=== PATIENT | female | born 1950 | race Caucasian/White ===

== ENCOUNTER → 2019-01-20 09:58 | Outpatient (CLI) | payer OTHER, MEDICAID, SELFPAY ==
--- NOTE | 2019-01-20 | DI.RAD.S_ITS ---
This blank DEXA report has been sent in error by the PACS system. The correct and complete report will be forthcoming in 1-2 days. Thank you for your patience and understanding. Dictated by: Alex Mitchell M.D. on 01/20/2019 at 12:11 Approved by: Rikki Man M.D. on 03/17/2019 at 6:24
== END ==
PROVIDERS: PCP Family Medicine; Visit Provider Family Medicine
DX: Z78.0 Asymptomatic menopausal state (principal); Z90.722 Acquired absence of ovaries, bilateral
CPT/HCPCS: 77080

== ENCOUNTER → 2019-05-26 12:02 | Outpatient (CLI) | payer OTHER, MEDICAID, SELFPAY ==
--- NOTE | 2019-05-26 | DI.US.S_ITS ---
PROCEDURE: US THYROID INDICATIONS: thyroid nodule TECHNIQUE: Real-time scanning was performed of the thyroid gland, with image documentation. COMPARISON: [facility], CT, SOFT TISSUE NECK WITHOUT CONTR, 10/02/2017, 10:51. FINDINGS: Right: Thyroid lobe measures 5.1 x 2.1 x 1.7 cm, and is diffusely heterogeneous in echotexture. Multiple lymph nodes, largest measuring 1.2 cm in AP diameter. Left: Thyroid lobe measures 5.0 x 1.7 x 1.5 cm, and is diffusely heterogeneous in echotexture. Multiple neck lymph nodes, largest measuring 1.1 cm in maximal short axis. Isthmus: 6.0 mm thick. Nodule number: 1 Location: Right mid Size: Decreased at 0.7 x 0.4 x 0.8 cm. Composition: Predominantly solid Echogenicity: Hypoechoic Shape: wider than tall. Margins: Smooth Echogenic foci: None Total points: 4 ACR TI-RADS category: Moderately suspicious Nodule number: 2 Location: Right mid Size: Decreased at 0.4 x 0.3 x 0.3 cm. Composition: Predominantly solid Echogenicity: Hypoechoic Shape: wider than tall. Margins: Smooth Echogenic foci: Punctate internal echogenic foci Total points: 7 ACR TI-RADS category: Highly suspicious Nodule number: 3 Location: Left inferior Size: Slightly increased at 1.2 x 0.8 x 1.0 cm. Composition: Predominantly cystic Echogenicity: Hypoechoic Shape: wider than tall. Margins: Smooth Echogenic foci: None Total points: 2 ACR TI-RADS category: No suspicious Nodule number: 4 Location: Left mid Size: Unchanged 0.6 x 0.4 x 0.5 cm. Composition: Predominantly solid Echogenicity: Hypoechoic Shape: wider than tall. Margins: Smooth Echogenic foci: Internal punctate echogenic foci Total points: 7 ACR TI-RADS category: Highly suspicious IMPRESSION: Bilateral thyroid nodules as above. Recommend continued followup ultrasound as detailed below. Enlarged lymph nodes present. Recommend clinical correlation and management. ACR TI-RADS definitions and recommendations: TI-RADS 1 (benign): 0 points. FNA not needed. TI-RADS 2 (not suspicious): 2 points. FNA not needed. TI-RADS 3 (mildly suspicious): 3 points. * FNA if 2.5 cm or larger, follow up if 1.5 cm or larger (at 1, 3, and 5 years). TI-RADS 4 (moderately suspicious): 4-6 points. * FNA if 1.5 cm or larger, follow up if 1 cm or larger (at 1, 2, 3, and 5 years). TI-RADS 5 (highly suspicious): 7 points or more. * FNA if 1 cm or larger, follow up if 0.5 cm or larger (every year for 5 years). Dictated by: Jorge Luis De Leon [facility] Interpreted: Merlyn Carrington MD on 05/26/2019 at 15:48 Approved by: Merlyn Carrington MD, PhD on 05/27/2019 at 12:19
== END ==
PROVIDERS: PCP Family Medicine; Visit Provider Family Medicine
DX: E04.2 Nontoxic multinodular goiter (principal); R59.0 Localized enlarged lymph nodes
CPT/HCPCS: 76536

== ENCOUNTER 2019-07-18 11:45 | Outpatient (RCR) | payer OTHER, MEDICAID, SELFPAY ==
--- NOTE | 2019-04-30 16:32 | PT.OIE ---
Current Diagnoses Other cervical disc degeneration, unspecified cervical region (04/30/19) Cervicalgia (04/30/19) Abnormal posture (04/30/19) Weakness (04/30/19) Visit Care Team Role Provider Type Margaret Vuong DO Primary Care Provider Non-Staff Specialty: Family Practice Address: [address] [place] [address], [place], [address] Email: Amy Baca MD Attending Provider Non-Staff Specialty: Family Practice Address: [address] [place] [address], [place], [address] Email: Physical Therapy Initial Evaluation PT-OP-A Visit Information Start: 04/29/19 16:22 Freq: Status: Active Protocol: Document 04/30/19 10:15 SAK (Rec: 04/30/19 15:12 SAK [id number]) Out-Patient Physical Therapy Visit Information Visit Information Visit Type Initial Evaluation Visit Start Time 10:15 Visit Stop Time 11:12 Total Visit Minutes 57 Visit Number 1 Number of ORGAN TUNER Visits 0 PT-OP-B Current Condition Start: 04/29/19 16:22 Freq: Status: Active Protocol: Document 04/30/19 10:15 SAK (Rec: 04/30/19 15:12 SAK [id number]) Current Condition History of Current Condition Onset Date 11/13/18 Current Complaints disabling neck pain, occasional left hand numbness History of Current Condition Patient underwent cervical spine surgery including discectomy and fusion C6-C7 per patient; no surgical report available. Has had PT in inpatient rehab then home health, being discharged from home health PT 1 month ago. Was working primarily on gait, balance, did some UE ex. No treatment focused specifically on her neck. Patient reports she spends all day out of bed , doesn't have chair that has neck or head support, spends a lot of time on the computer. States she is unaware of her posture. Reports last x-ray showed bone growth and healing wasn't occuring around her fusion Future Testing and Treatments Planned Having x-ray tomorrow at Treatment Goals Patient/Caregiver Goals Decrease pain, improve activity tolerance. 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 Current Functional Impairments (Reported) Functional Limitations- ADL's painful Functional Limitations- Mobility/Gait walks with FWW Functional Limitations- Work/School painful Personal Factors Other Personal Factors That May Effect obesity Therapy/Recovery PT-OP-C Subjective Start: 04/29/19 16:22 Freq: Status: Active Protocol: Document 04/30/19 10:15 SAK (Rec: 04/30/19 15:12 SAK [id number]) Patient Questionnaires Neck Disability Index NDI Score 52% OP-PT Pain Assessment Location cervical spine, upper to mid thoracic spine Intensity 7 Description Aching,Burning,Pressure, Radiating,Tender,Tightness, Throbbing,Tingling Pain Behaviors Pain Behaviors Facial Grimacing,Guarding, Wincing PT-OP-F Manual Assessment Start: 04/29/19 16:22 Freq: Status: Active Protocol: Document 04/30/19 10:15 SAK (Rec: 04/30/19 15:12 SAK [id number]) Manual Assessments Joint Mobility Assessment Joint Mobility Assessment not assessed due to surgical procedure, plan for repeat x- ray tomorrow PT-OP-G Mobility & Gait Start: 04/29/19 16:22 Freq: Status: Active Protocol: Document 04/30/19 10:15 SAK (Rec: 04/30/19 15:12 SAK [id number]) OP Gait Assessment Gait Gait Assistance Required: Standby Assistance Assistive Devices Assistive Device Front Wheeled Walker Gait Deviations General Gait Pattern Decreased Stride Length, Decreased Feet Clearance, Flexed Trunk Factors Limiting Gait Function Factors Limiting Gait Function Decreased Activity Tolerance, Pain Comments Gait Comments forward head, rounded shoulders PT-OP-H Neuro Start: 04/29/19 16:22 Freq: Status: Active Protocol: Document 04/30/19 10:15 SAK (Rec: 04/30/19 15:12 SAK [id number]) Sensation Evaluation Gross Sensation Sensation Description Paresthesia Dermatome Impairments C5,C6,C7 PT-OP-J Posture/Palpation/Skin Start: 04/29/19 16:22 Freq: Status: Active Protocol: Document 04/30/19 10:15 SAK (Rec: 04/30/19 15:12 SAK [id number]) Posture Evaluation Position Sitting Head/C-Spine Posture Forward Head T-Spine Posture Increased Kyphosis Shoulder Posture (L) Rounded,(R) Rounded Scapula Posture (L) Protracted,(R) Protracted Arm Posture (L) Internally Rotated,(R) Internally Rotated Palpation Assessment Location cervical spine Palpation Findings Tenderness Palpation Details tenderness with minimal palpation. Increased soft tissue tightness cervical spine bilaterally with poor tolerance for palpation, difficult to palpate bony prominences. PT-OP-K Range of Motion Start: 04/29/19 16:22 Freq: Status: Active Protocol: Document 04/30/19 10:15 SAK (Rec: 04/30/19 15:12 [facility] [id number]) Cervical Spine Range of Motion Cervical Spine Active Testing Position Sitting Flexion 60 Extension 10 Rotation Left 48 Rotation Right 57 Lateral Flexion Left 20 Lateral Flexion Right 28 ROM Limitations Pain Shoulder Goniometric Range of Motion Shoulder Active Shoulder ROM WFL Yes Testing Position Sitting Elbow/Forearm Range of Motion Elbow/Forearm elif Elbow/Forearm ROM WFL Yes PT-OP-L Special Tests Start: 04/29/19 16:22 Freq: Status: Active Protocol: Document 04/30/19 10:15 SAK (Rec: 04/30/19 15:12 [facility] [id number]) Special Tests Neural Special Tests- Upper Body Upper Limb Tension Test Test Results positive left PT-OP-M Strength Start: 04/29/19 16:22 Freq: Status: Active Protocol: Document 04/30/19 10:15 SAK (Rec: 04/30/19 15:12 [facility] [id number]) Cervical Spine Strength Cervical Spine Manual Muscle Testing Reason Not Measured Orthopedic Precautions,Pain Shoulder Strength Shoulder Manual Muscle Testing elif Comments demonstrates anti-gravity strength, no MMT due to neck pain and orthopedic precautions Hand Button Machine Operator/Pinch Strength Hand Dominance Hand Dominance Right PT-OP-Q Treatments Start: 04/29/19 16:22 Freq: Status: Active Protocol: Document 04/30/19 10:15 SAK (Rec: 04/30/19 15:12 [facility] [id number]) Self-Care/Home Management Treatment Education Patient Education Home Exercise Program,Pain Management,Posture Other Education issued written HEP sleep support; issued handout Activities Self-Care/Home Management Activities resting supine with ice 1-2x/ day , not waiting until end of day when in pain. Try to obtain chair with headrest for periodic support PT-OP-R Modalities Start: 04/29/19 16:22 Freq: Status: Active Protocol: Document 04/30/19 10:15 [facility] (Rec: 04/30/19 15:12 [facility] [id number]) Hot Pack/Cold Pack Treatment Cold Pack Location cervical spine Patient Position Hooklying Treatment Duration (minutes) 10 Patient Tolerance Good PT-OP-T Assessment and Plan Start: 04/29/19 16:22 Freq: Status: Active Protocol: Document 04/30/19 10:15 [facility] (Rec: 04/30/19 15:12 [facility] [id number]) Physical Therapy Assessment Rehab Potential Rehabilitation Potential Good Evaluation Complexity Number of Personal Factors/Comorbidities 3 or More Number of Body Systems Impaired 3 Clinical Presentation at Evaluation Evolving Impairments Impairments Activity Tolerance,Pain, Posture Goals pain Impairment pain Short Term Goal (STG) Decrease pain to no greater than 5/10 STG Duration 04/30/19 Professor Of Journalism Goal (LTG) Decrease pain to no greater than 3/10 with all usual activities. LTG Duration 07/29/19 posture Impairment posture Short Term Goal (STG) Instruct in neutral postural alignment and HEP for postural correction and spinal stabilization STG Duration 04/30/19 Assisted Goal (LTG) Patient to be independent with HEP and demonstrate improved postural awareness and alignment at rest and with functional activities LTG Duration 07/29/19 One Impairment activity tolerance Short Term Goal (STG) Improve neck disability index score no greater than 40% STG Duration 04/30/19 Assisted Goal (LTG) Improve neck disability index score to no greater than 25% to allow her to tolerate her usual activities LTG Duration 07/29/19 Assessment Summary Assessment Patient presents with function -limiting pain cervical spine with radicular symptoms and nerve tension signs s/p cervical spine surgery. She has postural dysfunction, limited ROM, general weakness. Has repeat x-ray tomorrow to determine extent of bone grafting around fusion. Would benefit from PT to decrease pain, improve postural alignment and stabilization and general strength to allow her to improve her activity tolerance. Physical Therapy Plan Frequency and Duration Frequency of Treatment 2x/Week Duration of Treatment 12 wks Plan of Care Start Date 04/30/19 Plan of Care End Date 07/29/19 Therapeutic Interventions Therapeutic Interventions Aquatic Therapy,Home Exercise Program,Neuromuscular Re- education,Patient/Caregiver Education,Self-Care/Home Management,Soft Tissue Mobilization,Taping, Therapeutic Activities, Therapeutic Exercises Modalities Cold Pack/Ice Massage,Electric Stimulation,Hot Packs Next Visit Focus/Plan Next Note Type Treatment Note Next Visit Plan Review HEP, gentle progression of ther ex for spinal stabilization, postural correction. Manual therapy and modalities as indicated.
--- NOTE | 2019-04-30 16:33 | PT.OPPOC ---
Current Diagnoses Other cervical disc degeneration, unspecified cervical region (04/30/19) Cervicalgia (04/30/19) Abnormal posture (04/30/19) Weakness (04/30/19) Visit Care Team Role Provider Type Margaret Vuong DO Primary Care Provider Non-Staff Specialty: [facility] Address: [address] [place] [address], [place], [address] Email: Amy Baca MD Attending Provider Non-Staff Specialty: [facility] Address: [address] [place] [address], [id number] Email: Plan Of Care PT-OP-T Assessment and Plan Start: 04/29/19 16:22 Freq: Status: Active Protocol: Document 04/30/19 10:15 SAK (Rec: 04/30/19 15:12 SAK [id number]) Physical Therapy Assessment Rehab Potential Rehabilitation Potential Good Evaluation Complexity Number of Personal Factors/Comorbidities 3 or More Number of Body Systems Impaired 3 Clinical Presentation at Evaluation Evolving Impairments Impairments Activity Tolerance,Pain, Posture Goals pain Impairment pain Short Term Goal (STG) Decrease pain to no greater than 5/10 STG Duration 04/30/19 Usp Goal (LTG) Decrease pain to no greater than 3/10 with all usual activities. LTG Duration 07/29/19 posture Impairment posture Short Term Goal (STG) Instruct in neutral postural alignment and HEP for postural correction and spinal stabilization STG Duration 04/30/19 Materials Research Engineer Goal (LTG) Patient to be independent with HEP and demonstrate improved postural awareness and alignment at rest and with functional activities LTG Duration 07/29/19 One Impairment activity tolerance Short Term Goal (STG) Improve neck disability index score no greater than 40% STG Duration 04/30/19 Usp Goal (LTG) Improve neck disability index score to no greater than 25% to allow her to tolerate her usual activities LTG Duration 07/29/19 Assessment Summary Assessment Patient presents with function -limiting pain cervical spine with radicular symptoms and nerve tension signs s/p cervical spine surgery. She has postural dysfunction, limited ROM, general weakness. Has repeat x-ray tomorrow to determine extent of bone grafting around fusion. Would benefit from PT to decrease pain, improve postural alignment and stabilization and general strength to allow her to improve her activity tolerance. Physical Therapy Plan Frequency and Duration Frequency of Treatment 2x/Week Duration of Treatment 12 wks Plan of Care Start Date 04/30/19 Plan of Care End Date 07/29/19 Therapeutic Interventions Therapeutic Interventions Aquatic Therapy,Home Exercise Program,Neuromuscular Re- education,Patient/Caregiver Education,Self-Care/Home Management,Soft Tissue Mobilization,Taping, Therapeutic Activities, Therapeutic Exercises Modalities Cold Pack/Ice Massage,Electric Stimulation,Hot Packs Next Visit Focus/Plan Next Note Type Treatment Note Next Visit Plan Review HEP, gentle progression of ther ex for spinal stabilization, postural correction. Manual therapy and modalities as indicated. Plan of Care Dates Plan of Care Start Date 04/30/19 Plan of Care End Date 07/29/19 Please Sign and Return: I have reviewed this Plan of Care and certify that the skilled therapy services above are required to meet the patient?s needs. Physician Signature Date Printed Name and Credentials Clinical Instructor Signature Printed Name and Credentials
--- NOTE | 2019-05-02 12:00 | PT.OTN ---
Current Diagnoses Other cervical disc degeneration, unspecified cervical region (05/02/19) Cervicalgia (05/02/19) Abnormal posture (05/02/19) Weakness (05/02/19) Physical Therapy Treatment Note PT-OP-A Visit Information Start: 04/29/19 16:22 Freq: Status: Active Protocol: Document 05/02/19 11:15 DCW (Rec: 05/02/19 12:00 DCW [id number]) Out-Patient Physical Therapy Visit Information Visit Information Visit Type Treatment Note Visit Start Time 11:15 Visit Stop Time 12:10 Total Visit Minutes 55 Visit Number 2 Number of HALF SECTION IRONER Visits 0 Evaluation Information Evaluation Date 04/30/19 PT-OP-B Current Condition Start: 04/29/19 16:22 Freq: Status: Active Protocol: Document 04/30/19 10:15 SAK (Rec: 04/30/19 15:12 SAK [id number]) Current Condition History of Current Condition Onset Date 11/13/18 Current Complaints disabling neck pain, occasional left hand numbness History of Current Condition Patient underwent cervical spine surgery including discectomy and fusion C6-C7 per patient; no surgical report available. Has had PT in inpatient rehab then home health, being discharged from home health PT 1 month ago. Was working primarily on gait, balance, did some UE ex. No treatment focused specifically on her neck. Patient reports she spends all day out of bed , doesn't have chair that has neck or head support, spends a lot of time on the computer. States she is unaware of her posture. Reports last x-ray showed bone growth and healing wasn't occuring around her fusion Future Testing and Treatments Planned Having x-ray tomorrow at Treatment Goals Patient/Caregiver Goals Decrease pain, improve activity tolerance. 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 PT-OP-F Manual Assessment Start: 04/29/19 16:22 Freq: Status: Active Protocol: Document 04/30/19 10:15 SAK (Rec: 04/30/19 15:12 SAK [id number]) Manual Assessments Joint Mobility Assessment Joint Mobility Assessment not assessed due to surgical procedure, plan for repeat x- ray tomorrow PT-OP-G Mobility & Gait Start: 04/29/19 16:22 Freq: Status: Active Protocol: Document 04/30/19 10:15 SAK (Rec: 04/30/19 15:12 SAK [id number]) OP Gait Assessment Gait Gait Assistance Required: Standby Assistance Assistive Devices Assistive Device Front Wheeled Walker Gait Deviations General Gait Pattern Decreased Stride Length, Decreased Feet Clearance, Flexed Trunk Factors Limiting Gait Function Factors Limiting Gait Function Decreased Activity Tolerance, Pain Comments Gait Comments forward head, rounded shoulders PT-OP-H Neuro Start: 04/29/19 16:22 Freq: Status: Active Protocol: Document 04/30/19 10:15 SAK (Rec: 04/30/19 15:12 SAK [id number]) Sensation Evaluation Gross Sensation Sensation Description Paresthesia Dermatome Impairments C5,C6,C7 PT-OP-J Posture/Palpation/Skin Start: 04/29/19 16:22 Freq: Status: Active Protocol: Document 04/30/19 10:15 SAK (Rec: 04/30/19 15:12 SAK [id number]) Posture Evaluation Position Sitting Head/C-Spine Posture Forward Head T-Spine Posture Increased Kyphosis Shoulder Posture (L) Rounded,(R) Rounded Scapula Posture (L) Protracted,(R) Protracted Arm Posture (L) Internally Rotated,(R) Internally Rotated Palpation Assessment Location cervical spine Palpation Findings Tenderness Palpation Details tenderness with minimal palpation. Increased soft tissue tightness cervical spine bilaterally with poor tolerance for palpation, difficult to palpate bony prominences. PT-OP-K Range of Motion Start: 04/29/19 16:22 Freq: Status: Active Protocol: Document 04/30/19 10:15 SAK (Rec: 04/30/19 15:12 SAK [id number]) Cervical Spine Range of Motion Cervical Spine Active Testing Position Sitting Flexion 60 Extension 10 Rotation Left 48 Rotation Right 57 Lateral Flexion Left 20 Lateral Flexion Right 28 ROM Limitations Pain Shoulder Goniometric Range of Motion Shoulder Active Shoulder ROM WFL Yes Testing Position Sitting Elbow/Forearm Range of Motion Elbow/Forearm elif Elbow/Forearm ROM WFL Yes PT-OP-L Special Tests Start: 04/29/19 16:22 Freq: Status: Active Protocol: Document 04/30/19 10:15 SAK (Rec: 04/30/19 15:12 SAK [id number]) Special Tests Neural Special Tests- Upper Body Upper Limb Tension Test Test Results positive left PT-OP-M Strength Start: 04/29/19 16:22 Freq: Status: Active Protocol: Document 04/30/19 10:15 SAK (Rec: 04/30/19 15:12 SAK [id number]) Cervical Spine Strength Cervical Spine Manual Muscle Testing Reason Not Measured Orthopedic Precautions,Pain Shoulder Strength Shoulder Manual Muscle Testing elif Comments demonstrates anti-gravity strength, no MMT due to neck pain and orthopedic precautions Hand Twist Tester/Pinch Strength Hand Dominance Hand Dominance Right PT-OP-Q Treatments Start: 04/29/19 16:22 Freq: Status: Active Protocol: Document 05/02/19 11:15 DCW (Rec: 05/02/19 12:00 DCW [id number]) Cardio Equipment Upper Body Ergometer (UBE) Duration (Minutes) 2 Other stopped d/t finger numbness Therapeutic Exercises Supine Exercises Horizontal Adduction Supine Exercise Name Horizontal Adduction Side bilateral Resistance 1# Serratus Punch Supine Exercise Name Serratus Punch Side bilateral Resistance 1# Sitting Exercises Flexion Sitting Exercise Name Flexion Side bilateral Resistance 1# Abduction Sitting Exercise Name Abduction Side bilateral Resistance 1# Shoulder Extension Sitting Exercise Name Extension Side bilateral Resistance Lv 1 L, Lv 2 R Equipment Used T-band Rows Sitting Exercise Name Rows Side bilateral Resistance Lv 1 Equipment Used T-band Manual Therapy Treatment Soft Tissue Mobilization Upper Trap Body Location B Upper Trap Mobilization Type Strumming,Sustained Pressure, Trigger Point Release Intensity/Depth Superficial Body Position Hooklying PT-OP-R Modalities Start: 04/29/19 16:22 Freq: Status: Active Protocol: Document 05/02/19 11:15 DCW (Rec: 05/02/19 12:00 DCW [id number]) Electric Stimulation Electric Stimulation Interferential Current (IFC) Body Location Upper Trap Duration (Minutes) 15 Patient Position Sitting Combined With Heat/Cold Cold Pack PT-OP-T Assessment and Plan Start: 04/29/19 16:22 Freq: Status: Active Protocol: Document 05/02/19 11:15 DCW (Rec: 05/02/19 12:00 DCW [id number]) Physical Therapy Assessment Impairments Impairments Activity Tolerance,Pain, Posture Goals pain Impairment pain Short Term Goal (STG) Decrease pain to no greater than 5/10 STG Duration 04/30/19 Punchboard Filling Machine Operator Goal (LTG) Decrease pain to no greater than 3/10 with all usual activities. LTG Duration 07/29/19 posture Impairment posture Short Term Goal (STG) Instruct in neutral postural alignment and HEP for postural correction and spinal stabilization STG Duration 04/30/19 Detention Goal (LTG) Patient to be independent with HEP and demonstrate improved postural awareness and alignment at rest and with functional activities LTG Duration 07/29/19 One Impairment activity tolerance Short Term Goal (STG) Improve neck disability index score no greater than 40% STG Duration 04/30/19 Punchboard Filling Machine Operator Goal (LTG) Improve neck disability index score to no greater than 25% to allow her to tolerate her usual activities LTG Duration 07/29/19 Assessment Summary Assessment Pt tolerated treatment well, had minimal soreness in her arm or shoulder with exercise. Pt's upper trap tone minimal today. Trial of e-stim for pain control. Physical Therapy Plan Frequency and Duration Frequency of Treatment 2x/Week Duration of Treatment 12 wks Plan of Care Start Date 04/30/19 Plan of Care End Date 07/29/19 Therapeutic Interventions Therapeutic Interventions Aquatic Therapy,Home Exercise Program,Neuromuscular Re- education,Patient/Caregiver Education,Self-Care/Home Management,Soft Tissue Mobilization,Taping, Therapeutic Activities, Therapeutic Exercises Modalities Cold Pack/Ice Massage,Electric Stimulation,Hot Packs Next Visit Focus/Plan Next Note Type Treatment Note Next Visit Plan Review HEP, gentle progression of ther ex for spinal stabilization, postural correction. Manual therapy and modalities as indicated.
--- NOTE | 2019-05-07 15:16 | PT.OTN ---
Current Diagnoses Other cervical disc degeneration, unspecified cervical region (05/07/19) Abnormal posture (05/07/19) Weakness (05/07/19) Physical Therapy Treatment Note PT-OP-A Visit Information Start: 04/29/19 16:22 Freq: Status: Active Protocol: Document 05/07/19 14:29 SAK (Rec: 05/07/19 15:15 SAK [id number]) Out-Patient Physical Therapy Visit Information Visit Information Visit Type Treatment Note Visit Start Time 14:30 Visit Stop Time 15:25 Total Visit Minutes 55 Visit Number 3 Number of PASTRY CHEF Visits 0 Evaluation Information Evaluation Date 04/30/19 PT-OP-B Current Condition Start: 04/29/19 16:22 Freq: Status: Active Protocol: Document 04/30/19 10:15 SAK (Rec: 04/30/19 15:12 SAK [id number]) Current Condition History of Current Condition Onset Date 11/13/18 Current Complaints disabling neck pain, occasional left hand numbness History of Current Condition Patient underwent cervical spine surgery including discectomy and fusion C6-C7 per patient; no surgical report available. Has had PT in inpatient rehab then home health, being discharged from home health PT 1 month ago. Was working primarily on gait, balance, did some UE ex. No treatment focused specifically on her neck. Patient reports she spends all day out of bed , doesn't have chair that has neck or head support, spends a lot of time on the computer. States she is unaware of her posture. Reports last x-ray showed bone growth and healing wasn't occuring around her fusion Future Testing and Treatments Planned Having x-ray tomorrow at Treatment Goals Patient/Caregiver Goals Decrease pain, improve activity tolerance. 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 Swelling left fingers occus sometimes when laying down or when turning head to poing to pain. Using TENS unit. PT-OP-F Manual Assessment Start: 04/29/19 16:22 Freq: Status: Active Protocol: Document 04/30/19 10:15 SAK (Rec: 04/30/19 15:12 SAK [id number]) Manual Assessments Joint Mobility Assessment Joint Mobility Assessment not assessed due to surgical procedure, plan for repeat x- ray tomorrow PT-OP-G Mobility & Gait Start: 04/29/19 16:22 Freq: Status: Active Protocol: Document 04/30/19 10:15 SAK (Rec: 04/30/19 15:12 SAK [id number]) OP Gait Assessment Gait Gait Assistance Required: Standby Assistance Assistive Devices Assistive Device Front Wheeled Walker Gait Deviations General Gait Pattern Decreased Stride Length, Decreased Feet Clearance, Flexed Trunk Factors Limiting Gait Function Factors Limiting Gait Function Decreased Activity Tolerance, Pain Comments Gait Comments forward head, rounded shoulders PT-OP-H Neuro Start: 04/29/19 16:22 Freq: Status: Active Protocol: Document 04/30/19 10:15 SAK (Rec: 04/30/19 15:12 [facility] [id number]) Sensation Evaluation Gross Sensation Sensation Description Paresthesia Dermatome Impairments C5,C6,C7 PT-OP-J Posture/Palpation/Skin Start: 04/29/19 16:22 Freq: Status: Active Protocol: Document 04/30/19 10:15 SAK (Rec: 04/30/19 15:12 [facility] [id number]) Posture Evaluation Position Sitting Head/C-Spine Posture Forward Head T-Spine Posture Increased Kyphosis Shoulder Posture (L) Rounded,(R) Rounded Scapula Posture (L) Protracted,(R) Protracted Arm Posture (L) Internally Rotated,(R) Internally Rotated Palpation Assessment Location cervical spine Palpation Findings Tenderness Palpation Details tenderness with minimal palpation. Increased soft tissue tightness cervical spine bilaterally with poor tolerance for palpation, difficult to palpate bony prominences. PT-OP-K Range of Motion Start: 04/29/19 16:22 Freq: Status: Active Protocol: Document 04/30/19 10:15 SAK (Rec: 04/30/19 15:12 SAK [id number]) Cervical Spine Range of Motion Cervical Spine Active Testing Position Sitting Flexion 60 Extension 10 Rotation Left 48 Rotation Right 57 Lateral Flexion Left 20 Lateral Flexion Right 28 ROM Limitations Pain Shoulder Goniometric Range of Motion Shoulder Active Shoulder ROM WFL Yes Testing Position Sitting Elbow/Forearm Range of Motion Elbow/Forearm elif Elbow/Forearm ROM WFL Yes PT-OP-L Special Tests Start: 04/29/19 16:22 Freq: Status: Active Protocol: Document 04/30/19 10:15 SAK (Rec: 04/30/19 15:12 [facility] [id number]) Special Tests Neural Special Tests- Upper Body Upper Limb Tension Test Test Results positive left PT-OP-M Strength Start: 04/29/19 16:22 Freq: Status: Active Protocol: Document 04/30/19 10:15 SAK (Rec: 04/30/19 15:12 [facility] [id number]) Cervical Spine Strength Cervical Spine Manual Muscle Testing Reason Not Measured Orthopedic Precautions,Pain Shoulder Strength Shoulder Manual Muscle Testing elif Comments demonstrates anti-gravity strength, no MMT due to neck pain and orthopedic precautions Hand Hand Worker/Pinch Strength Hand Dominance Hand Dominance Right PT-OP-Q Treatments Start: 04/29/19 16:22 Freq: Status: Active Protocol: Document 05/07/19 14:29 SAK (Rec: 05/07/19 15:15 [facility] [id number]) Therapeutic Exercises Supine Exercises chest press Resistance 1# Reps/Minutes 10x Horizontal Adduction Supine Exercise Name Horizontal Adduction Side bilateral Resistance 1# Serratus Punch Supine Exercise Name Serratus Punch Side bilateral Resistance 1# Sitting Exercises Flexion Sitting Exercise Name Flexion Side bilateral Resistance 1# Reps/Minutes 10x Abduction Sitting Exercise Name Abduction Side bilateral Resistance 1# Reps/Minutes 4x Shoulder Extension Sitting Exercise Name Extension Side bilateral Resistance Lv 1 L, Lv 2 R Equipment Used T-band Reps/Minutes 10x Rows Sitting Exercise Name Rows Side bilateral Resistance Lv 1 Equipment Used T-band Reps/Minutes 10x Manual Therapy Treatment Soft Tissue Mobilization Upper Trap Body Location B Upper Trap, c/s Mobilization Type Strumming,Sustained Pressure, Trigger Point Release Intensity/Depth Moderate Body Position Hooklying PT-OP-R Modalities Start: 04/29/19 16:22 Freq: Status: Active Protocol: Document 05/07/19 14:29 SAK (Rec: 05/07/19 15:15 [facility] [id number]) Electric Stimulation Electric Stimulation Interferential Current (IFC) Body Location Upper Trap, c/s Duration (Minutes) 15 Patient Position Sitting Combined With Heat/Cold Cold Pack PT-OP-T Assessment and Plan Start: 04/29/19 16:22 Freq: Status: Active Protocol: Document 05/07/19 14:29 MARTHA (Rec: 05/07/19 15:15 [facility] [id number]) Physical Therapy Assessment Impairments Impairments Activity Tolerance,Pain, Posture Goals pain Impairment pain Short Term Goal (STG) Decrease pain to no greater than 5/10 STG Duration 04/30/19 Bath Steward/Stewardess Goal (LTG) Decrease pain to no greater than 3/10 with all usual activities. LTG Duration 07/29/19 posture Impairment posture Short Term Goal (STG) Instruct in neutral postural alignment and HEP for postural correction and spinal stabilization STG Duration 04/30/19 Bath Steward/Stewardess Goal (LTG) Patient to be independent with HEP and demonstrate improved postural awareness and alignment at rest and with functional activities LTG Duration 07/29/19 One Impairment activity tolerance Short Term Goal (STG) Improve neck disability index score no greater than 40% STG Duration 04/30/19 Fdc Goal (LTG) Improve neck disability index score to no greater than 25% to allow her to tolerate her usual activities LTG Duration 07/29/19 Assessment Summary Assessment Patient has mod muscle tightness right posterior cervical musculature. Difficulty with shoulder abduction left. Mild tingling 2 different times with ther ex. Physical Therapy Plan Frequency and Duration Frequency of Treatment 2x/Week Duration of Treatment 12 wks Plan of Care Start Date 04/30/19 Plan of Care End Date 07/29/19 Therapeutic Interventions Therapeutic Interventions Aquatic Therapy,Home Exercise Program,Neuromuscular Re- education,Patient/Caregiver Education,Self-Care/Home Management,Soft Tissue Mobilization,Taping, Therapeutic Activities, Therapeutic Exercises Modalities Cold Pack/Ice Massage,Electric Stimulation,Hot Packs Next Visit Focus/Plan Next Note Type Treatment Note Next Visit Plan Continue PT per POC to decrease pain, improve posture and activity tolerance.
--- NOTE | 2019-05-12 14:28 | PT.OTN ---
Current Diagnoses Other cervical disc degeneration, unspecified cervical region (05/12/19) Abnormal posture (05/12/19) Weakness (05/12/19) Physical Therapy Treatment Note PT-OP-A Visit Information Start: 04/29/19 16:22 Freq: Status: Active Protocol: Document 05/12/19 13:50 DCW (Rec: 05/12/19 14:27 DCW [id number]) Out-Patient Physical Therapy Visit Information Visit Information Visit Type Treatment Note Visit Start Time 13:50 Visit Stop Time 14:40 Total Visit Minutes 50 Visit Number 4 Number of MEDICAL GENETICIST Visits 0 Evaluation Information Evaluation Date 04/30/19 PT-OP-B Current Condition Start: 04/29/19 16:22 Freq: Status: Active Protocol: Document 04/30/19 10:15 SAK (Rec: 04/30/19 15:12 SAK [id number]) Current Condition History of Current Condition Onset Date 11/13/18 Current Complaints disabling neck pain, occasional left hand numbness History of Current Condition Patient underwent cervical spine surgery including discectomy and fusion C6-C7 per patient; no surgical report available. Has had PT in inpatient rehab then home health, being discharged from home health PT 1 month ago. Was working primarily on gait, balance, did some UE ex. No treatment focused specifically on her neck. Patient reports she spends all day out of bed , doesn't have chair that has neck or head support, spends a lot of time on the computer. States she is unaware of her posture. Reports last x-ray showed bone growth and healing wasn't occuring around her fusion Future Testing and Treatments Planned Having x-ray tomorrow at Treatment Goals Patient/Caregiver Goals Decrease pain, improve activity tolerance. 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 PT-OP-F Manual Assessment Start: 04/29/19 16:22 Freq: Status: Active Protocol: Document 04/30/19 10:15 SAK (Rec: 04/30/19 15:12 SAK [id number]) Manual Assessments Joint Mobility Assessment Joint Mobility Assessment not assessed due to surgical procedure, plan for repeat x- ray tomorrow PT-OP-G Mobility & Gait Start: 04/29/19 16:22 Freq: Status: Active Protocol: Document 04/30/19 10:15 SAK (Rec: 04/30/19 15:12 SAK [id number]) OP Gait Assessment Gait Gait Assistance Required: Standby Assistance Assistive Devices Assistive Device Front Wheeled Walker Gait Deviations General Gait Pattern Decreased Stride Length, Decreased Feet Clearance, Flexed Trunk Factors Limiting Gait Function Factors Limiting Gait Function Decreased Activity Tolerance, Pain Comments Gait Comments forward head, rounded shoulders PT-OP-H Neuro Start: 04/29/19 16:22 Freq: Status: Active Protocol: Document 04/30/19 10:15 SAK (Rec: 04/30/19 15:12 SAK [id number]) Sensation Evaluation Gross Sensation Sensation Description Paresthesia Dermatome Impairments C5,C6,C7 PT-OP-J Posture/Palpation/Skin Start: 04/29/19 16:22 Freq: Status: Active Protocol: Document 04/30/19 10:15 SAK (Rec: 04/30/19 15:12 SAK [id number]) Posture Evaluation Position Sitting Head/C-Spine Posture Forward Head T-Spine Posture Increased Kyphosis Shoulder Posture (L) Rounded,(R) Rounded Scapula Posture (L) Protracted,(R) Protracted Arm Posture (L) Internally Rotated,(R) Internally Rotated Palpation Assessment Location cervical spine Palpation Findings Tenderness Palpation Details tenderness with minimal palpation. Increased soft tissue tightness cervical spine bilaterally with poor tolerance for palpation, difficult to palpate bony prominences. PT-OP-K Range of Motion Start: 04/29/19 16:22 Freq: Status: Active Protocol: Document 04/30/19 10:15 SAK (Rec: 04/30/19 15:12 SAK [id number]) Cervical Spine Range of Motion Cervical Spine Active Testing Position Sitting Flexion 60 Extension 10 Rotation Left 48 Rotation Right 57 Lateral Flexion Left 20 Lateral Flexion Right 28 ROM Limitations Pain Shoulder Goniometric Range of Motion Shoulder Active Shoulder ROM WFL Yes Testing Position Sitting Elbow/Forearm Range of Motion Elbow/Forearm elif Elbow/Forearm ROM WFL Yes PT-OP-L Special Tests Start: 04/29/19 16:22 Freq: Status: Active Protocol: Document 04/30/19 10:15 SAK (Rec: 04/30/19 15:12 SAK [id number]) Special Tests Neural Special Tests- Upper Body Upper Limb Tension Test Test Results positive left PT-OP-M Strength Start: 04/29/19 16:22 Freq: Status: Active Protocol: Document 04/30/19 10:15 SAK (Rec: 04/30/19 15:12 SAK [id number]) Cervical Spine Strength Cervical Spine Manual Muscle Testing Reason Not Measured Orthopedic Precautions,Pain Shoulder Strength Shoulder Manual Muscle Testing elif Comments demonstrates anti-gravity strength, no MMT due to neck pain and orthopedic precautions Hand Learning And Development Administrator/Pinch Strength Hand Dominance Hand Dominance Right PT-OP-Q Treatments Start: 04/29/19 16:22 Freq: Status: Active Protocol: Document 05/12/19 13:50 DCW (Rec: 05/12/19 14:27 DCW [id number]) Therapeutic Exercises Supine Exercises Serratus Punch Supine Exercise Name Serratus Punch Side bilateral Resistance 1# Sitting Exercises Chest Press Sitting Exercise Name Chest Press Side bilateral Resistance 1# Flexion Sitting Exercise Name Flexion Side bilateral Resistance 2# Reps/Minutes 10x Abduction Sitting Exercise Name Abduction Side bilateral Resistance 2# Reps/Minutes x10 Shoulder Extension Sitting Exercise Name Extension Side bilateral Resistance Lv 1 L, Lv 2 R Equipment Used T-band Reps/Minutes 10x Rows Sitting Exercise Name Rows Side bilateral Resistance Lv 2 Equipment Used T-band Reps/Minutes x15 Manual Therapy Treatment Soft Tissue Mobilization Upper Trap Body Location B Upper Trap, c/s Mobilization Type Strumming,Sustained Pressure, Trigger Point Release Intensity/Depth Moderate Body Position Hooklying PT-OP-R Modalities Start: 04/29/19 16:22 Freq: Status: Active Protocol: Document 05/12/19 13:50 DCW (Rec: 05/12/19 14:27 DCW [id number]) Electric Stimulation Electric Stimulation Interferential Current (IFC) Body Location Upper Trap, c/s Duration (Minutes) 15 Patient Position Sitting Combined With Heat/Cold Cold Pack PT-OP-T Assessment and Plan Start: 04/29/19 16:22 Freq: Status: Active Protocol: Document 05/12/19 13:50 DCW (Rec: 05/12/19 14:27 DCW [id number]) Physical Therapy Assessment Impairments Impairments Activity Tolerance,Pain, Posture Goals pain Impairment pain Short Term Goal (STG) Decrease pain to no greater than 5/10 STG Duration 04/30/19 Correction Goal (LTG) Decrease pain to no greater than 3/10 with all usual activities. LTG Duration 07/29/19 posture Impairment posture Short Term Goal (STG) Instruct in neutral postural alignment and HEP for postural correction and spinal stabilization STG Duration 04/30/19 Slitter Scorer Cut Off Operator Goal (LTG) Patient to be independent with HEP and demonstrate improved postural awareness and alignment at rest and with functional activities LTG Duration 07/29/19 One Impairment activity tolerance Short Term Goal (STG) Improve neck disability index score no greater than 40% STG Duration 04/30/19 Correction Goal (LTG) Improve neck disability index score to no greater than 25% to allow her to tolerate her usual activities LTG Duration 07/29/19 Assessment Summary Assessment Pt continues to experience occasional tingling in her left hand with certain exercises or positioning. Physical Therapy Plan Frequency and Duration Frequency of Treatment 2x/Week Duration of Treatment 12 wks Plan of Care Start Date 04/30/19 Plan of Care End Date 07/29/19 Therapeutic Interventions Therapeutic Interventions Aquatic Therapy,Home Exercise Program,Neuromuscular Re- education,Patient/Caregiver Education,Self-Care/Home Management,Soft Tissue Mobilization,Taping, Therapeutic Activities, Therapeutic Exercises Modalities Cold Pack/Ice Massage,Electric Stimulation,Hot Packs Next Visit Focus/Plan Next Note Type Treatment Note Next Visit Plan Continue PT per POC to decrease pain, improve posture and activity tolerance.
--- NOTE | 2019-05-14 11:45 | PT.OTN ---
Current Diagnoses Other cervical disc degeneration, unspecified cervical region (05/14/19) Abnormal posture (05/14/19) Weakness (05/14/19) Physical Therapy Treatment Note PT-OP-A Visit Information Start: 04/29/19 16:22 Freq: Status: Active Protocol: Document 05/15/19 08:40 SAK (Rec: 05/15/19 08:51 SAK [id number]) Out-Patient Physical Therapy Visit Information Visit Information Visit Type Treatment Note Visit Start Time 11:45 Visit Stop Time 12:30 Total Visit Minutes 45 Visit Number 5 Number of FOXER Visits 0 Evaluation Information Evaluation Date 04/30/19 PT-OP-B Current Condition Start: 04/29/19 16:22 Freq: Status: Active Protocol: Document 04/30/19 10:15 SAK (Rec: 04/30/19 15:12 SAK [id number]) Current Condition History of Current Condition Onset Date 11/13/18 Current Complaints disabling neck pain, occasional left hand numbness History of Current Condition Patient underwent cervical spine surgery including discectomy and fusion C6-C7 per patient; no surgical report available. Has had PT in inpatient rehab then home health, being discharged from home health PT 1 month ago. Was working primarily on gait, balance, did some UE ex. No treatment focused specifically on her neck. Patient reports she spends all day out of bed , doesn't have chair that has neck or head support, spends a lot of time on the computer. States she is unaware of her posture. Reports last x-ray showed bone growth and healing wasn't occuring around her fusion Future Testing and Treatments Planned Having x-ray tomorrow at Treatment Goals Patient/Caregiver Goals Decrease pain, improve activity tolerance. 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 PT-OP-F Manual Assessment Start: 04/29/19 16:22 Freq: Status: Active Protocol: Document 04/30/19 10:15 SAK (Rec: 04/30/19 15:12 [facility] [id number]) Manual Assessments Joint Mobility Assessment Joint Mobility Assessment not assessed due to surgical procedure, plan for repeat x- ray tomorrow PT-OP-G Mobility & Gait Start: 04/29/19 16:22 Freq: Status: Active Protocol: Document 04/30/19 10:15 SAK (Rec: 04/30/19 15:12 [facility] [id number]) OP Gait Assessment Gait Gait Assistance Required: Standby Assistance Assistive Devices Assistive Device Front Wheeled Walker Gait Deviations General Gait Pattern Decreased Stride Length, Decreased Feet Clearance, Flexed Trunk Factors Limiting Gait Function Factors Limiting Gait Function Decreased Activity Tolerance, Pain Comments Gait Comments forward head, rounded shoulders PT-OP-H Neuro Start: 04/29/19 16:22 Freq: Status: Active Protocol: Document 04/30/19 10:15 SAK (Rec: 04/30/19 15:12 [facility] [id number]) Sensation Evaluation Gross Sensation Sensation Description Paresthesia Dermatome Impairments C5,C6,C7 PT-OP-J Posture/Palpation/Skin Start: 04/29/19 16:22 Freq: Status: Active Protocol: Document 04/30/19 10:15 SAK (Rec: 04/30/19 15:12 [facility] [id number]) Posture Evaluation Position Sitting Head/C-Spine Posture Forward Head T-Spine Posture Increased Kyphosis Shoulder Posture (L) Rounded,(R) Rounded Scapula Posture (L) Protracted,(R) Protracted Arm Posture (L) Internally Rotated,(R) Internally Rotated Palpation Assessment Location cervical spine Palpation Findings Tenderness Palpation Details tenderness with minimal palpation. Increased soft tissue tightness cervical spine bilaterally with poor tolerance for palpation, difficult to palpate bony prominences. PT-OP-K Range of Motion Start: 04/29/19 16:22 Freq: Status: Active Protocol: Document 04/30/19 10:15 SAK (Rec: 04/30/19 15:12 [facility] [id number]) Cervical Spine Range of Motion Cervical Spine Active Testing Position Sitting Flexion 60 Extension 10 Rotation Left 48 Rotation Right 57 Lateral Flexion Left 20 Lateral Flexion Right 28 ROM Limitations Pain Shoulder Goniometric Range of Motion Shoulder Active Shoulder ROM WFL Yes Testing Position Sitting Elbow/Forearm Range of Motion Elbow/Forearm elif Elbow/Forearm ROM WFL Yes PT-OP-L Special Tests Start: 04/29/19 16:22 Freq: Status: Active Protocol: Document 04/30/19 10:15 SAK (Rec: 04/30/19 15:12 SAK [id number]) Special Tests Neural Special Tests- Upper Body Upper Limb Tension Test Test Results positive left PT-OP-M Strength Start: 04/29/19 16:22 Freq: Status: Active Protocol: Document 04/30/19 10:15 SAK (Rec: 04/30/19 15:12 SAK [id number]) Cervical Spine Strength Cervical Spine Manual Muscle Testing Reason Not Measured Orthopedic Precautions,Pain Shoulder Strength Shoulder Manual Muscle Testing elif Comments demonstrates anti-gravity strength, no MMT due to neck pain and orthopedic precautions Hand Bowstring Maker/Pinch Strength Hand Dominance Hand Dominance Right PT-OP-Q Treatments Start: 04/29/19 16:22 Freq: Status: Active Protocol: Document 05/12/19 13:50 DCW (Rec: 05/12/19 14:27 DCW [id number]) Therapeutic Exercises Supine Exercises Serratus Punch Supine Exercise Name Serratus Punch Side bilateral Resistance 1# Sitting Exercises Chest Press Sitting Exercise Name Chest Press Side bilateral Resistance 1# Flexion Sitting Exercise Name Flexion Side bilateral Resistance 2# Reps/Minutes 10x Abduction Sitting Exercise Name Abduction Side bilateral Resistance 2# Reps/Minutes x10 Shoulder Extension Sitting Exercise Name Extension Side bilateral Resistance Lv 1 L, Lv 2 R Equipment Used T-band Reps/Minutes 10x Rows Sitting Exercise Name Rows Side bilateral Resistance Lv 2 Equipment Used T-band Reps/Minutes x15 Manual Therapy Treatment Soft Tissue Mobilization Upper Trap Body Location B Upper Trap, c/s Mobilization Type Strumming,Sustained Pressure, Trigger Point Release Intensity/Depth Moderate Body Position Hooklying PT-OP-R Modalities Start: 04/29/19 16:22 Freq: Status: Active Protocol: Document 05/12/19 13:50 DCW (Rec: 05/12/19 14:27 DCW [id number]) Electric Stimulation Electric Stimulation Interferential Current (IFC) Body Location Upper Trap, c/s Duration (Minutes) 15 Patient Position Sitting Combined With Heat/Cold Cold Pack PT-OP-S Aquatic Treatment Start: 04/29/19 16:22 Freq: Status: Active Protocol: Document 05/15/19 08:40 SAK (Rec: 05/15/19 08:51 SAK [id number]) Aquatics Treatment Pool Entry/Exit Pool Entry/Exit Method Lift Assistance Minimal Assistance Water Walking Forwards Water Level [place] Level of Assistance Verbal Cues Comments no flotation needed, patient at neck level in deep water squats Water Level Chest Level Level of Assistance Verbal Cues Comments at wall march with alternating UE's Water Level Chest Level Level of Assistance Verbal Cues sideways with shoulder ab/ad Water Level Chest Level Level of Assistance Verbal Cues backwards with reverse breastroke UE's Water Level Chest Level Level of Assistance Verbal Cues forward with breastroke UE' Water Level Chest Level Level of Assistance Verbal Cues Lower Extremity Exercises knee flex/ext Body Position Standing Water Level Chest Level Reps/Duration 10x hip flex/ext Body Position Standing Water Level Chest Level Comments back against wall (corner to allow UE support) hip ab/ad Body Position Standing Reps/Duration 10x Comments elif UE support Upper Extremity Exercises shoulder circles Body Position Standing Water Level Chest Level Reps/Duration 10x ea CW, CCW shoulder hor ab/ad Body Position Standing Water Level Chest Level Reps/Duration 15x Comments back against wall, reach toward wall (more difficult on left) Spinal Exercises postural isometric Body Position Standing Water Level Chest Level Reps/Duration 3x Comments against pool wall PT-OP-T Assessment and Plan Start: 04/29/19 16:22 Freq: Status: Active Protocol: Document 05/14/19 11:45 [facility] (Rec: 05/15/19 08:51 [facility] [id number]) Physical Therapy Assessment Impairments Impairments Activity Tolerance,Pain, Posture Goals pain Impairment pain Short Term Goal (STG) Decrease pain to no greater than 5/10 STG Duration 04/30/19 Penitentiary Goal (LTG) Decrease pain to no greater than 3/10 with all usual activities. LTG Duration 07/29/19 posture Impairment posture Short Term Goal (STG) Instruct in neutral postural alignment and HEP for postural correction and spinal stabilization STG Duration 04/30/19 Product Control And Logistics Analyst Goal (LTG) Patient to be independent with HEP and demonstrate improved postural awareness and alignment at rest and with functional activities LTG Duration 07/29/19 One Impairment activity tolerance Short Term Goal (STG) Improve neck disability index score no greater than 40% STG Duration 04/30/19 Penitentiary Goal (LTG) Improve neck disability index score to no greater than 25% to allow her to tolerate her usual activities LTG Duration 07/29/19 Assessment Summary Assessment Good tolerance for gentle aquatic exercises today without c/o UE tingling left hand. Feel aquatic PT will be highly beneficial for this patient. Physical Therapy Plan Frequency and Duration Frequency of Treatment 2x/Week Duration of Treatment 12 wks Plan of Care Start Date 04/30/19 Plan of Care End Date 07/29/19 Therapeutic Interventions Therapeutic Interventions Aquatic Therapy,Home Exercise Program,Neuromuscular Re- education,Patient/Caregiver Education,Self-Care/Home Management,Soft Tissue Mobilization,Taping, Therapeutic Activities, Therapeutic Exercises Modalities Cold Pack/Ice Massage,Electric Stimulation,Hot Packs Next Visit Focus/Plan Next Note Type Treatment Note Next Visit Plan Combination aquatic and land- based PT to continue to address patient goals.
--- NOTE | 2019-05-19 14:54 | PT.OTN ---
Current Diagnoses Other cervical disc degeneration, unspecified cervical region (05/19/19) Abnormal posture (05/19/19) Weakness (05/19/19) Physical Therapy Treatment Note PT-OP-A Visit Information Start: 04/29/19 16:22 Freq: Status: Active Protocol: Document 05/19/19 14:49 SAK (Rec: 05/19/19 14:54 SAK [id number]) Out-Patient Physical Therapy Visit Information Visit Information Visit Type Aquatic Treatment Note Visit Start Time 10:15 Visit Stop Time 11:00 Total Visit Minutes 45 Visit Number 6 Number of TRANSPORTATION ATTENDANT Visits 0 Evaluation Information Evaluation Date 04/30/19 PT-OP-B Current Condition Start: 04/29/19 16:22 Freq: Status: Active Protocol: Document 04/30/19 10:15 SAK (Rec: 04/30/19 15:12 SAK [id number]) Current Condition History of Current Condition Onset Date 11/13/18 Current Complaints disabling neck pain, occasional left hand numbness History of Current Condition Patient underwent cervical spine surgery including discectomy and fusion C6-C7 per patient; no surgical report available. Has had PT in inpatient rehab then home health, being discharged from home health PT 1 month ago. Was working primarily on gait, balance, did some UE ex. No treatment focused specifically on her neck. Patient reports she spends all day out of bed , doesn't have chair that has neck or head support, spends a lot of time on the computer. States she is unaware of her posture. Reports last x-ray showed bone growth and healing wasn't occuring around her fusion Future Testing and Treatments Planned Having x-ray tomorrow at Treatment Goals Patient/Caregiver Goals Decrease pain, improve activity tolerance. 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 PT-OP-F Manual Assessment Start: 04/29/19 16:22 Freq: Status: Active Protocol: Document 04/30/19 10:15 SAK (Rec: 04/30/19 15:12 [facility] [id number]) Manual Assessments Joint Mobility Assessment Joint Mobility Assessment not assessed due to surgical procedure, plan for repeat x- ray tomorrow PT-OP-G Mobility & Gait Start: 04/29/19 16:22 Freq: Status: Active Protocol: Document 04/30/19 10:15 SAK (Rec: 04/30/19 15:12 [facility] [id number]) OP Gait Assessment Gait Gait Assistance Required: Standby Assistance Assistive Devices Assistive Device Front Wheeled Walker Gait Deviations General Gait Pattern Decreased Stride Length, Decreased Feet Clearance, Flexed Trunk Factors Limiting Gait Function Factors Limiting Gait Function Decreased Activity Tolerance, Pain Comments Gait Comments forward head, rounded shoulders PT-OP-H Neuro Start: 04/29/19 16:22 Freq: Status: Active Protocol: Document 04/30/19 10:15 SAK (Rec: 04/30/19 15:12 [facility] [id number]) Sensation Evaluation Gross Sensation Sensation Description Paresthesia Dermatome Impairments C5,C6,C7 PT-OP-J Posture/Palpation/Skin Start: 04/29/19 16:22 Freq: Status: Active Protocol: Document 04/30/19 10:15 SAK (Rec: 04/30/19 15:12 [facility] [id number]) Posture Evaluation Position Sitting Head/C-Spine Posture Forward Head T-Spine Posture Increased Kyphosis Shoulder Posture (L) Rounded,(R) Rounded Scapula Posture (L) Protracted,(R) Protracted Arm Posture (L) Internally Rotated,(R) Internally Rotated Palpation Assessment Location cervical spine Palpation Findings Tenderness Palpation Details tenderness with minimal palpation. Increased soft tissue tightness cervical spine bilaterally with poor tolerance for palpation, difficult to palpate bony prominences. PT-OP-K Range of Motion Start: 04/29/19 16:22 Freq: Status: Active Protocol: Document 04/30/19 10:15 SAK (Rec: 04/30/19 15:12 [facility] [id number]) Cervical Spine Range of Motion Cervical Spine Active Testing Position Sitting Flexion 60 Extension 10 Rotation Left 48 Rotation Right 57 Lateral Flexion Left 20 Lateral Flexion Right 28 ROM Limitations Pain Shoulder Goniometric Range of Motion Shoulder Active Shoulder ROM WFL Yes Testing Position Sitting Elbow/Forearm Range of Motion Elbow/Forearm elif Elbow/Forearm ROM WFL Yes PT-OP-L Special Tests Start: 04/29/19 16:22 Freq: Status: Active Protocol: Document 04/30/19 10:15 SAK (Rec: 04/30/19 15:12 SAK [id number]) Special Tests Neural Special Tests- Upper Body Upper Limb Tension Test Test Results positive left PT-OP-M Strength Start: 04/29/19 16:22 Freq: Status: Active Protocol: Document 04/30/19 10:15 SAK (Rec: 04/30/19 15:12 SAK [id number]) Cervical Spine Strength Cervical Spine Manual Muscle Testing Reason Not Measured Orthopedic Precautions,Pain Shoulder Strength Shoulder Manual Muscle Testing elif Comments demonstrates anti-gravity strength, no MMT due to neck pain and orthopedic precautions Hand Dietary Internship/Pinch Strength Hand Dominance Hand Dominance Right PT-OP-Q Treatments Start: 04/29/19 16:22 Freq: Status: Active Protocol: Document 05/12/19 13:50 DCW (Rec: 05/12/19 14:27 DCW [id number]) Therapeutic Exercises Supine Exercises Serratus Punch Supine Exercise Name Serratus Punch Side bilateral Resistance 1# Sitting Exercises Chest Press Sitting Exercise Name Chest Press Side bilateral Resistance 1# Flexion Sitting Exercise Name Flexion Side bilateral Resistance 2# Reps/Minutes 10x Abduction Sitting Exercise Name Abduction Side bilateral Resistance 2# Reps/Minutes x10 Shoulder Extension Sitting Exercise Name Extension Side bilateral Resistance Lv 1 L, Lv 2 R Equipment Used T-band Reps/Minutes 10x Rows Sitting Exercise Name Rows Side bilateral Resistance Lv 2 Equipment Used T-band Reps/Minutes x15 Manual Therapy Treatment Soft Tissue Mobilization Upper Trap Body Location B Upper Trap, c/s Mobilization Type Strumming,Sustained Pressure, Trigger Point Release Intensity/Depth Moderate Body Position Hooklying PT-OP-R Modalities Start: 04/29/19 16:22 Freq: Status: Active Protocol: Document 05/12/19 13:50 DCW (Rec: 05/12/19 14:27 DCW [id number]) Electric Stimulation Electric Stimulation Interferential Current (IFC) Body Location Upper Trap, c/s Duration (Minutes) 15 Patient Position Sitting Combined With Heat/Cold Cold Pack PT-OP-S Aquatic Treatment Start: 04/29/19 16:22 Freq: Status: Active Protocol: Document 05/19/19 14:49 [facility] (Rec: 05/19/19 14:54 [facility] [id number]) Aquatics Treatment Pool Entry/Exit Pool Entry/Exit Method Lift Assistance Minimal Assistance Water Walking Forwards Water Level [place] Level of Assistance Verbal Cues Comments no flotation needed, patient at neck level in deep water squats Water Level Chest Level Level of Assistance Verbal Cues Comments at wall march with alternating UE's Water Level Chest Level Level of Assistance Verbal Cues sideways with shoulder ab/ad Water Level Chest Level Level of Assistance Verbal Cues backwards with reverse breastroke UE's Water Level Chest Level Level of Assistance Verbal Cues forward with breastroke UE' Water Level Chest Level Level of Assistance Verbal Cues Lower Extremity Exercises hip rotation Body Position Standing Reps/Duration 10x Comments unil UE support knee flex/ext Body Position Standing Water Level Chest Level Reps/Duration 10x hip flex/ext Body Position Standing Water Level Chest Level Comments back against wall (corner to allow UE support) hip ab/ad Body Position Standing Reps/Duration 10x Comments elif UE support Upper Extremity Exercises UE pull downs Body Position Standing Equipment small barbells Reps/Duration 10x shoulder rolls Reps/Duration 10x shoulder circles Body Position Standing Water Level Chest Level Reps/Duration 10x ea CW, CCW shoulder hor ab/ad Body Position Standing Water Level Chest Level Reps/Duration 15x Comments back against wall, reach toward wall (more difficult on left) PT-OP-T Assessment and Plan Start: 04/29/19 16:22 Freq: Status: Active Protocol: Document 05/19/19 14:49 [facility] (Rec: 05/19/19 14:54 [facility] [id number]) Physical Therapy Assessment Impairments Impairments Activity Tolerance,Pain, Posture Goals pain Impairment pain Short Term Goal (STG) Decrease pain to no greater than 5/10 STG Duration 04/30/19 Stenotype Machine Operator Goal (LTG) Decrease pain to no greater than 3/10 with all usual activities. LTG Duration 07/29/19 posture Impairment posture Short Term Goal (STG) Instruct in neutral postural alignment and HEP for postural correction and spinal stabilization STG Duration 04/30/19 Group Home Goal (LTG) Patient to be independent with HEP and demonstrate improved postural awareness and alignment at rest and with functional activities LTG Duration 07/29/19 One Impairment activity tolerance Short Term Goal (STG) Improve neck disability index score no greater than 40% STG Duration 04/30/19 Group Home Goal (LTG) Improve neck disability index score to no greater than 25% to allow her to tolerate her usual activities LTG Duration 07/29/19 Assessment Summary Assessment Patient demonstrated good tolerance for aquatic therapy, able to add UE pull downs. Mod cues for postural alignment and core stab. Physical Therapy Plan Frequency and Duration Frequency of Treatment 2x/Week Duration of Treatment 12 wks Plan of Care Start Date 04/30/19 Plan of Care End Date 07/29/19 Therapeutic Interventions Therapeutic Interventions Aquatic Therapy,Home Exercise Program,Neuromuscular Re- education,Patient/Caregiver Education,Self-Care/Home Management,Soft Tissue Mobilization,Taping, Therapeutic Activities, Therapeutic Exercises Modalities Cold Pack/Ice Massage,Electric Stimulation,Hot Packs Next Visit Focus/Plan Next Note Type Treatment Note Next Visit Plan Continue PT combination aquatic and land-based PT per POC.
--- NOTE | 2019-05-22 16:13 | PT.OTN ---
Current Diagnoses Other cervical disc degeneration, unspecified cervical region (05/22/19) Abnormal posture (05/22/19) Weakness (05/22/19) Physical Therapy Treatment Note PT-OP-A Visit Information Start: 04/29/19 16:22 Freq: Status: Active Protocol: Document 05/22/19 16:00 GGD (Rec: 05/22/19 16:03 GGD [id number]) Out-Patient Physical Therapy Visit Information Visit Information Visit Type Treatment Note Visit Start Time 14:30 Visit Stop Time 15:20 Total Visit Minutes 50 Visit Number 7 Number of DOUBLING MACHINE OPERATOR Visits 1 PT-OP-B Current Condition Start: 04/29/19 16:22 Freq: Status: Active Protocol: Document 04/30/19 10:15 SAK (Rec: 04/30/19 15:12 SAK [id number]) Current Condition History of Current Condition Onset Date 11/13/18 Current Complaints disabling neck pain, occasional left hand numbness History of Current Condition Patient underwent cervical spine surgery including discectomy and fusion C6-C7 per patient; no surgical report available. Has had PT in inpatient rehab then home health, being discharged from home health PT 1 month ago. Was working primarily on gait, balance, did some UE ex. No treatment focused specifically on her neck. Patient reports she spends all day out of bed , doesn't have chair that has neck or head support, spends a lot of time on the computer. States she is unaware of her posture. Reports last x-ray showed bone growth and healing wasn't occuring around her fusion Future Testing and Treatments Planned Having x-ray tomorrow at Treatment Goals Patient/Caregiver Goals Decrease pain, improve activity tolerance. 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 PT-OP-F Manual Assessment Start: 04/29/19 16:22 Freq: Status: Active Protocol: Document 04/30/19 10:15 SAK (Rec: 04/30/19 15:12 [facility] [id number]) Manual Assessments Joint Mobility Assessment Joint Mobility Assessment not assessed due to surgical procedure, plan for repeat x- ray tomorrow PT-OP-G Mobility & Gait Start: 04/29/19 16:22 Freq: Status: Active Protocol: Document 04/30/19 10:15 SAK (Rec: 04/30/19 15:12 [facility] [id number]) OP Gait Assessment Gait Gait Assistance Required: Standby Assistance Assistive Devices Assistive Device Front Wheeled Walker Gait Deviations General Gait Pattern Decreased Stride Length, Decreased Feet Clearance, Flexed Trunk Factors Limiting Gait Function Factors Limiting Gait Function Decreased Activity Tolerance, Pain Comments Gait Comments forward head, rounded shoulders PT-OP-H Neuro Start: 04/29/19 16:22 Freq: Status: Active Protocol: Document 04/30/19 10:15 SAK (Rec: 04/30/19 15:12 [facility] [id number]) Sensation Evaluation Gross Sensation Sensation Description Paresthesia Dermatome Impairments C5,C6,C7 PT-OP-J Posture/Palpation/Skin Start: 04/29/19 16:22 Freq: Status: Active Protocol: Document 04/30/19 10:15 SAK (Rec: 04/30/19 15:12 SAK [id number]) Posture Evaluation Position Sitting Head/C-Spine Posture Forward Head T-Spine Posture Increased Kyphosis Shoulder Posture (L) Rounded,(R) Rounded Scapula Posture (L) Protracted,(R) Protracted Arm Posture (L) Internally Rotated,(R) Internally Rotated Palpation Assessment Location cervical spine Palpation Findings Tenderness Palpation Details tenderness with minimal palpation. Increased soft tissue tightness cervical spine bilaterally with poor tolerance for palpation, difficult to palpate bony prominences. PT-OP-K Range of Motion Start: 04/29/19 16:22 Freq: Status: Active Protocol: Document 04/30/19 10:15 SAK (Rec: 04/30/19 15:12 [facility] [id number]) Cervical Spine Range of Motion Cervical Spine Active Testing Position Sitting Flexion 60 Extension 10 Rotation Left 48 Rotation Right 57 Lateral Flexion Left 20 Lateral Flexion Right 28 ROM Limitations Pain Shoulder Goniometric Range of Motion Shoulder Active Shoulder ROM WFL Yes Testing Position Sitting Elbow/Forearm Range of Motion Elbow/Forearm elif Elbow/Forearm ROM WFL Yes PT-OP-L Special Tests Start: 04/29/19 16:22 Freq: Status: Active Protocol: Document 04/30/19 10:15 SAK (Rec: 04/30/19 15:12 SAK [id number]) Special Tests Neural Special Tests- Upper Body Upper Limb Tension Test Test Results positive left PT-OP-M Strength Start: 04/29/19 16:22 Freq: Status: Active Protocol: Document 04/30/19 10:15 SAK (Rec: 04/30/19 15:12 SAK [id number]) Cervical Spine Strength Cervical Spine Manual Muscle Testing Reason Not Measured Orthopedic Precautions,Pain Shoulder Strength Shoulder Manual Muscle Testing elif Comments demonstrates anti-gravity strength, no MMT due to neck pain and orthopedic precautions Hand Med Care Manager/Pinch Strength Hand Dominance Hand Dominance Right PT-OP-Q Treatments Start: 04/29/19 16:22 Freq: Status: Active Protocol: Document 05/22/19 16:03 GGD (Rec: 05/22/19 16:13 GGD [id number]) Therapeutic Exercises Supine Exercises Serratus Punch Supine Exercise Name Serratus Punch Side bilateral Resistance 1# Sitting Exercises Chest Press Sitting Exercise Name Chest Press Side bilateral Resistance 1# Flexion Sitting Exercise Name Flexion Side bilateral Resistance 2# Reps/Minutes 10x Abduction Sitting Exercise Name Abduction Side bilateral Resistance 2# Reps/Minutes x10 Shoulder Extension Sitting Exercise Name Extension Side bilateral Resistance Lv 1 L, Lv 2 R Equipment Used T-band Reps/Minutes 10x Rows Sitting Exercise Name Rows Side bilateral Resistance Lv 2 Equipment Used T-band Reps/Minutes x15 Manual Therapy Treatment Soft Tissue Mobilization Upper Trap Body Location B Upper Trap, c/s Mobilization Type Strumming,Sustained Pressure, Trigger Point Release Intensity/Depth Moderate Body Position Hooklying PT-OP-R Modalities Start: 04/29/19 16:22 Freq: Status: Active Protocol: Document 05/12/19 13:50 DCW (Rec: 05/12/19 14:27 DC[facility] [id number]) Electric Stimulation Electric Stimulation Interferential Current (IFC) Body Location Upper Trap, c/s Duration (Minutes) 15 Patient Position Sitting Combined With Heat/Cold Cold Pack PT-OP-S Aquatic Treatment Start: 04/29/19 16:22 Freq: Status: Active Protocol: Document 05/19/19 14:49 SAK (Rec: 05/19/19 14:54 SAK [id number]) Aquatics Treatment Pool Entry/Exit Pool Entry/Exit Method Lift Assistance Minimal Assistance Water Walking Forwards Water Level [place] Level of Assistance Verbal Cues Comments no flotation needed, patient at neck level in deep water squats Water Level Chest Level Level of Assistance Verbal Cues Comments at wall march with alternating UE's Water Level Chest Level Level of Assistance Verbal Cues sideways with shoulder ab/ad Water Level Chest Level Level of Assistance Verbal Cues backwards with reverse breastroke UE's Water Level Chest Level Level of Assistance Verbal Cues forward with breastroke UE' Water Level Chest Level Level of Assistance Verbal Cues Lower Extremity Exercises hip rotation Body Position Standing Reps/Duration 10x Comments unil UE support knee flex/ext Body Position Standing Water Level Chest Level Reps/Duration 10x hip flex/ext Body Position Standing Water Level Chest Level Comments back against wall (corner to allow UE support) hip ab/ad Body Position Standing Reps/Duration 10x Comments elif UE support Upper Extremity Exercises UE pull downs Body Position Standing Equipment small barbells Reps/Duration 10x shoulder rolls Reps/Duration 10x shoulder circles Body Position Standing Water Level Chest Level Reps/Duration 10x ea CW, CCW shoulder hor ab/ad Body Position Standing Water Level Chest Level Reps/Duration 15x Comments back against wall, reach toward wall (more difficult on left) PT-OP-T Assessment and Plan Start: 04/29/19 16:22 Freq: Status: Active Protocol: Document 05/22/19 16:03 GGD (Rec: 05/22/19 16:13 GGD [email or web address]) Physical Therapy Assessment Goals pain Impairment pain Short Term Goal (STG) Decrease pain to no greater than 5/10 STG Duration 04/30/19 Penitentiary Goal (LTG) Decrease pain to no greater than 3/10 with all usual activities. LTG Duration 07/29/19 posture Impairment posture Short Term Goal (STG) Instruct in neutral postural alignment and HEP for postural correction and spinal stabilization STG Duration 04/30/19 Serology Technician Goal (LTG) Patient to be independent with HEP and demonstrate improved postural awareness and alignment at rest and with functional activities LTG Duration 07/29/19 One Impairment activity tolerance Short Term Goal (STG) Improve neck disability index score no greater than 40% STG Duration 04/30/19 Penitentiary Goal (LTG) Improve neck disability index score to no greater than 25% to allow her to tolerate her usual activities LTG Duration 07/29/19 Assessment Summary Assessment PT had decrease in pain with manual treatment. She had improve tolerance to strengthening exercise. She did need cues for posture. Physical Therapy Plan Frequency and Duration Frequency of Treatment 2x/Week Duration of Treatment 12 wks Plan of Care Start Date 04/30/19 Plan of Care End Date 07/29/19 Next Visit Focus/Plan Next Note Type Treatment Note Next Visit Plan Continue PT combination aquatic and land-based PT per POC.
--- NOTE | 2019-05-26 17:19 | PT-OP ANOTE ---
patient cancelled her PT visit
--- NOTE | 2019-05-29 16:56 | PT.OTN ---
Current Diagnoses Other cervical disc degeneration, unspecified cervical region (05/29/19) Abnormal posture (05/29/19) Weakness (05/29/19) Physical Therapy Treatment Note PT-OP-A Visit Information Start: 04/29/19 16:22 Freq: Status: Active Protocol: Document 05/29/19 15:15 SAK (Rec: 05/29/19 16:56 SAK [id number]) Out-Patient Physical Therapy Visit Information Visit Information Visit Type Treatment Note Visit Start Time 15:15 Visit Stop Time 16:05 Total Visit Minutes 50 Visit Number 8 Number of HEALTH CENTER ASSISTANT Visits 0 Evaluation Information Evaluation Date 04/30/19 PT-OP-B Current Condition Start: 04/29/19 16:22 Freq: Status: Active Protocol: Document 04/30/19 10:15 SAK (Rec: 04/30/19 15:12 SAK [id number]) Current Condition History of Current Condition Onset Date 11/13/18 Current Complaints disabling neck pain, occasional left hand numbness History of Current Condition Patient underwent cervical spine surgery including discectomy and fusion C6-C7 per patient; no surgical report available. Has had PT in inpatient rehab then home health, being discharged from home health PT 1 month ago. Was working primarily on gait, balance, did some UE ex. No treatment focused specifically on her neck. Patient reports she spends all day out of bed , doesn't have chair that has neck or head support, spends a lot of time on the computer. States she is unaware of her posture. Reports last x-ray showed bone growth and healing wasn't occuring around her fusion Future Testing and Treatments Planned Having x-ray tomorrow at Treatment Goals Patient/Caregiver Goals Decrease pain, improve activity tolerance. 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 States she is feeling less tingling into left UE. PT-OP-F Manual Assessment Start: 04/29/19 16:22 Freq: Status: Active Protocol: Document 04/30/19 10:15 SAK (Rec: 04/30/19 15:12 SAK [id number]) Manual Assessments Joint Mobility Assessment Joint Mobility Assessment not assessed due to surgical procedure, plan for repeat x- ray tomorrow PT-OP-G Mobility & Gait Start: 04/29/19 16:22 Freq: Status: Active Protocol: Document 04/30/19 10:15 SAK (Rec: 04/30/19 15:12 SAK [id number]) OP Gait Assessment Gait Gait Assistance Required: Standby Assistance Assistive Devices Assistive Device Front Wheeled Walker Gait Deviations General Gait Pattern Decreased Stride Length, Decreased Feet Clearance, Flexed Trunk Factors Limiting Gait Function Factors Limiting Gait Function Decreased Activity Tolerance, Pain Comments Gait Comments forward head, rounded shoulders PT-OP-H Neuro Start: 04/29/19 16:22 Freq: Status: Active Protocol: Document 04/30/19 10:15 SAK (Rec: 04/30/19 15:12 SAK [id number]) Sensation Evaluation Gross Sensation Sensation Description Paresthesia Dermatome Impairments C5,C6,C7 PT-OP-J Posture/Palpation/Skin Start: 04/29/19 16:22 Freq: Status: Active Protocol: Document 04/30/19 10:15 SAK (Rec: 04/30/19 15:12 [facility] [id number]) Posture Evaluation Position Sitting Head/C-Spine Posture Forward Head T-Spine Posture Increased Kyphosis Shoulder Posture (L) Rounded,(R) Rounded Scapula Posture (L) Protracted,(R) Protracted Arm Posture (L) Internally Rotated,(R) Internally Rotated Palpation Assessment Location cervical spine Palpation Findings Tenderness Palpation Details tenderness with minimal palpation. Increased soft tissue tightness cervical spine bilaterally with poor tolerance for palpation, difficult to palpate bony prominences. PT-OP-K Range of Motion Start: 04/29/19 16:22 Freq: Status: Active Protocol: Document 04/30/19 10:15 SAK (Rec: 04/30/19 15:12 SAK [id number]) Cervical Spine Range of Motion Cervical Spine Active Testing Position Sitting Flexion 60 Extension 10 Rotation Left 48 Rotation Right 57 Lateral Flexion Left 20 Lateral Flexion Right 28 ROM Limitations Pain Shoulder Goniometric Range of Motion Shoulder Active Shoulder ROM WFL Yes Testing Position Sitting Elbow/Forearm Range of Motion Elbow/Forearm elif Elbow/Forearm ROM WFL Yes PT-OP-L Special Tests Start: 04/29/19 16:22 Freq: Status: Active Protocol: Document 04/30/19 10:15 SAK (Rec: 04/30/19 15:12 [facility] [id number]) Special Tests Neural Special Tests- Upper Body Upper Limb Tension Test Test Results positive left PT-OP-M Strength Start: 04/29/19 16:22 Freq: Status: Active Protocol: Document 04/30/19 10:15 SAK (Rec: 04/30/19 15:12 SAK [id number]) Cervical Spine Strength Cervical Spine Manual Muscle Testing Reason Not Measured Orthopedic Precautions,Pain Shoulder Strength Shoulder Manual Muscle Testing elif Comments demonstrates anti-gravity strength, no MMT due to neck pain and orthopedic precautions Hand Assistant County Attorney/Pinch Strength Hand Dominance Hand Dominance Right PT-OP-Q Treatments Start: 04/29/19 16:22 Freq: Status: Active Protocol: Document 05/29/19 15:15 [facility] (Rec: 05/29/19 16:56 [facility] [id number]) Therapeutic Exercises Supine Exercises shoulder flex Resistance 1# Reps/Minutes 10x chest press Resistance 1# Reps/Minutes 10x Horizontal Adduction Supine Exercise Name Horizontal ab/add Side bilateral Resistance 1# Reps/Minutes 10x Serratus Punch Supine Exercise Name Serratus Punch Side bilateral Resistance 1# Sitting Exercises Chest Press Sitting Exercise Name Chest Press Side bilateral Resistance 1# Flexion Sitting Exercise Name Flexion Side bilateral Resistance 2# Reps/Minutes 10x Abduction Sitting Exercise Name Abduction Side bilateral Resistance 2# Reps/Minutes x10 Shoulder Extension Sitting Exercise Name Extension Side bilateral Resistance Lv 1 L, Lv 2 R Equipment Used T-band Reps/Minutes 10x Rows Sitting Exercise Name Rows Side bilateral Resistance Lv 2 Equipment Used T-band Reps/Minutes x15 Manual Therapy Treatment Soft Tissue Mobilization Upper Trap Body Location B Upper Trap, c/s Mobilization Type Strumming,Sustained Pressure, Trigger Point Release Intensity/Depth Moderate Body Position Hooklying PT-OP-R Modalities Start: 04/29/19 16:22 Freq: Status: Active Protocol: Document 05/29/19 15:15 SAK (Rec: 05/29/19 16:56 [facility] [id number]) Electric Stimulation Electric Stimulation Interferential Current (IFC) Body Location Upper Trap, c/s Duration (Minutes) 15 Patient Position Supine Combined With Heat/Cold Cold Pack PT-OP-S Aquatic Treatment Start: 04/29/19 16:22 Freq: Status: Active Protocol: Document 05/19/19 14:49 [facility] (Rec: 05/19/19 14:54 [facility] [id number]) Aquatics Treatment Pool Entry/Exit Pool Entry/Exit Method Lift Assistance Minimal Assistance Water Walking Forwards Water Level [place] Level of Assistance Verbal Cues Comments no flotation needed, patient at neck level in deep water squats Water Level Chest Level Level of Assistance Verbal Cues Comments at wall march with alternating UE's Water Level Chest Level Level of Assistance Verbal Cues sideways with shoulder ab/ad Water Level Chest Level Level of Assistance Verbal Cues backwards with reverse breastroke UE's Water Level Chest Level Level of Assistance Verbal Cues forward with breastroke UE' Water Level Chest Level Level of Assistance Verbal Cues Lower Extremity Exercises hip rotation Body Position Standing Reps/Duration 10x Comments unil UE support knee flex/ext Body Position Standing Water Level Chest Level Reps/Duration 10x hip flex/ext Body Position Standing Water Level Chest Level Comments back against wall (corner to allow UE support) hip ab/ad Body Position Standing Reps/Duration 10x Comments elif UE support Upper Extremity Exercises UE pull downs Body Position Standing Equipment small barbells Reps/Duration 10x shoulder rolls Reps/Duration 10x shoulder circles Body Position Standing Water Level Chest Level Reps/Duration 10x ea CW, CCW shoulder hor ab/ad Body Position Standing Water Level Chest Level Reps/Duration 15x Comments back against wall, reach toward wall (more difficult on left) PT-OP-T Assessment and Plan Start: 04/29/19 16:22 Freq: Status: Active Protocol: Document 05/29/19 15:15 [facility] (Rec: 05/29/19 16:56 [facility] [id number]) Physical Therapy Assessment Goals pain Impairment pain Short Term Goal (STG) Decrease pain to no greater than 5/10 STG Duration 04/30/19 Program Management Manager Goal (LTG) Decrease pain to no greater than 3/10 with all usual activities. LTG Duration 07/29/19 posture Impairment posture Short Term Goal (STG) Instruct in neutral postural alignment and HEP for postural correction and spinal stabilization STG Duration 04/30/19 Residential Goal (LTG) Patient to be independent with HEP and demonstrate improved postural awareness and alignment at rest and with functional activities LTG Duration 07/29/19 One Impairment activity tolerance Short Term Goal (STG) Improve neck disability index score no greater than 40% STG Duration 04/30/19 Residential Goal (LTG) Improve neck disability index score to no greater than 25% to allow her to tolerate her usual activities LTG Duration 07/29/19 Assessment Summary Assessment Decreasing numbness left hand, improving neck ROM and decreasing pain. Physical Therapy Plan Frequency and Duration Frequency of Treatment 2x/Week Duration of Treatment 12 wks Plan of Care Start Date 04/30/19 Plan of Care End Date 07/29/19 Next Visit Focus/Plan Next Note Type Treatment Note Next Visit Plan Continue PT combination aquatic and land-based PT per POC.
--- NOTE | 2019-06-02 14:35 | PT.OTN ---
Current Diagnoses Other cervical disc degeneration, unspecified cervical region (06/02/19) Abnormal posture (06/02/19) Weakness (06/02/19) Physical Therapy Treatment Note PT-OP-A Visit Information Start: 04/29/19 16:22 Freq: Status: Active Protocol: Document 06/02/19 14:20 LJ (Rec: 06/02/19 14:34 LJ [id number]) Out-Patient Physical Therapy Visit Information Visit Information Visit Type Aquatic Treatment Note Visit Start Time 10:15 Visit Stop Time 11:00 Total Visit Minutes 45 Visit Number 9 Number of ENTRY LEVEL ADMINISTRATIVE ASSISTANT Visits 1 PT-OP-B Current Condition Start: 04/29/19 16:22 Freq: Status: Active Protocol: Document 04/30/19 10:15 SAK (Rec: 04/30/19 15:12 SAK [id number]) Current Condition History of Current Condition Onset Date 11/13/18 Current Complaints disabling neck pain, occasional left hand numbness History of Current Condition Patient underwent cervical spine surgery including discectomy and fusion C6-C7 per patient; no surgical report available. Has had PT in inpatient rehab then home health, being discharged from home health PT 1 month ago. Was working primarily on gait, balance, did some UE ex. No treatment focused specifically on her neck. Patient reports she spends all day out of bed , doesn't have chair that has neck or head support, spends a lot of time on the computer. States she is unaware of her posture. Reports last x-ray showed bone growth and healing wasn't occuring around her fusion Future Testing and Treatments Planned Having x-ray tomorrow at Treatment Goals Patient/Caregiver Goals Decrease pain, improve activity tolerance. 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 PT-OP-F Manual Assessment Start: 04/29/19 16:22 Freq: Status: Active Protocol: Document 04/30/19 10:15 SAK (Rec: 04/30/19 15:12 [facility] [id number]) Manual Assessments Joint Mobility Assessment Joint Mobility Assessment not assessed due to surgical procedure, plan for repeat x- ray tomorrow PT-OP-G Mobility & Gait Start: 04/29/19 16:22 Freq: Status: Active Protocol: Document 04/30/19 10:15 SAK (Rec: 04/30/19 15:12 [facility] [id number]) OP Gait Assessment Gait Gait Assistance Required: Standby Assistance Assistive Devices Assistive Device Front Wheeled Walker Gait Deviations General Gait Pattern Decreased Stride Length, Decreased Feet Clearance, Flexed Trunk Factors Limiting Gait Function Factors Limiting Gait Function Decreased Activity Tolerance, Pain Comments Gait Comments forward head, rounded shoulders PT-OP-H Neuro Start: 04/29/19 16:22 Freq: Status: Active Protocol: Document 04/30/19 10:15 SAK (Rec: 04/30/19 15:12 [facility] [id number]) Sensation Evaluation Gross Sensation Sensation Description Paresthesia Dermatome Impairments C5,C6,C7 PT-OP-J Posture/Palpation/Skin Start: 04/29/19 16:22 Freq: Status: Active Protocol: Document 04/30/19 10:15 SAK (Rec: 04/30/19 15:12 [facility] [id number]) Posture Evaluation Position Sitting Head/C-Spine Posture Forward Head T-Spine Posture Increased Kyphosis Shoulder Posture (L) Rounded,(R) Rounded Scapula Posture (L) Protracted,(R) Protracted Arm Posture (L) Internally Rotated,(R) Internally Rotated Palpation Assessment Location cervical spine Palpation Findings Tenderness Palpation Details tenderness with minimal palpation. Increased soft tissue tightness cervical spine bilaterally with poor tolerance for palpation, difficult to palpate bony prominences. PT-OP-K Range of Motion Start: 04/29/19 16:22 Freq: Status: Active Protocol: Document 04/30/19 10:15 SAK (Rec: 04/30/19 15:12 [facility] [id number]) Cervical Spine Range of Motion Cervical Spine Active Testing Position Sitting Flexion 60 Extension 10 Rotation Left 48 Rotation Right 57 Lateral Flexion Left 20 Lateral Flexion Right 28 ROM Limitations Pain Shoulder Goniometric Range of Motion Shoulder Active Shoulder ROM WFL Yes Testing Position Sitting Elbow/Forearm Range of Motion Elbow/Forearm elif Elbow/Forearm ROM WFL Yes PT-OP-L Special Tests Start: 04/29/19 16:22 Freq: Status: Active Protocol: Document 04/30/19 10:15 SAK (Rec: 04/30/19 15:12 [facility] [id number]) Special Tests Neural Special Tests- Upper Body Upper Limb Tension Test Test Results positive left PT-OP-M Strength Start: 04/29/19 16:22 Freq: Status: Active Protocol: Document 04/30/19 10:15 SAK (Rec: 04/30/19 15:12 [facility] [id number]) Cervical Spine Strength Cervical Spine Manual Muscle Testing Reason Not Measured Orthopedic Precautions,Pain Shoulder Strength Shoulder Manual Muscle Testing elif Comments demonstrates anti-gravity strength, no MMT due to neck pain and orthopedic precautions Hand Hotel Staff Member/Pinch Strength Hand Dominance Hand Dominance Right PT-OP-Q Treatments Start: 04/29/19 16:22 Freq: Status: Active Protocol: Document 05/29/19 15:15 [facility] (Rec: 05/29/19 16:56 [facility] [id number]) Therapeutic Exercises Supine Exercises shoulder flex Resistance 1# Reps/Minutes 10x chest press Resistance 1# Reps/Minutes 10x Horizontal Adduction Supine Exercise Name Horizontal ab/add Side bilateral Resistance 1# Reps/Minutes 10x Serratus Punch Supine Exercise Name Serratus Punch Side bilateral Resistance 1# Sitting Exercises Chest Press Sitting Exercise Name Chest Press Side bilateral Resistance 1# Flexion Sitting Exercise Name Flexion Side bilateral Resistance 2# Reps/Minutes 10x Abduction Sitting Exercise Name Abduction Side bilateral Resistance 2# Reps/Minutes x10 Shoulder Extension Sitting Exercise Name Extension Side bilateral Resistance Lv 1 L, Lv 2 R Equipment Used T-band Reps/Minutes 10x Rows Sitting Exercise Name Rows Side bilateral Resistance Lv 2 Equipment Used T-band Reps/Minutes x15 Manual Therapy Treatment Soft Tissue Mobilization Upper Trap Body Location B Upper Trap, c/s Mobilization Type Strumming,Sustained Pressure, Trigger Point Release Intensity/Depth Moderate Body Position Hooklying PT-OP-R Modalities Start: 04/29/19 16:22 Freq: Status: Active Protocol: Document 05/29/19 15:15 [facility] (Rec: 05/29/19 16:56 [facility] [id number]) Electric Stimulation Electric Stimulation Interferential Current (IFC) Body Location Upper Trap, c/s Duration (Minutes) 15 Patient Position Supine Combined With Heat/Cold Cold Pack PT-OP-S Aquatic Treatment Start: 04/29/19 16:22 Freq: Status: Active Protocol: Document 06/02/19 14:20 MICAH (Rec: 06/02/19 14:34 LJ [id number]) Aquatics Treatment Pool Entry/Exit Pool Entry/Exit Method Lift Assistance Contact Guard Assistance Water Walking Forwards Water Level [place] Walking Equipment Ankle Weight- 2.5# Level of Assistance Verbal Cues squats Water Level Chest Level Walking Equipment Ankle Weight- 2.5# Level of Assistance Verbal Cues Comments at wall november with alternating UE's Water Level Chest Level Walking Equipment Ankle Weight- 2.5# Level of Assistance Verbal Cues sideways with shoulder ab/ad Water Level Chest Level Walking Equipment Ankle Weight- 2.5# Level of Assistance Verbal Cues backwards with reverse breastroke UE's Water Level Chest Level Walking Equipment Ankle Weight- 2.5# Level of Assistance Verbal Cues forward with breastroke UE' Water Level Chest Level Walking Equipment Ankle Weight- 2.5# Level of Assistance Verbal Cues Lower Extremity Exercises HS curls Body Position Standing Water Level Chest Level Equipment Ankle Weight- 2.5# Reps/Duration 12x bilat Comments uni UE support hip rotation Body Position Standing Reps/Duration 10x Comments unil UE support knee flex/ext Body Position Standing Water Level Chest Level Equipment Ankle Weight- 2.5# Reps/Duration 12x Comments cues for posture hip flex/ext Body Position Standing Water Level Chest Level Equipment Ankle Weight- 2.5# Reps/Duration 12x bilat hip ab/ad Body Position Standing Water Level Chest Level Equipment Ankle Weight- 2.5# Reps/Duration 10x Comments uni UE support Upper Extremity Exercises UE pull downs Body Position Standing Equipment small barbells Reps/Duration 10x Comments cues for core stabilization shoulder rolls Reps/Duration 10x shoulder circles Body Position Standing Water Level Chest Level Reps/Duration 10x ea CW, CCW shoulder hor ab/ad Body Position Standing Water Level Chest Level Reps/Duration 15x Spinal Exercises posterior pelvic tilts Body Position Standing Water Level Chest Level Reps/Duration 5x Comments against pool wall postural isometric Body Position Standing Water Level Chest Level Reps/Duration 3x Comments against pool wall PT-OP-T Assessment and Plan Start: 04/29/19 16:22 Freq: Status: Active Protocol: Document 06/02/19 14:20 LJ (Rec: 06/02/19 14:34 LJ [id number]) Physical Therapy Assessment Goals pain Impairment pain Short Term Goal (STG) Decrease pain to no greater than 5/10 STG Duration 04/30/19 Lapidarist Goal (LTG) Decrease pain to no greater than 3/10 with all usual activities. LTG Duration 07/29/19 posture Impairment posture Short Term Goal (STG) Instruct in neutral postural alignment and HEP for postural correction and spinal stabilization STG Duration 04/30/19 Lapidarist Goal (LTG) Patient to be independent with HEP and demonstrate improved postural awareness and alignment at rest and with functional activities LTG Duration 07/29/19 One Impairment activity tolerance Short Term Goal (STG) Improve neck disability index score no greater than 40% STG Duration 04/30/19 Mcc Goal (LTG) Improve neck disability index score to no greater than 25% to allow her to tolerate her usual activities LTG Duration 07/29/19 Assessment Summary Assessment Pt moving with generally slow movements tolerating exercises well. Shows good posture with walking exercises but needed cues for upright posture with exercises against the wall. Physical Therapy Plan Frequency and Duration Frequency of Treatment 2x/Week Duration of Treatment 12 wks Plan of Care Start Date 04/30/19 Plan of Care End Date 07/29/19 Next Visit Focus/Plan Next Note Type Treatment Note Next Visit Plan Continue PT combination aquatic and land-based PT per POC.
--- NOTE | 2019-06-05 13:11 | PT.OTN ---
Current Diagnoses Other cervical disc degeneration, unspecified cervical region (06/05/19) Abnormal posture (06/05/19) Weakness (06/05/19) Physical Therapy Treatment Note PT-OP-A Visit Information Start: 04/29/19 16:22 Freq: Status: Active Protocol: Document 06/02/19 14:20 LJ (Rec: 06/02/19 14:34 LJ [id number]) Out-Patient Physical Therapy Visit Information Visit Information Visit Type Aquatic Treatment Note Visit Start Time 10:15 Visit Stop Time 11:00 Total Visit Minutes 45 Visit Number 9 Number of ESTIMATOR LUMBER Visits 1 PT-OP-B Current Condition Start: 04/29/19 16:22 Freq: Status: Active Protocol: Document 04/30/19 10:15 SAK (Rec: 04/30/19 15:12 SAK [id number]) Current Condition History of Current Condition Onset Date 11/13/18 Current Complaints disabling neck pain, occasional left hand numbness History of Current Condition Patient underwent cervical spine surgery including discectomy and fusion C6-C7 per patient; no surgical report available. Has had PT in inpatient rehab then home health, being discharged from home health PT 1 month ago. Was working primarily on gait, balance, did some UE ex. No treatment focused specifically on her neck. Patient reports she spends all day out of bed , doesn't have chair that has neck or head support, spends a lot of time on the computer. States she is unaware of her posture. Reports last x-ray showed bone growth and healing wasn't occuring around her fusion Future Testing and Treatments Planned Having x-ray tomorrow at Treatment Goals Patient/Caregiver Goals Decrease pain, improve activity tolerance. 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 Her left upper shoulder area is stiff today. Yesterday, she could not use her left arm at all. Yesterday , she had to take an Oxy and that was disappointment. Her pain was better up until . She will have to have a thyroid bx. Patient Reported Progress Worse PT-OP-F Manual Assessment Start: 04/29/19 16:22 Freq: Status: Active Protocol: Document 04/30/19 10:15 SAK (Rec: 04/30/19 15:12 [facility] [id number]) Manual Assessments Joint Mobility Assessment Joint Mobility Assessment not assessed due to surgical procedure, plan for repeat x- ray tomorrow PT-OP-G Mobility & Gait Start: 04/29/19 16:22 Freq: Status: Active Protocol: Document 04/30/19 10:15 SAK (Rec: 04/30/19 15:12 [facility] [id number]) OP Gait Assessment Gait Gait Assistance Required: Standby Assistance Assistive Devices Assistive Device Front Wheeled Walker Gait Deviations General Gait Pattern Decreased Stride Length, Decreased Feet Clearance, Flexed Trunk Factors Limiting Gait Function Factors Limiting Gait Function Decreased Activity Tolerance, Pain Comments Gait Comments forward head, rounded shoulders PT-OP-H Neuro Start: 04/29/19 16:22 Freq: Status: Active Protocol: Document 04/30/19 10:15 SAK (Rec: 04/30/19 15:12 [facility] [id number]) Sensation Evaluation Gross Sensation Sensation Description Paresthesia Dermatome Impairments C5,C6,C7 PT-OP-J Posture/Palpation/Skin Start: 04/29/19 16:22 Freq: Status: Active Protocol: Document 04/30/19 10:15 SAK (Rec: 04/30/19 15:12 [facility] [id number]) Posture Evaluation Position Sitting Head/C-Spine Posture Forward Head T-Spine Posture Increased Kyphosis Shoulder Posture (L) Rounded,(R) Rounded Scapula Posture (L) Protracted,(R) Protracted Arm Posture (L) Internally Rotated,(R) Internally Rotated Palpation Assessment Location cervical spine Palpation Findings Tenderness Palpation Details tenderness with minimal palpation. Increased soft tissue tightness cervical spine bilaterally with poor tolerance for palpation, difficult to palpate bony prominences. PT-OP-K Range of Motion Start: 04/29/19 16:22 Freq: Status: Active Protocol: Document 04/30/19 10:15 SAK (Rec: 04/30/19 15:12 SAK [id number]) Cervical Spine Range of Motion Cervical Spine Active Testing Position Sitting Flexion 60 Extension 10 Rotation Left 48 Rotation Right 57 Lateral Flexion Left 20 Lateral Flexion Right 28 ROM Limitations Pain Shoulder Goniometric Range of Motion Shoulder Active Shoulder ROM WFL Yes Testing Position Sitting Elbow/Forearm Range of Motion Elbow/Forearm elif Elbow/Forearm ROM WFL Yes PT-OP-L Special Tests Start: 04/29/19 16:22 Freq: Status: Active Protocol: Document 04/30/19 10:15 SAK (Rec: 04/30/19 15:12 SAK [id number]) Special Tests Neural Special Tests- Upper Body Upper Limb Tension Test Test Results positive left PT-OP-M Strength Start: 04/29/19 16:22 Freq: Status: Active Protocol: Document 04/30/19 10:15 SAK (Rec: 04/30/19 15:12 SAK [id number]) Cervical Spine Strength Cervical Spine Manual Muscle Testing Reason Not Measured Orthopedic Precautions,Pain Shoulder Strength Shoulder Manual Muscle Testing elif Comments demonstrates anti-gravity strength, no MMT due to neck pain and orthopedic precautions Hand Customer Care Coordinator/Pinch Strength Hand Dominance Hand Dominance Right PT-OP-Q Treatments Start: 04/29/19 16:22 Freq: Status: Active Protocol: Document 06/05/19 12:17 MB (Rec: 06/05/19 13:11 MB [id number]) Manual Therapy Treatment Other Other Manual Treatments Pt supine: positional release left upper traps, Counterstrain positioning. Suboccipital release. Graded II left SC mobs and isometric mob left first rib--all these to improve movement of the left 1st rib, shoulder and upper traps. Pt performs diaphragmatic breathing to improve parasympathetic response. PT-OP-R Modalities Start: 04/29/19 16:22 Freq: Status: Active Protocol: Document 05/29/19 15:20 SAK (Rec: 06/03/19 08:14 SAK [id number]) Electric Stimulation Electric Stimulation Interferential Current (IFC) Body Location Upper Trap, c/s Duration (Minutes) 15 Patient Position Sitting Combined With Heat/Cold Cold Pack PT-OP-S Aquatic Treatment Start: 04/29/19 16:22 Freq: Status: Active Protocol: Document 06/02/19 14:20 LJ (Rec: 06/02/19 14:34 LJ [id number]) Aquatics Treatment Pool Entry/Exit Pool Entry/Exit Method Lift Assistance Contact Guard Assistance Water Walking Forwards Water Level [place] Walking Equipment Ankle Weight- 2.5# Level of Assistance Verbal Cues squats Water Level Chest Level Walking Equipment Ankle Weight- 2.5# Level of Assistance Verbal Cues Comments at wall november with alternating UE's Water Level Chest Level Walking Equipment Ankle Weight- 2.5# Level of Assistance Verbal Cues sideways with shoulder ab/ad Water Level Chest Level Walking Equipment Ankle Weight- 2.5# Level of Assistance Verbal Cues backwards with reverse breastroke UE's Water Level Chest Level Walking Equipment Ankle Weight- 2.5# Level of Assistance Verbal Cues forward with breastroke UE' Water Level Chest Level Walking Equipment Ankle Weight- 2.5# Level of Assistance Verbal Cues Lower Extremity Exercises HS curls Body Position Standing Water Level Chest Level Equipment Ankle Weight- 2.5# Reps/Duration 12x bilat Comments uni UE support hip rotation Body Position Standing Reps/Duration 10x Comments unil UE support knee flex/ext Body Position Standing Water Level Chest Level Equipment Ankle Weight- 2.5# Reps/Duration 12x Comments cues for posture hip flex/ext Body Position Standing Water Level Chest Level Equipment Ankle Weight- 2.5# Reps/Duration 12x bilat hip ab/ad Body Position Standing Water Level Chest Level Equipment Ankle Weight- 2.5# Reps/Duration 10x Comments uni UE support Upper Extremity Exercises UE pull downs Body Position Standing Equipment small barbells Reps/Duration 10x Comments cues for core stabilization shoulder rolls Reps/Duration 10x shoulder circles Body Position Standing Water Level Chest Level Reps/Duration 10x ea CW, CCW shoulder hor ab/ad Body Position Standing Water Level Chest Level Reps/Duration 15x Spinal Exercises posterior pelvic tilts Body Position Standing Water Level Chest Level Reps/Duration 5x Comments against pool wall postural isometric Body Position Standing Water Level Chest Level Reps/Duration 3x Comments against pool wall PT-OP-T Assessment and Plan Start: 04/29/19 16:22 Freq: Status: Active Protocol: Document 06/05/19 12:17 MB (Rec: 06/05/19 13:11 MB [id number]) Physical Therapy Assessment Assessment Summary Assessment Pt requires assist to push w/c today d/t increased left shoulder pain. She tolerates gentle manual work well. Her left shoulder and first rib were very tight and improve with treatment in hook lying with head and cervical support . Consider ongoing manual work , include breathing exercises to facilitate thoracic mobility and diaphragmatic movement. Physical Therapy Plan Frequency and Duration Frequency of Treatment 2x/Week Duration of Treatment 12 wks Plan of Care Start Date 04/30/19 Plan of Care End Date 07/29/19 Next Visit Focus/Plan Next Note Type Treatment Note Next Visit Plan Continue PT combination aquatic and land-based PT per POC. Monitor pt re: yeast infection reports with regard to aquatic therapy. Consider adding breathing exercises and core initiation in hook lying .
--- NOTE | 2019-06-11 16:11 | PT.OTN ---
Current Diagnoses Other cervical disc degeneration, unspecified cervical region (06/11/19) Abnormal posture (06/11/19) Weakness (06/11/19) Physical Therapy Treatment Note PT-OP-A Visit Information Start: 04/29/19 16:22 Freq: Status: Active Protocol: Document 06/11/19 15:15 [facility] (Rec: 06/11/19 16:10 [facility] [id number]) Out-Patient Physical Therapy Visit Information Visit Information Visit Type Treatment Note Visit Start Time 13:15 Visit Stop Time 14:10 Total Visit Minutes 55 Visit Number 11 Number of MEDICAL SCREENER Visits 0 PT-OP-B Current Condition Start: 04/29/19 16:22 Freq: Status: Active Protocol: Document 04/30/19 10:15 SAK (Rec: 04/30/19 15:12 SAK [id number]) Current Condition History of Current Condition Onset Date 11/13/18 Current Complaints disabling neck pain, occasional left hand numbness History of Current Condition Patient underwent cervical spine surgery including discectomy and fusion C6-C7 per patient; no surgical report available. Has had PT in inpatient rehab then home health, being discharged from home health PT 1 month ago. Was working primarily on gait, balance, did some UE ex. No treatment focused specifically on her neck. Patient reports she spends all day out of bed , doesn't have chair that has neck or head support, spends a lot of time on the computer. States she is unaware of her posture. Reports last x-ray showed bone growth and healing wasn't occuring around her fusion Future Testing and Treatments Planned Having x-ray tomorrow at Treatment Goals Patient/Caregiver Goals Decrease pain, improve activity tolerance. 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 Current Functional Impairments (Reported) Functional Limitations- ADL's painful Functional Limitations- Mobility/Gait walks with FWW Functional Limitations- Work/School painful Personal Factors Other Personal Factors That May Effect obesity Therapy/Recovery PT-OP-C Subjective Start: 04/29/19 16:22 Freq: Status: Active Protocol: Document 06/11/19 15:15 [facility] (Rec: 06/11/19 16:10 [facility] [id number]) OP-PT Subjective Patient Comments Patient Comments Pt reports she got a kidney infection so her back has been hurting PT-OP-F Manual Assessment Start: 04/29/19 16:22 Freq: Status: Active Protocol: Document 04/30/19 10:15 [facility]AK (Rec: 04/30/19 15:12 [facility] [id number]) Manual Assessments Joint Mobility Assessment Joint Mobility Assessment not assessed due to surgical procedure, plan for repeat x- ray tomorrow PT-OP-G Mobility & Gait Start: 04/29/19 16:22 Freq: Status: Active Protocol: Document 04/30/19 10:15 SAK (Rec: 04/30/19 15:12 [facility] [id number]) OP Gait Assessment Gait Gait Assistance Required: Standby Assistance Assistive Devices Assistive Device Front Wheeled Walker Gait Deviations General Gait Pattern Decreased Stride Length, Decreased Feet Clearance, Flexed Trunk Factors Limiting Gait Function Factors Limiting Gait Function Decreased Activity Tolerance, Pain Comments Gait Comments forward head, rounded shoulders PT-OP-H Neuro Start: 04/29/19 16:22 Freq: Status: Active Protocol: Document 04/30/19 10:15 SAK (Rec: 04/30/19 15:12 [facility] [id number]) Sensation Evaluation Gross Sensation Sensation Description Paresthesia Dermatome Impairments C5,C6,C7 PT-OP-J Posture/Palpation/Skin Start: 04/29/19 16:22 Freq: Status: Active Protocol: Document 04/30/19 10:15 [facility]AK (Rec: 04/30/19 15:12 [facility] [id number]) Posture Evaluation Position Sitting Head/C-Spine Posture Forward Head T-Spine Posture Increased Kyphosis Shoulder Posture (L) Rounded,(R) Rounded Scapula Posture (L) Protracted,(R) Protracted Arm Posture (L) Internally Rotated,(R) Internally Rotated Palpation Assessment Location cervical spine Palpation Findings Tenderness Palpation Details tenderness with minimal palpation. Increased soft tissue tightness cervical spine bilaterally with poor tolerance for palpation, difficult to palpate bony prominences. PT-OP-K Range of Motion Start: 04/29/19 16:22 Freq: Status: Active Protocol: Document 04/30/19 10:15 SAK (Rec: 04/30/19 15:12 [facility] [id number]) Cervical Spine Range of Motion Cervical Spine Active Testing Position Sitting Flexion 60 Extension 10 Rotation Left 48 Rotation Right 57 Lateral Flexion Left 20 Lateral Flexion Right 28 ROM Limitations Pain Shoulder Goniometric Range of Motion Shoulder Active Shoulder ROM WFL Yes Testing Position Sitting Elbow/Forearm Range of Motion Elbow/Forearm elif Elbow/Forearm ROM WFL Yes PT-OP-L Special Tests Start: 04/29/19 16:22 Freq: Status: Active Protocol: Document 04/30/19 10:15 SAK (Rec: 04/30/19 15:12 [facility] [id number]) Special Tests Neural Special Tests- Upper Body Upper Limb Tension Test Test Results positive left PT-OP-M Strength Start: 04/29/19 16:22 Freq: Status: Active Protocol: Document 04/30/19 10:15 SAK (Rec: 04/30/19 15:12 [facility]AK [id number]) Cervical Spine Strength Cervical Spine Manual Muscle Testing Reason Not Measured Orthopedic Precautions,Pain Shoulder Strength Shoulder Manual Muscle Testing elif Comments demonstrates anti-gravity strength, no MMT due to neck pain and orthopedic precautions Hand Mosaic Tile Maker/Pinch Strength Hand Dominance Hand Dominance Right PT-OP-Q Treatments Start: 04/29/19 16:22 Freq: Status: Active Protocol: Document 06/11/19 15:15 [facility] (Rec: 06/11/19 16:10 [facility] [id number]) Therapeutic Exercises Supine Exercises shoulder flex Side bilateral Equipment Used 1# Reps/Minutes 15 chest press Side bilateral Equipment Used 1# Reps/Minutes 15 Horizontal Adduction Side bilateral Equipment Used 1# Reps/Minutes 15 Serratus Punch Side bilateral Equipment Used 1# Reps/Minutes 15 Sitting Exercises Chest Press Sitting Exercise Name Chest Press Side bilateral Resistance 1# Reps/Minutes 8 Flexion Sitting Exercise Name Flexion Side bilateral Resistance 1# Reps/Minutes 15 Abduction Sitting Exercise Name Abduction Side bilateral Resistance 1# Reps/Minutes 15 Shoulder Extension Sitting Exercise Name Extension Side bilateral Resistance LV 1 Equipment Used T-band Reps/Minutes 15 Rows Sitting Exercise Name Rows Side bilateral Resistance Lv 2 Equipment Used T-band Reps/Minutes x15 Manual Therapy Treatment Soft Tissue Mobilization Upper Trap Body Location UT & LS Mobilization Type Rolling,Strumming Intensity/Depth Moderate Joint Mobilizations 1st rib Joint L Direction caudal glide FM Grade II PT-OP-R Modalities Start: 04/29/19 16:22 Freq: Status: Active Protocol: Document 06/11/19 15:15 [facility] (Rec: 06/11/19 16:10 [facility] [id number]) Electric Stimulation Electric Stimulation Interferential Current (IFC) Body Location UT B Duration (Minutes) 15 Combined With Heat/Cold Cold Pack PT-OP-S Aquatic Treatment Start: 04/29/19 16:22 Freq: Status: Active Protocol: Document 06/02/19 14:20 LJ (Rec: 06/02/19 14:34 LJ [id number]) Aquatics Treatment Pool Entry/Exit Pool Entry/Exit Method Lift Assistance Contact Guard Assistance Water Walking Forwards Water Level [place] Walking Equipment Ankle Weight- 2.5# Level of Assistance Verbal Cues squats Water Level Chest Level Walking Equipment Ankle Weight- 2.5# Level of Assistance Verbal Cues Comments at wall november with alternating UE's Water Level Chest Level Walking Equipment Ankle Weight- 2.5# Level of Assistance Verbal Cues sideways with shoulder ab/ad Water Level Chest Level Walking Equipment Ankle Weight- 2.5# Level of Assistance Verbal Cues backwards with reverse breastroke UE's Water Level Chest Level Walking Equipment Ankle Weight- 2.5# Level of Assistance Verbal Cues forward with breastroke UE' Water Level Chest Level Walking Equipment Ankle Weight- 2.5# Level of Assistance Verbal Cues Lower Extremity Exercises HS curls Body Position Standing Water Level Chest Level Equipment Ankle Weight- 2.5# Reps/Duration 12x bilat Comments uni UE support hip rotation Body Position Standing Reps/Duration 10x Comments unil UE support knee flex/ext Body Position Standing Water Level Chest Level Equipment Ankle Weight- 2.5# Reps/Duration 12x Comments cues for posture hip flex/ext Body Position Standing Water Level Chest Level Equipment Ankle Weight- 2.5# Reps/Duration 12x bilat hip ab/ad Body Position Standing Water Level Chest Level Equipment Ankle Weight- 2.5# Reps/Duration 10x Comments uni UE support Upper Extremity Exercises UE pull downs Body Position Standing Equipment small barbells Reps/Duration 10x Comments cues for core stabilization shoulder rolls Reps/Duration 10x shoulder circles Body Position Standing Water Level Chest Level Reps/Duration 10x ea CW, CCW shoulder hor ab/ad Body Position Standing Water Level Chest Level Reps/Duration 15x Spinal Exercises posterior pelvic tilts Body Position Standing Water Level Chest Level Reps/Duration 5x Comments against pool wall postural isometric Body Position Standing Water Level Chest Level Reps/Duration 3x Comments against pool wall PT-OP-T Assessment and Plan Start: 04/29/19 16:22 Freq: Status: Active Protocol: Document 06/11/19 15:15 [facility] (Rec: 06/11/19 16:10 [facility] [id number]) Physical Therapy Assessment Goals pain Impairment pain Short Term Goal (STG) Decrease pain to no greater than 5/10 STG Duration 04/30/19 Usp Goal (LTG) Decrease pain to no greater than 3/10 with all usual activities. LTG Duration 07/29/19 posture Impairment posture Short Term Goal (STG) Instruct in neutral postural alignment and HEP for postural correction and spinal stabilization STG Duration 04/30/19 Usp Goal (LTG) Patient to be independent with HEP and demonstrate improved postural awareness and alignment at rest and with functional activities LTG Duration 07/29/19 One Impairment activity tolerance Short Term Goal (STG) Improve neck disability index score no greater than 40% STG Duration 04/30/19 Flotation Tender Helper Goal (LTG) Improve neck disability index score to no greater than 25% to allow her to tolerate her usual activities LTG Duration 07/29/19 Assessment Summary Assessment Pt required significant cueing for no UT engagment & scap elevation with UE exercises. She reports feeling good after the session with no aggrevation. Physical Therapy Plan Frequency and Duration Frequency of Treatment 2x/Week Duration of Treatment 12 wks Plan of Care Start Date 04/30/19 Plan of Care End Date 07/29/19 Next Visit Focus/Plan Next Note Type Treatment Note Next Visit Plan COnt to progress strengthening for scapular stabiliation with aquatic and land PT
--- NOTE | 2019-06-17 15:30 | PT.OTN ---
Current Diagnoses Other cervical disc degeneration, unspecified cervical region (06/17/19) Abnormal posture (06/17/19) Weakness (06/17/19) Physical Therapy Treatment Note PT-OP-A Visit Information Start: 04/29/19 16:22 Freq: Status: Active Protocol: Document 06/17/19 15:30 SP (Rec: 06/17/19 15:55 SP [id number]) Out-Patient Physical Therapy Visit Information Visit Information Visit Type Treatment Note Visit Start Time 14:30 Visit Stop Time 15:30 Total Visit Minutes 55 Visit Number 12 Number of COW TENDER Visits 2 PT-OP-B Current Condition Start: 04/29/19 16:22 Freq: Status: Active Protocol: Document 04/30/19 10:15 [facility]AK (Rec: 04/30/19 15:12 SAK [id number]) Current Condition History of Current Condition Onset Date 11/13/18 Current Complaints disabling neck pain, occasional left hand numbness History of Current Condition Patient underwent cervical spine surgery including discectomy and fusion C6-C7 per patient; no surgical report available. Has had PT in inpatient rehab then home health, being discharged from home health PT 1 month ago. Was working primarily on gait, balance, did some UE ex. No treatment focused specifically on her neck. Patient reports she spends all day out of bed , doesn't have chair that has neck or head support, spends a lot of time on the computer. States she is unaware of her posture. Reports last x-ray showed bone growth and healing wasn't occuring around her fusion Future Testing and Treatments Planned Having x-ray tomorrow at Treatment Goals Patient/Caregiver Goals Decrease pain, improve activity tolerance. 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 Pt stated has been trying to do some of her exercises, wants copies to help recall at home. Pain is 5 /10 in posterior neck and still experienceing some numbness in her R > L middle and ring fingers. Patient Reported Progress Same PT-OP-F Manual Assessment Start: 04/29/19 16:22 Freq: Status: Active Protocol: Document 04/30/19 10:15 [facility]AK (Rec: 04/30/19 15:12 SAK [id number]) Manual Assessments Joint Mobility Assessment Joint Mobility Assessment not assessed due to surgical procedure, plan for repeat x- ray tomorrow PT-OP-G Mobility & Gait Start: 04/29/19 16:22 Freq: Status: Active Protocol: Document 04/30/19 10:15 SAK (Rec: 04/30/19 15:12 SAK [id number]) OP Gait Assessment Gait Gait Assistance Required: Standby Assistance Assistive Devices Assistive Device Front Wheeled Walker Gait Deviations General Gait Pattern Decreased Stride Length, Decreased Feet Clearance, Flexed Trunk Factors Limiting Gait Function Factors Limiting Gait Function Decreased Activity Tolerance, Pain Comments Gait Comments forward head, rounded shoulders PT-OP-H Neuro Start: 04/29/19 16:22 Freq: Status: Active Protocol: Document 04/30/19 10:15 SAK (Rec: 04/30/19 15:12 SAK [id number]) Sensation Evaluation Gross Sensation Sensation Description Paresthesia Dermatome Impairments C5,C6,C7 PT-OP-J Posture/Palpation/Skin Start: 04/29/19 16:22 Freq: Status: Active Protocol: Document 04/30/19 10:15 SAK (Rec: 04/30/19 15:12 SAK [id number]) Posture Evaluation Position Sitting Head/C-Spine Posture Forward Head T-Spine Posture Increased Kyphosis Shoulder Posture (L) Rounded,(R) Rounded Scapula Posture (L) Protracted,(R) Protracted Arm Posture (L) Internally Rotated,(R) Internally Rotated Palpation Assessment Location cervical spine Palpation Findings Tenderness Palpation Details tenderness with minimal palpation. Increased soft tissue tightness cervical spine bilaterally with poor tolerance for palpation, difficult to palpate bony prominences. PT-OP-K Range of Motion Start: 04/29/19 16:22 Freq: Status: Active Protocol: Document 04/30/19 10:15 SAK (Rec: 04/30/19 15:12 SAK [id number]) Cervical Spine Range of Motion Cervical Spine Active Testing Position Sitting Flexion 60 Extension 10 Rotation Left 48 Rotation Right 57 Lateral Flexion Left 20 Lateral Flexion Right 28 ROM Limitations Pain Shoulder Goniometric Range of Motion Shoulder Active Shoulder ROM WFL Yes Testing Position Sitting Elbow/Forearm Range of Motion Elbow/Forearm elif Elbow/Forearm ROM WFL Yes PT-OP-L Special Tests Start: 04/29/19 16:22 Freq: Status: Active Protocol: Document 04/30/19 10:15 SAK (Rec: 04/30/19 15:12 SAK [id number]) Special Tests Neural Special Tests- Upper Body Upper Limb Tension Test Test Results positive left PT-OP-M Strength Start: 04/29/19 16:22 Freq: Status: Active Protocol: Document 04/30/19 10:15 [facility]AK (Rec: 04/30/19 15:12 SAK [id number]) Cervical Spine Strength Cervical Spine Manual Muscle Testing Reason Not Measured Orthopedic Precautions,Pain Shoulder Strength Shoulder Manual Muscle Testing elif Comments demonstrates anti-gravity strength, no MMT due to neck pain and orthopedic precautions Hand Pharmaceutical Sales Specialist/Pinch Strength Hand Dominance Hand Dominance Right PT-OP-Q Treatments Start: 04/29/19 16:22 Freq: Status: Active Protocol: Document 06/17/19 15:30 SP (Rec: 06/17/19 15:55 SP [email or web address]) Therapeutic Exercises Supine Exercises reach thoracic rotation Side bilateral Reps/Minutes x5 each side shoulder flex Side bilateral Equipment Used 1# Reps/Minutes 15 chest press Side bilateral Equipment Used 1# Reps/Minutes 15 Horizontal Adduction Side bilateral Equipment Used 1# Reps/Minutes 15 Sidelying Exercises thoracic rotation Side bilateral Resistance AROM Reps/Minutes 5 each side Comments to allowable range, keep lower body still Sitting Exercises Median/ulnar nerve glide Side bilateral Reps/Minutes x5 Comments scapular neutral scap retraction/depression Side bilateral Resistance AROM x10 Equipment Used level 1 band x10 Comments cues for slow control hold x5sec Manual Therapy Treatment Soft Tissue Mobilization Upper Trap Body Location UT & LS Mobilization Type Rolling,Strumming Intensity/Depth Moderate Body Position Supine PT-OP-R Modalities Start: 04/29/19 16:22 Freq: Status: Active Protocol: Document 06/17/19 15:30 SP (Rec: 06/17/19 15:55 SP [id number]) Electric Stimulation Electric Stimulation Interferential Current (IFC) Body Location UT B Duration (Minutes) 15 Combined With Heat/Cold Cold Pack PT-OP-S Aquatic Treatment Start: 04/29/19 16:22 Freq: Status: Active Protocol: Document 06/02/19 14:20 MICAH (Rec: 06/02/19 14:34 LJ [id number]) Aquatics Treatment Pool Entry/Exit Pool Entry/Exit Method Lift Assistance Contact Guard Assistance Water Walking Forwards Water Level [place] Walking Equipment Ankle Weight- 2.5# Level of Assistance Verbal Cues squats Water Level Chest Level Walking Equipment Ankle Weight- 2.5# Level of Assistance Verbal Cues Comments at wall november with alternating UE's Water Level Chest Level Walking Equipment Ankle Weight- 2.5# Level of Assistance Verbal Cues sideways with shoulder ab/ad Water Level Chest Level Walking Equipment Ankle Weight- 2.5# Level of Assistance Verbal Cues backwards with reverse breastroke UE's Water Level Chest Level Walking Equipment Ankle Weight- 2.5# Level of Assistance Verbal Cues forward with breastroke UE' Water Level Chest Level Walking Equipment Ankle Weight- 2.5# Level of Assistance Verbal Cues Lower Extremity Exercises HS curls Body Position Standing Water Level Chest Level Equipment Ankle Weight- 2.5# Reps/Duration 12x bilat Comments uni UE support hip rotation Body Position Standing Reps/Duration 10x Comments unil UE support knee flex/ext Body Position Standing Water Level Chest Level Equipment Ankle Weight- 2.5# Reps/Duration 12x Comments cues for posture hip flex/ext Body Position Standing Water Level Chest Level Equipment Ankle Weight- 2.5# Reps/Duration 12x bilat hip ab/ad Body Position Standing Water Level Chest Level Equipment Ankle Weight- 2.5# Reps/Duration 10x Comments uni UE support Upper Extremity Exercises UE pull downs Body Position Standing Equipment small barbells Reps/Duration 10x Comments cues for core stabilization shoulder rolls Reps/Duration 10x shoulder circles Body Position Standing Water Level Chest Level Reps/Duration 10x ea CW, CCW shoulder hor ab/ad Body Position Standing Water Level Chest Level Reps/Duration 15x Spinal Exercises posterior pelvic tilts Body Position Standing Water Level Chest Level Reps/Duration 5x Comments against pool wall postural isometric Body Position Standing Water Level Chest Level Reps/Duration 3x Comments against pool wall PT-OP-T Assessment and Plan Start: 04/29/19 16:22 Freq: Status: Active Protocol: Document 06/17/19 15:30 SP (Rec: 06/17/19 15:55 SP [email or web address]) Physical Therapy Assessment Assessment Summary Assessment Pt required significant cueing for no UT engagment & scap elevation with UE exercises. Pt had no change in response to nerve glides today. Pain level did increase to 6/10 during shoulder exercises which improved at end of tx post manual STMs, IFC and CP to 5/10. Provided hand outs for assist with recall per patient request. Physical Therapy Plan Frequency and Duration Frequency of Treatment 2x/Week Duration of Treatment 12 wks Plan of Care Start Date 04/30/19 Plan of Care End Date 07/29/19 Therapeutic Interventions Therapeutic Interventions Aquatic Therapy,Home Exercise Program,Manual Therapy,Patient /Caregiver Education,Self-Care /Home Management,Soft Tissue Mobilization,Taping, Therapeutic Activities, Therapeutic Exercises, Wheelchair Management Modalities Cold Pack/Ice Massage,Electric Stimulation,Hot Packs Next Visit Focus/Plan Next Note Type Treatment Note Next Visit Plan COnt to progress strengthening for scapular stabiliation with aquatic and land PT
--- NOTE | 2019-06-26 11:07 | PT.OTN ---
Current Diagnoses Other cervical disc degeneration, unspecified cervical region (06/26/19) Abnormal posture (06/26/19) Weakness (06/26/19) Physical Therapy Treatment Note PT-OP-A Visit Information Start: 04/29/19 16:22 Freq: Status: Active Protocol: Document 06/26/19 10:30 DCW (Rec: 06/26/19 11:07 DCW [id number]) Out-Patient Physical Therapy Visit Information Visit Information Visit Type Treatment Note Visit Start Time 10:30 Visit Stop Time 11:15 Total Visit Minutes 45 Visit Number 13 Number of OIL FIELD WORKER Visits 0 PT-OP-B Current Condition Start: 04/29/19 16:22 Freq: Status: Active Protocol: Document 04/30/19 10:15 SAK (Rec: 04/30/19 15:12 SAK [id number]) Current Condition History of Current Condition Onset Date 11/13/18 Current Complaints disabling neck pain, occasional left hand numbness History of Current Condition Patient underwent cervical spine surgery including discectomy and fusion C6-C7 per patient; no surgical report available. Has had PT in inpatient rehab then home health, being discharged from home health PT 1 month ago. Was working primarily on gait, balance, did some UE ex. No treatment focused specifically on her neck. Patient reports she spends all day out of bed , doesn't have chair that has neck or head support, spends a lot of time on the computer. States she is unaware of her posture. Reports last x-ray showed bone growth and healing wasn't occuring around her fusion Future Testing and Treatments Planned Having x-ray tomorrow at Treatment Goals Patient/Caregiver Goals Decrease pain, improve activity tolerance. 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 Having difficulty sitting d/t back painfrom her kidney infection. PT-OP-F Manual Assessment Start: 04/29/19 16:22 Freq: Status: Active Protocol: Document 04/30/19 10:15 SAK (Rec: 04/30/19 15:12 [facility] [id number]) Manual Assessments Joint Mobility Assessment Joint Mobility Assessment not assessed due to surgical procedure, plan for repeat x- ray tomorrow PT-OP-G Mobility & Gait Start: 04/29/19 16:22 Freq: Status: Active Protocol: Document 04/30/19 10:15 SAK (Rec: 04/30/19 15:12 [facility] [id number]) OP Gait Assessment Gait Gait Assistance Required: Standby Assistance Assistive Devices Assistive Device Front Wheeled Walker Gait Deviations General Gait Pattern Decreased Stride Length, Decreased Feet Clearance, Flexed Trunk Factors Limiting Gait Function Factors Limiting Gait Function Decreased Activity Tolerance, Pain Comments Gait Comments forward head, rounded shoulders PT-OP-H Neuro Start: 04/29/19 16:22 Freq: Status: Active Protocol: Document 04/30/19 10:15 SAK (Rec: 04/30/19 15:12 [facility] [id number]) Sensation Evaluation Gross Sensation Sensation Description Paresthesia Dermatome Impairments C5,C6,C7 PT-OP-J Posture/Palpation/Skin Start: 04/29/19 16:22 Freq: Status: Active Protocol: Document 04/30/19 10:15 SAK (Rec: 04/30/19 15:12 [facility] [id number]) Posture Evaluation Position Sitting Head/C-Spine Posture Forward Head T-Spine Posture Increased Kyphosis Shoulder Posture (L) Rounded,(R) Rounded Scapula Posture (L) Protracted,(R) Protracted Arm Posture (L) Internally Rotated,(R) Internally Rotated Palpation Assessment Location cervical spine Palpation Findings Tenderness Palpation Details tenderness with minimal palpation. Increased soft tissue tightness cervical spine bilaterally with poor tolerance for palpation, difficult to palpate bony prominences. PT-OP-K Range of Motion Start: 04/29/19 16:22 Freq: Status: Active Protocol: Document 04/30/19 10:15 SAK (Rec: 04/30/19 15:12 SAK [id number]) Cervical Spine Range of Motion Cervical Spine Active Testing Position Sitting Flexion 60 Extension 10 Rotation Left 48 Rotation Right 57 Lateral Flexion Left 20 Lateral Flexion Right 28 ROM Limitations Pain Shoulder Goniometric Range of Motion Shoulder Active Shoulder ROM WFL Yes Testing Position Sitting Elbow/Forearm Range of Motion Elbow/Forearm elif Elbow/Forearm ROM WFL Yes PT-OP-L Special Tests Start: 04/29/19 16:22 Freq: Status: Active Protocol: Document 04/30/19 10:15 SAK (Rec: 04/30/19 15:12 SAK [id number]) Special Tests Neural Special Tests- Upper Body Upper Limb Tension Test Test Results positive left PT-OP-M Strength Start: 04/29/19 16:22 Freq: Status: Active Protocol: Document 04/30/19 10:15 SAK (Rec: 04/30/19 15:12 SAK [id number]) Cervical Spine Strength Cervical Spine Manual Muscle Testing Reason Not Measured Orthopedic Precautions,Pain Shoulder Strength Shoulder Manual Muscle Testing elif Comments demonstrates anti-gravity strength, no MMT due to neck pain and orthopedic precautions Hand Roustabout Head/Pinch Strength Hand Dominance Hand Dominance Right PT-OP-Q Treatments Start: 04/29/19 16:22 Freq: Status: Active Protocol: Document 06/26/19 10:30 DCW (Rec: 06/26/19 11:07 DCW [id number]) Gym Equipment Therapeutic Ball Resisted hip/knee flexion Exercise Details Resisted hip/knee flexion Ball Size/Color Blue - 45 cm Lv 2 T-band Low Trunk Rotation Exercise Details Low Trunk Rotation Ball Size/Color Blue - 45 cm Body Position Hooklying Therapeutic Exercises Supine Exercises Hip Abduction Supine Exercise Name Abduction Side bilateral Resistance Lv 2 Equipment Used T-band Adductor Ball Squeeze Supine Exercise Name Adductor Ball Squeeze Side bilateral shoulder flex Side bilateral Resistance 2# Equipment Used T-bar Reps/Minutes 15 chest press Side bilateral Resistance 2# Equipment Used T-bar Reps/Minutes 15 Horizontal Adduction Side bilateral Equipment Used 2# Reps/Minutes 15 Serratus Punch Side bilateral Equipment Used 2# Reps/Minutes 15 Manual Therapy Treatment Soft Tissue Mobilization Upper Trap Body Location UT & LS Mobilization Type Rolling,Strumming Intensity/Depth Moderate Body Position Supine PT-OP-R Modalities Start: 04/29/19 16:22 Freq: Status: Active Protocol: Document 06/26/19 10:30 DCW (Rec: 06/26/19 11:07 DCW [id number]) Electric Stimulation Electric Stimulation Interferential Current (IFC) Body Location UT B Duration (Minutes) 15 Patient Position Sitting Combined With Heat/Cold Cold Pack PT-OP-S Aquatic Treatment Start: 04/29/19 16:22 Freq: Status: Active Protocol: Document 06/02/19 14:20 MICAH (Rec: 06/02/19 14:34 LJ [id number]) Aquatics Treatment Pool Entry/Exit Pool Entry/Exit Method Lift Assistance Contact Guard Assistance Water Walking Forwards Water Level [place] Walking Equipment Ankle Weight- 2.5# Level of Assistance Verbal Cues squats Water Level Chest Level Walking Equipment Ankle Weight- 2.5# Level of Assistance Verbal Cues Comments at wall november with alternating UE's Water Level Chest Level Walking Equipment Ankle Weight- 2.5# Level of Assistance Verbal Cues sideways with shoulder ab/ad Water Level Chest Level Walking Equipment Ankle Weight- 2.5# Level of Assistance Verbal Cues backwards with reverse breastroke UE's Water Level Chest Level Walking Equipment Ankle Weight- 2.5# Level of Assistance Verbal Cues forward with breastroke UE' Water Level Chest Level Walking Equipment Ankle Weight- 2.5# Level of Assistance Verbal Cues Lower Extremity Exercises HS curls Body Position Standing Water Level Chest Level Equipment Ankle Weight- 2.5# Reps/Duration 12x bilat Comments uni UE support hip rotation Body Position Standing Reps/Duration 10x Comments unil UE support knee flex/ext Body Position Standing Water Level Chest Level Equipment Ankle Weight- 2.5# Reps/Duration 12x Comments cues for posture hip flex/ext Body Position Standing Water Level Chest Level Equipment Ankle Weight- 2.5# Reps/Duration 12x bilat hip ab/ad Body Position Standing Water Level Chest Level Equipment Ankle Weight- 2.5# Reps/Duration 10x Comments uni UE support Upper Extremity Exercises UE pull downs Body Position Standing Equipment small barbells Reps/Duration 10x Comments cues for core stabilization shoulder rolls Reps/Duration 10x shoulder circles Body Position Standing Water Level Chest Level Reps/Duration 10x ea CW, CCW shoulder hor ab/ad Body Position Standing Water Level Chest Level Reps/Duration 15x Spinal Exercises posterior pelvic tilts Body Position Standing Water Level Chest Level Reps/Duration 5x Comments against pool wall postural isometric Body Position Standing Water Level Chest Level Reps/Duration 3x Comments against pool wall PT-OP-T Assessment and Plan Start: 04/29/19 16:22 Freq: Status: Active Protocol: Document 06/26/19 10:30 DCW (Rec: 06/26/19 11:07 DCW [id number]) Physical Therapy Assessment Goals pain Impairment pain Short Term Goal (STG) Decrease pain to no greater than 5/10 STG Duration 04/30/19 Addiction Social Worker Goal (LTG) Decrease pain to no greater than 3/10 with all usual activities. LTG Duration 07/29/19 posture Impairment posture Short Term Goal (STG) Instruct in neutral postural alignment and HEP for postural correction and spinal stabilization STG Duration 04/30/19 Addiction Social Worker Goal (LTG) Patient to be independent with HEP and demonstrate improved postural awareness and alignment at rest and with functional activities LTG Duration 07/29/19 One Impairment activity tolerance Short Term Goal (STG) Improve neck disability index score no greater than 40% STG Duration 04/30/19 Addiction Social Worker Goal (LTG) Improve neck disability index score to no greater than 25% to allow her to tolerate her usual activities LTG Duration 07/29/19 Assessment Summary Assessment Pt not feeling well today due to kidney infection, therapist stepped back some of her activities, limited time in sitting, as it was increasing her discomfort. Physical Therapy Plan Frequency and Duration Frequency of Treatment 2x/Week Duration of Treatment 12 wks Plan of Care Start Date 04/30/19 Plan of Care End Date 07/29/19 Therapeutic Interventions Therapeutic Interventions Aquatic Therapy,Home Exercise Program,Manual Therapy,Patient /Caregiver Education,Self-Care /Home Management,Soft Tissue Mobilization,Taping, Therapeutic Activities, Therapeutic Exercises, Wheelchair Management Modalities Cold Pack/Ice Massage,Electric Stimulation,Hot Packs Next Visit Focus/Plan Next Note Type Treatment Note Next Visit Plan Cont to progress strengthening for scapular stabiliation with aquatic and land PT
--- NOTE | 2019-07-18 16:48 | PT.OTN ---
Current Diagnoses Other cervical disc degeneration, unspecified cervical region (07/18/19) Abnormal posture (07/18/19) Weakness (07/18/19) Physical Therapy Treatment Note PT-OP-A Visit Information Start: 04/29/19 16:22 Freq: Status: Active Protocol: Document 07/18/19 11:45 LJ (Rec: 07/18/19 16:48 LJ [id number]) Out-Patient Physical Therapy Visit Information Visit Information Visit Type Aquatic Treatment Note Visit Start Time 11:45 Visit Stop Time 12:20 Total Visit Minutes 35 Visit Number 14 Number of LENS EDGE GRINDER MACHINE Visits 1 PT-OP-B Current Condition Start: 04/29/19 16:22 Freq: Status: Active Protocol: Document 04/30/19 10:15 SAK (Rec: 04/30/19 15:12 SAK [id number]) Current Condition History of Current Condition Onset Date 11/13/18 Current Complaints disabling neck pain, occasional left hand numbness History of Current Condition Patient underwent cervical spine surgery including discectomy and fusion C6-C7 per patient; no surgical report available. Has had PT in inpatient rehab then home health, being discharged from home health PT 1 month ago. Was working primarily on gait, balance, did some UE ex. No treatment focused specifically on her neck. Patient reports she spends all day out of bed , doesn't have chair that has neck or head support, spends a lot of time on the computer. States she is unaware of her posture. Reports last x-ray showed bone growth and healing wasn't occuring around her fusion Future Testing and Treatments Planned Having x-ray tomorrow at Treatment Goals Patient/Caregiver Goals Decrease pain, improve activity tolerance. 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 PT-OP-F Manual Assessment Start: 04/29/19 16:22 Freq: Status: Active Protocol: Document 04/30/19 10:15 SAK (Rec: 04/30/19 15:12 [facility] [id number]) Manual Assessments Joint Mobility Assessment Joint Mobility Assessment not assessed due to surgical procedure, plan for repeat x- ray tomorrow PT-OP-G Mobility & Gait Start: 04/29/19 16:22 Freq: Status: Active Protocol: Document 04/30/19 10:15 SAK (Rec: 04/30/19 15:12 [facility] [id number]) OP Gait Assessment Gait Gait Assistance Required: Standby Assistance Assistive Devices Assistive Device Front Wheeled Walker Gait Deviations General Gait Pattern Decreased Stride Length, Decreased Feet Clearance, Flexed Trunk Factors Limiting Gait Function Factors Limiting Gait Function Decreased Activity Tolerance, Pain Comments Gait Comments forward head, rounded shoulders PT-OP-H Neuro Start: 04/29/19 16:22 Freq: Status: Active Protocol: Document 04/30/19 10:15 SAK (Rec: 04/30/19 15:12 [facility] [id number]) Sensation Evaluation Gross Sensation Sensation Description Paresthesia Dermatome Impairments C5,C6,C7 PT-OP-J Posture/Palpation/Skin Start: 04/29/19 16:22 Freq: Status: Active Protocol: Document 04/30/19 10:15 SAK (Rec: 04/30/19 15:12 [facility] [id number]) Posture Evaluation Position Sitting Head/C-Spine Posture Forward Head T-Spine Posture Increased Kyphosis Shoulder Posture (L) Rounded,(R) Rounded Scapula Posture (L) Protracted,(R) Protracted Arm Posture (L) Internally Rotated,(R) Internally Rotated Palpation Assessment Location cervical spine Palpation Findings Tenderness Palpation Details tenderness with minimal palpation. Increased soft tissue tightness cervical spine bilaterally with poor tolerance for palpation, difficult to palpate bony prominences. PT-OP-K Range of Motion Start: 04/29/19 16:22 Freq: Status: Active Protocol: Document 04/30/19 10:15 SAK (Rec: 04/30/19 15:12 SAK [id number]) Cervical Spine Range of Motion Cervical Spine Active Testing Position Sitting Flexion 60 Extension 10 Rotation Left 48 Rotation Right 57 Lateral Flexion Left 20 Lateral Flexion Right 28 ROM Limitations Pain Shoulder Goniometric Range of Motion Shoulder Active Shoulder ROM WFL Yes Testing Position Sitting Elbow/Forearm Range of Motion Elbow/Forearm elif Elbow/Forearm ROM WFL Yes PT-OP-L Special Tests Start: 04/29/19 16:22 Freq: Status: Active Protocol: Document 04/30/19 10:15 SAK (Rec: 04/30/19 15:12 SAK [id number]) Special Tests Neural Special Tests- Upper Body Upper Limb Tension Test Test Results positive left PT-OP-M Strength Start: 04/29/19 16:22 Freq: Status: Active Protocol: Document 04/30/19 10:15 SAK (Rec: 04/30/19 15:12 SAK [id number]) Cervical Spine Strength Cervical Spine Manual Muscle Testing Reason Not Measured Orthopedic Precautions,Pain Shoulder Strength Shoulder Manual Muscle Testing elif Comments demonstrates anti-gravity strength, no MMT due to neck pain and orthopedic precautions Hand Insurance Processing Clerk/Pinch Strength Hand Dominance Hand Dominance Right PT-OP-Q Treatments Start: 04/29/19 16:22 Freq: Status: Active Protocol: Document 06/26/19 10:30 DCW (Rec: 06/26/19 11:07 DCW [id number]) Gym Equipment Therapeutic Ball Resisted hip/knee flexion Exercise Details Resisted hip/knee flexion Ball Size/Color Blue - 45 cm Lv 2 T-band Low Trunk Rotation Exercise Details Low Trunk Rotation Ball Size/Color Blue - 45 cm Body Position Hooklying Therapeutic Exercises Supine Exercises Hip Abduction Supine Exercise Name Abduction Side bilateral Resistance Lv 2 Equipment Used T-band Adductor Ball Squeeze Supine Exercise Name Adductor Ball Squeeze Side bilateral shoulder flex Side bilateral Resistance 2# Equipment Used T-bar Reps/Minutes 15 chest press Side bilateral Resistance 2# Equipment Used T-bar Reps/Minutes 15 Horizontal Adduction Side bilateral Equipment Used 2# Reps/Minutes 15 Serratus Punch Side bilateral Equipment Used 2# Reps/Minutes 15 Manual Therapy Treatment Soft Tissue Mobilization Upper Trap Body Location UT & LS Mobilization Type Rolling,Strumming Intensity/Depth Moderate Body Position Supine PT-OP-R Modalities Start: 04/29/19 16:22 Freq: Status: Active Protocol: Document 06/26/19 10:30 DCW (Rec: 06/26/19 11:07 DCW [id number]) Electric Stimulation Electric Stimulation Interferential Current (IFC) Body Location UT B Duration (Minutes) 15 Patient Position Sitting Combined With Heat/Cold Cold Pack PT-OP-S Aquatic Treatment Start: 04/29/19 16:22 Freq: Status: Active Protocol: Document 07/18/19 11:45 MICAH (Rec: 07/18/19 16:48 [id number]) Aquatics Treatment Pool Entry/Exit Pool Entry/Exit Method Lift Assistance Contact Guard Assistance Water Walking squats Water Level Chest Level Walking Equipment Ankle Weight- 2.5# Level of Assistance Verbal Cues Comments at wall, on lg november with alternating UE's Water Level Chest Level Walking Equipment Ankle Weight- 2.5# Level of Assistance Verbal Cues sideways with shoulder ab/ad Water Level Chest Level Walking Equipment Ankle Weight- 2.5# Level of Assistance Verbal Cues forward with breastroke UE' Water Level Chest Level Walking Equipment Ankle Weight- 2.5# Level of Assistance Verbal Cues Upper Extremity Exercises UE pull downs Body Position Standing Equipment small barbells Reps/Duration 10x Comments cues for core stabilization shoulder rolls Reps/Duration 10x shoulder circles Body Position Standing Water Level Chest Level Reps/Duration 10x ea CW, CCW shoulder hor ab/ad Body Position Standing Water Level Chest Level Reps/Duration 15x Spinal Exercises posterior pelvic tilts Body Position Standing Water Level Chest Level Reps/Duration 5x Comments against pool wall [place] Activities [place] Activities Bicycle,Cross Country,Hip Abduction/Adduction Other Activities #2.5 wts, no floatation Duration 8 min PT-OP-T Assessment and Plan Start: 04/29/19 16:22 Freq: Status: Active Protocol: Document 07/18/19 11:45 MICAH (Rec: 07/18/19 16:48 [id number]) Physical Therapy Assessment Goals pain Impairment pain Short Term Goal (STG) Decrease pain to no greater than 5/10 STG Duration 04/30/19 Mentally Impaired Teacher Goal (LTG) Decrease pain to no greater than 3/10 with all usual activities. LTG Duration 07/29/19 posture Impairment posture Short Term Goal (STG) Instruct in neutral postural alignment and HEP for postural correction and spinal stabilization STG Duration 04/30/19 Mentally Impaired Teacher Goal (LTG) Patient to be independent with HEP and demonstrate improved postural awareness and alignment at rest and with functional activities LTG Duration 07/29/19 One Impairment activity tolerance Short Term Goal (STG) Improve neck disability index score no greater than 40% STG Duration 04/30/19 Fpc Goal (LTG) Improve neck disability index score to no greater than 25% to allow her to tolerate her usual activities LTG Duration 07/29/19 Assessment Summary Assessment Pt arrived 45 min early and stayed for 35 min of treatment session. Overall pt walked in pool for 45 min while waiting for therapy. Tolerated therapy well and would have stayed for the entire session but needed to use the restroom . Activity tolerance improved. Physical Therapy Plan Frequency and Duration Frequency of Treatment 2x/Week Duration of Treatment 12 wks Plan of Care Start Date 04/30/19 Plan of Care End Date 07/29/19 Therapeutic Interventions Therapeutic Interventions Aquatic Therapy,Home Exercise Program,Manual Therapy,Patient /Caregiver Education,Self-Care /Home Management,Soft Tissue Mobilization,Taping, Therapeutic Activities, Therapeutic Exercises, Wheelchair Management Modalities Cold Pack/Ice Massage,Electric Stimulation,Hot Packs Next Visit Focus/Plan Next Note Type Treatment Note Next Visit Plan Cont to progress strengthening for scapular stabiliation with aquatic and land PT
--- NOTE | 2019-11-18 11:28 | PT.OTN ---
Current Diagnoses Other cervical disc degeneration, unspecified cervical region (07/18/19) Abnormal posture (07/18/19) Weakness (07/18/19) Physical Therapy Treatment Note PT-OP-A Visit Information Start: 04/29/19 16:22 Freq: Status: Active Protocol: Document 11/18/19 11:28 SAK (Rec: 11/18/19 11:28 SAK [id number]) Out-Patient Physical Therapy Visit Information Visit Information Visit Type Discharge Summary Visit Note Patient not seen for PT since 07/18/20. PT-OP-B Current Condition Start: 04/29/19 16:22 Freq: Status: Active Protocol: Document 04/30/19 10:15 SAK (Rec: 04/30/19 15:12 SAK [id number]) Current Condition History of Current Condition Onset Date 11/13/18 Current Complaints disabling neck pain, occasional left hand numbness History of Current Condition Patient underwent cervical spine surgery including discectomy and fusion C6-C7 per patient; no surgical report available. Has had PT in inpatient rehab then home health, being discharged from home health PT 1 month ago. Was working primarily on gait, balance, did some UE ex. No treatment focused specifically on her neck. Patient reports she spends all day out of bed , doesn't have chair that has neck or head support, spends a lot of time on the computer. States she is unaware of her posture. Reports last x-ray showed bone growth and healing wasn't occuring around her fusion Future Testing and Treatments Planned Having x-ray tomorrow at Treatment Goals Patient/Caregiver Goals Decrease pain, improve activity tolerance. 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 PT-OP-F Manual Assessment Start: 04/29/19 16:22 Freq: Status: Active Protocol: Document 04/30/19 10:15 SAK (Rec: 04/30/19 15:12 SAK [id number]) Manual Assessments Joint Mobility Assessment Joint Mobility Assessment not assessed due to surgical procedure, plan for repeat x- ray tomorrow PT-OP-G Mobility & Gait Start: 04/29/19 16:22 Freq: Status: Active Protocol: Document 04/30/19 10:15 SAK (Rec: 04/30/19 15:12 SAK [id number]) OP Gait Assessment Gait Gait Assistance Required: Standby Assistance Assistive Devices Assistive Device Front Wheeled Walker Gait Deviations General Gait Pattern Decreased Stride Length, Decreased Feet Clearance, Flexed Trunk Factors Limiting Gait Function Factors Limiting Gait Function Decreased Activity Tolerance, Pain Comments Gait Comments forward head, rounded shoulders PT-OP-H Neuro Start: 04/29/19 16:22 Freq: Status: Active Protocol: Document 04/30/19 10:15 SAK (Rec: 04/30/19 15:12 [facility] [id number]) Sensation Evaluation Gross Sensation Sensation Description Paresthesia Dermatome Impairments C5,C6,C7 PT-OP-J Posture/Palpation/Skin Start: 04/29/19 16:22 Freq: Status: Active Protocol: Document 04/30/19 10:15 SAK (Rec: 04/30/19 15:12 SAK [id number]) Posture Evaluation Position Sitting Head/C-Spine Posture Forward Head T-Spine Posture Increased Kyphosis Shoulder Posture (L) Rounded,(R) Rounded Scapula Posture (L) Protracted,(R) Protracted Arm Posture (L) Internally Rotated,(R) Internally Rotated Palpation Assessment Location cervical spine Palpation Findings Tenderness Palpation Details tenderness with minimal palpation. Increased soft tissue tightness cervical spine bilaterally with poor tolerance for palpation, difficult to palpate bony prominences. PT-OP-K Range of Motion Start: 04/29/19 16:22 Freq: Status: Active Protocol: Document 04/30/19 10:15 SAK (Rec: 04/30/19 15:12 SAK [id number]) Cervical Spine Range of Motion Cervical Spine Active Testing Position Sitting Flexion 60 Extension 10 Rotation Left 48 Rotation Right 57 Lateral Flexion Left 20 Lateral Flexion Right 28 ROM Limitations Pain Shoulder Goniometric Range of Motion Shoulder Active Shoulder ROM WFL Yes Testing Position Sitting Elbow/Forearm Range of Motion Elbow/Forearm elif Elbow/Forearm ROM WFL Yes PT-OP-L Special Tests Start: 04/29/19 16:22 Freq: Status: Active Protocol: Document 04/30/19 10:15 SAK (Rec: 04/30/19 15:12 SAK [id number]) Special Tests Neural Special Tests- Upper Body Upper Limb Tension Test Test Results positive left PT-OP-M Strength Start: 04/29/19 16:22 Freq: Status: Active Protocol: Document 04/30/19 10:15 SAK (Rec: 04/30/19 15:12 SAK [id number]) Cervical Spine Strength Cervical Spine Manual Muscle Testing Reason Not Measured Orthopedic Precautions,Pain Shoulder Strength Shoulder Manual Muscle Testing elif Comments demonstrates anti-gravity strength, no MMT due to neck pain and orthopedic precautions Hand Enterprise Solutions Architect/Pinch Strength Hand Dominance Hand Dominance Right PT-OP-Q Treatments Start: 04/29/19 16:22 Freq: Status: Active Protocol: Document 06/26/19 10:30 DCW (Rec: 06/26/19 11:07 DCW [id number]) Gym Equipment Therapeutic Ball Resisted hip/knee flexion Exercise Details Resisted hip/knee flexion Ball Size/Color Blue - 45 cm Lv 2 T-band Low Trunk Rotation Exercise Details Low Trunk Rotation Ball Size/Color Blue - 45 cm Body Position Hooklying Therapeutic Exercises Supine Exercises Hip Abduction Supine Exercise Name Abduction Side bilateral Resistance Lv 2 Equipment Used T-band Adductor Ball Squeeze Supine Exercise Name Adductor Ball Squeeze Side bilateral shoulder flex Side bilateral Resistance 2# Equipment Used T-bar Reps/Minutes 15 chest press Side bilateral Resistance 2# Equipment Used T-bar Reps/Minutes 15 Horizontal Adduction Side bilateral Equipment Used 2# Reps/Minutes 15 Serratus Punch Side bilateral Equipment Used 2# Reps/Minutes 15 Manual Therapy Treatment Soft Tissue Mobilization Upper Trap Body Location UT & LS Mobilization Type Rolling,Strumming Intensity/Depth Moderate Body Position Supine PT-OP-R Modalities Start: 04/29/19 16:22 Freq: Status: Active Protocol: Document 06/26/19 10:30 DCW (Rec: 06/26/19 11:07 DCW [id number]) Electric Stimulation Electric Stimulation Interferential Current (IFC) Body Location UT B Duration (Minutes) 15 Patient Position Sitting Combined With Heat/Cold Cold Pack PT-OP-S Aquatic Treatment Start: 04/29/19 16:22 Freq: Status: Active Protocol: Document 07/18/19 11:45 LJ (Rec: 07/18/19 16:48 LJ [id number]) Aquatics Treatment Pool Entry/Exit Pool Entry/Exit Method Lift Assistance Contact Guard Assistance Water Walking squats Water Level Chest Level Walking Equipment Ankle Weight- 2.5# Level of Assistance Verbal Cues Comments at wall, on november with alternating UE's Water Level Chest Level Walking Equipment Ankle Weight- 2.5# Level of Assistance Verbal Cues sideways with shoulder ab/ad Water Level Chest Level Walking Equipment Ankle Weight- 2.5# Level of Assistance Verbal Cues forward with breastroke UE' Water Level Chest Level Walking Equipment Ankle Weight- 2.5# Level of Assistance Verbal Cues Upper Extremity Exercises UE pull downs Body Position Standing Equipment small barbells Reps/Duration 10x Comments cues for core stabilization shoulder rolls Reps/Duration 10x shoulder circles Body Position Standing Water Level Chest Level Reps/Duration 10x ea CW, CCW shoulder hor ab/ad Body Position Standing Water Level Chest Level Reps/Duration 15x Spinal Exercises posterior pelvic tilts Body Position Standing Water Level Chest Level Reps/Duration 5x Comments against pool wall Ulmer Activities Ulmer Activities Bicycle,Cross Country,Hip Abduction/Adduction Other Activities #2.5 wts, no floatation Duration 8 min PT-OP-T Assessment and Plan Start: 04/29/19 16:22 Freq: Status: Active Protocol: Document 11/18/19 11:28 SAK (Rec: 11/18/19 11:28 SAK [id number]) Physical Therapy Plan Discharge Physical Therapy Discharge Reasons No Longer Attending PT
--- NOTE | 2019-11-18 11:29 | PT.OPDS ---
Current Diagnoses Other cervical disc degeneration, unspecified cervical region (07/18/19) Abnormal posture (07/18/19) Weakness (07/18/19) Visit Care Team Role Provider Type Margaret Vuong DO Primary Care Provider Non-Staff Specialty: [facility] Address: [address] [place] [address], [place], [address] Email: Amy Baca MD Attending Provider Non-Staff Specialty: [facility] Address: [address] [place] [address], [address] Email: Visit Number Visit Number 14 Discharge Summary PT-OP-B Current Condition Start: 04/29/19 16:22 Freq: Status: Active Protocol: Document 04/30/19 10:15 SAK (Rec: 04/30/19 15:12 SAK [id number]) Current Condition History of Current Condition Onset Date 11/13/18 Current Complaints disabling neck pain, occasional left hand numbness History of Current Condition Patient underwent cervical spine surgery including discectomy and fusion C6-C7 per patient; no surgical report available. Has had PT in inpatient rehab then home health, being discharged from home health PT 1 month ago. Was working primarily on gait, balance, did some UE ex. No treatment focused specifically on her neck. Patient reports she spends all day out of bed , doesn't have chair that has neck or head support, spends a lot of time on the computer. States she is unaware of her posture. Reports last x-ray showed bone growth and healing wasn't occuring around her fusion Future Testing and Treatments Planned Having x-ray tomorrow at Treatment Goals Patient/Caregiver Goals Decrease pain, improve activity tolerance. 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 PT-OP-F Manual Assessment Start: 04/29/19 16:22 Freq: Status: Active Protocol: Document 04/30/19 10:15 SAK (Rec: 04/30/19 15:12 SAK [id number]) Manual Assessments Joint Mobility Assessment Joint Mobility Assessment not assessed due to surgical procedure, plan for repeat x- ray tomorrow PT-OP-G Mobility & Gait Start: 04/29/19 16:22 Freq: Status: Active Protocol: Document 04/30/19 10:15 SAK (Rec: 04/30/19 15:12 SAK [id number]) OP Gait Assessment Gait Gait Assistance Required: Standby Assistance Assistive Devices Assistive Device Front Wheeled Walker Gait Deviations General Gait Pattern Decreased Stride Length, Decreased Feet Clearance, Flexed Trunk Factors Limiting Gait Function Factors Limiting Gait Function Decreased Activity Tolerance, Pain Comments Gait Comments forward head, rounded shoulders PT-OP-H Neuro Start: 04/29/19 16:22 Freq: Status: Active Protocol: Document 04/30/19 10:15 SAK (Rec: 04/30/19 15:12 SAK [id number]) Sensation Evaluation Gross Sensation Sensation Description Paresthesia Dermatome Impairments C5,C6,C7 PT-OP-J Posture/Palpation/Skin Start: 04/29/19 16:22 Freq: Status: Active Protocol: Document 04/30/19 10:15 SAK (Rec: 04/30/19 15:12 [facility] [id number]) Posture Evaluation Position Sitting Head/C-Spine Posture Forward Head T-Spine Posture Increased Kyphosis Shoulder Posture (L) Rounded,(R) Rounded Scapula Posture (L) Protracted,(R) Protracted Arm Posture (L) Internally Rotated,(R) Internally Rotated Palpation Assessment Location cervical spine Palpation Findings Tenderness Palpation Details tenderness with minimal palpation. Increased soft tissue tightness cervical spine bilaterally with poor tolerance for palpation, difficult to palpate bony prominences. PT-OP-K Range of Motion Start: 04/29/19 16:22 Freq: Status: Active Protocol: Document 04/30/19 10:15 SAK (Rec: 04/30/19 15:12 SAK [id number]) Cervical Spine Range of Motion Cervical Spine Active Testing Position Sitting Flexion 60 Extension 10 Rotation Left 48 Rotation Right 57 Lateral Flexion Left 20 Lateral Flexion Right 28 ROM Limitations Pain Shoulder Goniometric Range of Motion Shoulder Active Shoulder ROM WFL Yes Testing Position Sitting Elbow/Forearm Range of Motion Elbow/Forearm elif Elbow/Forearm ROM WFL Yes PT-OP-L Special Tests Start: 04/29/19 16:22 Freq: Status: Active Protocol: Document 04/30/19 10:15 SAK (Rec: 04/30/19 15:12 [facility] [id number]) Special Tests Neural Special Tests- Upper Body Upper Limb Tension Test Test Results positive left PT-OP-M Strength Start: 04/29/19 16:22 Freq: Status: Active Protocol: Document 04/30/19 10:15 SAK (Rec: 04/30/19 15:12 [facility] [id number]) Cervical Spine Strength Cervical Spine Manual Muscle Testing Reason Not Measured Orthopedic Precautions,Pain Shoulder Strength Shoulder Manual Muscle Testing elif Comments demonstrates anti-gravity strength, no MMT due to neck pain and orthopedic precautions Hand Roller Repairer/Pinch Strength Hand Dominance Hand Dominance Right PT-OP-T Assessment and Plan Start: 04/29/19 16:22 Freq: Status: Active Protocol: Document 11/18/19 11:28 [facility] (Rec: 11/18/19 11:28 [facility] [id number]) Physical Therapy Plan Discharge Physical Therapy Discharge Reasons No Longer Attending PT
== END 2019-11-19 08:36 ==
LOC: PHYS 11:45
PROVIDERS: PCP Family Medicine; Visit Provider Family Medicine
DX: M50.30 Other cervical disc degeneration, unspecified cervical region (principal); R29.3 Abnormal posture; R53.1 Weakness
CPT/HCPCS: 97010; 97014; 97110; 97113; 97140; 97162; 97535; G0283

== ENCOUNTER → 2019-08-21 09:49 | Outpatient (CLI) | payer OTHER, MEDICAID, SELFPAY ==
--- NOTE | 2019-08-21 | DI.US.S_ITS ---
PROCEDURE: US THYROID INDICATIONS: NODULES TECHNIQUE: Real-time scanning was performed of the thyroid gland, with image documentation. COMPARISON: [facility], US, US THYROID, 05/26/2019, 12:32. FINDINGS: Nodule number: 1 Location: Right mid Size: Unchanged 0.7 x 0.4 x 1.0 cm. Composition: Predominantly solid Echogenicity: Hypoechoic Shape: wider than tall. Margins: Smooth Echogenic foci: None Total points: 4 ACR TI-RADS category: Moderately suspicious Nodule number: 2 Location: Right mid Size: New nodule measuring 1.4 x 1.1 x 1.1 cm. Composition: Predominantly solid Echogenicity: Hypoechoic Shape: wider than tall. Margins: Smooth Echogenic foci: None Total points: 4 ACR TI-RADS category: Moderately suspicious Nodule number: 3 Location: Left inferior Size: Unchanged at 1.5 x 0.8 x 1.0 cm. Composition: Predominantly cystic Echogenicity: Hypoechoic Shape: wider than tall. Margins: Smooth Echogenic foci: None Total points: 2 ACR TI-RADS category: Not requested.suspicious Nodule number: 4 Location: Left mid Size: Unchanged 0.6 x 0.4 x 0.5 cm. Composition: Predominantly solid Echogenicity: Hypoechoic Shape: wider than tall. Margins: Smooth Echogenic foci: Internal punctate echogenic foci Total points: 7 ACR TI-RADS category: Highly suspicious IMPRESSION: Stable appearance of bilateral thyroid nodules and there is a new right-sided nodule. Recommend continued followup ultrasound as detailed below. ACR TI-RADS definitions and recommendations: TI-RADS 1 (benign): 0 points. FNA not needed. TI-RADS 2 (not suspicious): 2 points. FNA not needed. TI-RADS 3 (mildly suspicious): 3 points. * FNA if 2.5 cm or larger, follow up if 1.5 cm or larger (at 1, 3, and 5 years). TI-RADS 4 (moderately suspicious): 4-6 points. * FNA if 1.5 cm or larger, follow up if 1 cm or larger (at 1, 2, 3, and 5 years). TI-RADS 5 (highly suspicious): 7 points or more. * FNA if 1 cm or larger, follow up if 0.5 cm or larger (every year for 5 years). Dictated by: Jorge Luis WATERS Interpreted: Nino Aviles MD on 08/21/2019 at 15:42 Approved by: Nino Aviles M.D. on 08/21/2019 at 16:03
== END ==
PROVIDERS: PCP Family Medicine; Visit Provider Otolaryngology Plastic Surgery within the Head & Neck
DX: E04.2 Nontoxic multinodular goiter (principal)
CPT/HCPCS: 76536

== ENCOUNTER → 2020-04-16 10:18 | Outpatient (CLI) | payer MEDICARE, MEDICAID, SELFPAY ==
--- NOTE | 2020-04-16 10:21 | DI.US.S_ITS ---
PROCEDURE: US THYROID INDICATIONS: NONTOXIC MULTINODULAR GOITER TECHNIQUE: Real-time scanning was performed of the thyroid gland, with image documentation. COMPARISON: Merged With [facility], US, US THYROID, 08/21/2019, 10:40. FINDINGS: Right: Thyroid lobe measures 5.4 x 1.7 x 1.7 cm, and is diffusely heterogeneous in echotexture. Left: Thyroid lobe measures 5.2 x 1.6 x 1.5 cm, and is diffusely heterogeneous in echotexture. Isthmus: 5.0 mm thick. Nodule number: 1 Location: Right mid Size: Unchanged 0.7 x 0.4 x 0.5 cm. Composition: Solid Echogenicity: Hypoechoic Shape: wider than tall. Margins: Smooth Echogenic foci: None Total points: 4 ACR TI-RADS category: Moderately suspicious Nodule number: Right mid Location: Right mid Size: Unchanged at 1.6 x 1.3 x 1.4 Composition: Solid Echogenicity: Hypoechoic Shape: wider than tall. Margins: Smooth Echogenic foci: None Total points: 4 ACR TI-RADS category: Moderately suspicious Nodule number: 3 Location: Left inferior Size: Unchanged 1.5 x 0.9 x 1.1 cm. Composition: Cystic Echogenicity: Anechoic Shape: wider than tall. Margins: Smooth Echogenic foci: None Total points: 0 ACR TI-RADS category: Colloid cyst Nodule number: 4 Location: Left mid Size: Unchanged at 0.8 x 0.3 x 0.8 cm. Composition: Solid Echogenicity: Hypoechoic Shape: wider than tall. Margins: Smooth Echogenic foci: None Total points: 4 ACR TI-RADS category: Moderately suspicious IMPRESSION: Stable appearance of bilateral thyroid nodules. Recommend continued followup ultrasound as detailed below. ACR TI-RADS definitions and recommendations: TI-RADS 1 (benign): 0 points. FNA not needed. TI-RADS 2 (not suspicious): 2 points. FNA not needed. TI-RADS 3 (mildly suspicious): 3 points. * FNA if 2.5 cm or larger, follow up if 1.5 cm or larger (at 1, 3, and 5 years). TI-RADS 4 (moderately suspicious): 4-6 points. * FNA if 1.5 cm or larger, follow up if 1 cm or larger (at 1, 2, 3, and 5 years). TI-RADS 5 (highly suspicious): 7 points or more. * FNA if 1 cm or larger, follow up if 0.5 cm or larger (every year for 5 years). Dictated by: Jorge Luis OVIEDO Interpreted: Bryce Madrigal MD on 04/16/2020 at 14:46 Approved by: Bryce Madrigal M.D. on 04/16/2020 at 15:48
== END ==
PROVIDERS: PCP Family Medicine; Referring Provider Otolaryngology; Visit Provider Otolaryngology
DX: E04.2 Nontoxic multinodular goiter (principal)
CPT/HCPCS: 76536

== ENCOUNTER → 2020-05-04 09:52 | Outpatient (CLI) | payer MEDICARE, MEDICAID, SELFPAY ==
--- NOTE | 2020-05-04 | DI.RAD.S_ITS ---
PROCEDURE: FL BARIUM SWALLOW W SPEECH INDICATIONS: Other dysphagia COMPARISON: None. TECHNIQUE: Examination was conducted in conjunction with speech pathology per standard protocol. In the lateral projection, filming was performed of the patient swallowing. AP projection filming may also be performed with patient swallowing. COMPARISON: FINDINGS: Function: The oral preparatory phase appears normal, with proper containment. The subsequent oral propulsive phase, pharyngeal phase, and esophageal phase of swallowing also appear normal with all proffered substances. No laryngotracheal penetration or aspiration. No pathologic vallecular pooling. Morphology: No cricopharyngeal bar is identified. No cervical esophageal webs. No Zenker's diverticulum. No strictures. IMPRESSION: No penetration or aspiration seen. Please also refer to the dedicated speech therapy swallowing evaluation report, which will be independently generated. Dictated by: Rikki Man M.D. on 05/04/2020 at 12:28 Approved by: Rikki Man M.D. on 05/04/2020 at 12:29
--- NOTE | 2020-05-04 14:14 | ST.SWALLOW ---
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 Sharma Reason for Referral dysphagia Setting Setting Outpatient Care Patient Information Identification Type Name,Date of Patient History Pt was seen for a Modified barium Swallow Study at the referral of Dr. Sharma, ENT. 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 She reports improvements after surgery, but continues to have occasional choking, coughing due to xerostomia, difficulty swallowing pills, difficulty swallowing solids, globus sensation and odynophagia. Currently she consumes thin liquids with chopped solids and takes her pills in a carrier. She has received previous therapy for dysphagia and dysphonia through [facility] last summer. She has also had 2 Modified Barium Swallow Studies performed at [facility]. Pt reported that she is having pain with swallowing. Subjective Observations Pt was seated in the fluoroscopy chair. Pt noted that she is familiar with the procedure. Instructions were provided to the pt, who agreed to proceed. Patient Positioning Position View Lateral Imaging Lateral View Textures Administered Trials Presented Thin Liquid via Spoon,Thin Liquid via Cup,Pudding Thick Liquid via Spoon,Regular Textures,Barium Tablet Oral Phase Source: MBSIMP (TM) (C) Bolus Specific Scoring Grid Lip Closure WFL Tongue Control During Bolus Hold WFL Bolus Prep/Mastication WFL Bolus Transport/Lingual Motion WFL A/P Lingual Propulsion Delay No Oral Residue WFL Residue Clearing WFL Nasal Regurgitation No Additional Oral Phase Observations Pt is missing all upper molars and some bicuspid teeth. This may effect mastication of foods and be contributory to the pt's reported difficulty with swallowing Pharyngeal Phase Source: MBSIMP (TM) (C) Bolus Specific Scoring Grid Delayed Initiation of Pharyngeal Swallow No Soft Palate Elevation WFL Tongue Base Strength/Range of Motion Mild Impairment Residue Along the Tongue Base No: Trace Clearance of Residue Along Tongue Base WFL Laryngeal Elevation WFL Anterior Hyoid Movement WFL Epiglottic Range of Motion WFL Vallecular Residue Yes Clearance of Vallecular Residue Mild Impairment Laryngeal Vestibular Closure WFL Pharyngeal Stripping Wave Minimal Impairment Posterior Pharyngeal Wall Residue Yes Clearance of Posterior Pharyngeal Wall Minimal Impairment Residue Upper Esophageal Sphincter Opening WFL Residue in the Pyriform Sinuses Yes Clearance of Residue in the Pyriform Minimal Impairment Sinuses Esophageal Clearance Upright Position WFL Pharyngoesophageal Backflow Observed No Additional Pharyngeal Phase Observations Pt presented with mildly impaired pharyngeal dysphagia characterized by reduced strength of tongue base , resulting in pooled secretions in the valeculla, posterior pharyngeal wall and pyriform sinuses. Residue was minimal to mild. Epiglottic inversion was complete for all trials except the 11 mm tablet, which was lodged in the valeculla and cleared with second swallow. Throughout the MBSS, the pt c/ o pain with every swallow. During the pt interview, she mentioned that her scar tissue from the ACDF (right side of base of neck) has adhesions. This may be related to her pain with swallowing. Relative to the medications getting difficult for the pt to swallow, it was suggested that, if she can, to crush the medication and use acarrier to aid in swallowing. A/P View Esophageal Observations Esophageal Function An esophageal screening was not conducted Clinical Impressions Dysphagia Type oropharyngeal dysphagia Rehabilitation Potential Excellent Patient Appropriate for Therapy Yes: Pt is currently receiving dysphagia therapy at Recommendations Diet Liquids Order Thin Diet Order Mechanical Soft Medication Recommendation Crushed in Carrier Aspiration Precautions Recommended Precautions Upright at 90 Degrees, Alternate Liquids/Solids,Small Bites/Sips Treatment Plan Therapy Recommendations Outpatient Speech Therapy Recommended Referrals Primary Care Physician
== END ==
PROVIDERS: PCP Family Medicine; Referring Provider Family Medicine; Visit Provider Otolaryngology
DX: R13.19 Other dysphagia (principal)
CPT/HCPCS: 74230; 92611

== ENCOUNTER 2020-06-03 12:30 | Outpatient (RCR) | payer MEDICARE, MEDICAID, SELFPAY ==
--- NOTE | 2020-04-01 16:15 | ST.OPIE ---
Visit Care Team Role Provider Type Margaret Vuong DO Primary Care Provider Non-Staff Specialty: Family Practice Address: [address] [place] [address], [place], [address] Email: Santosh Sharma MD Attending Provider Physician Referring Provider Specialty: Ear, Nose, Throat Address: [address] [place] [address], [address] Email: [email or web address] Speech-Language Pathology Initial Evaluation [employer] Clinical Swallow Evaluation Start: 04/01/20 15:44 Freq: Status: Active Protocol: Document 04/01/20 15:45 TLC (Rec: 04/01/20 16:15 TLC [id number]) Clinical Swallow Evaluation Session Time Visit Start Time 13:30 Visit Stop Time 14:15 Total Visit Minutes 45 Visit Information Visit Number 1 Plan of Care Dates 04/01/20-06/02/20 Insurance Information [employer] Referral Referring Physician Dr. Sharma, ENT Reason for Referral Dysphagia Setting Assessment Location Outpatient Care Visit Type Note Type Initial Evaluation Next Note Type Next Note Type Treatment Note Patient Information Identification Type Name History Patient has 3+year history of dysphagia. She underwent ACDF (C5-C6) in 2018 due to osteophyte which was obstructing pharynx and causes regurgitation of food. She reports improvements after surgery, but continues to have occasional choking, coughing due to xerostomia, difficulty swallowing pills, difficulty swallowing solids, globus sensation and odynophagia. Currently she consumes thin liquids with chopped solids and takes her pills in a carrier. She has received previous therapy for dysphagia and dysphonia through [facility] last summer. She has also had 2 Modified Barium Swallow Studies performed at [facility]. Subjective Observations Patient arrived on time accompanied by her who was present during the session. Patient sat in a wheelchair for the evaluation. She reported pain in her neck as a 3-4 on the numeric scale . Evaluation Liquids Trialed Thin Solids Trialed Regular Administration Type Self-Feeding Oral Impairment Mildly Impaired Oral Phase Comments [place] and moist oral mucoa. Missing upper molars. Lip function was within functional limits with symmetrical movement, but reduced coordination during alternating pucker/retraction. Tongue and jaw function are within normal limits. Patient reports hyperactive gag reflex . Normal nasality with reduced vocal quality. Patient describes voice as gravely. Reduced respiratory sufficiency for swallow,breath pattern observed during consecutive sips. Patient was positioned upright at 90 degrees in her wheelchair for PO trials of water and eva cracker. Mild oral impairment observed secondary to missing dentition which negatively impacts mastication resulting in mild oral residue. Pharyngeal Phase Comments Unable to assess pharyngeal swallow today without instrumental assessment; however, no signs of aspiration were observed during PO trials. Previous MBS from 02/12/19 states: velopharyngeal closure, tongue base retraction, pharyngeal compression and contraction, laryngeal elevation and anterioer excursion were all normal. No aspiration or laryngeal penetration observed during the study. Findings Dysphagia Type Oral Impressions Patient underwent removal of osteophyte and cervical surgery (C5-6) in 2018. Since that time, her symptoms have improved however, she continues to experience solid and pill dysphagia. She endorses improvement following speech therapy through [facility] . She was found to have mild oral phase dysphagia due to missing dentition. Assessment of pharyngeal phase of swallowing as well as effectiveness of strategies is recommended through repeat MBSS. Diet Recommendations Liquids Order Thin Diet Order Mechanical Soft Medication Recommendations Whole in Carrier Treatment Plan Therapy Recommendations 1. Repeat MBS to include trial of compensatory strategies in order to guide plan of care Dysphagia Goals Luann will participate in repeat MBS in order to guide plan of care.
--- NOTE | 2020-06-03 13:10 | ST.IPDYTX ---
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 Luann reports improvements in overall swallowing, but states she still experiences pain when swallowing and occasional difficulty with pills. Treatment Treatment Activities Reviewed results of MBSS. Provided verbal and written HEP including Effortful Swallow, Lisa Maneuver, Chin Tuck against resistance and tongue pull backs to improve base of tongue strength and epiglottic inversion. Assessment Patient Response to Treatment Good Rehab Potential Good Assessment of Improvement No questions regarding HEP. Recommend f/u with Dr. Sharma and d/c from at this time. Diet Recommendations Recommendations Continue Current Diet Medication Recommendations Whole in Carrier Aspiration Precautions Recommended Precautions Upright at 90 Degrees, Alternate Liquids/Solids,Small Bites/Sips Treatment Plan Appropriate for Continued Therapy No Referrals/Other Recommended Referrals ENT Consult
== END 2020-06-04 08:43 ==
LOC: SP 12:30
PROVIDERS: PCP Family Medicine; Referring Provider Otolaryngology; Visit Provider Otolaryngology
DX: R13.19 Other dysphagia (principal)
CPT/HCPCS: 92526; 92610

== ENCOUNTER 2021-04-11 10:11 | Emergency (ER) | payer OTHER, MEDICAID, SELFPAY ==
[2021-04-11 10:31] VITALS: BP 194/84; PULSE 80; RESP 16; TEMP 36.7; O2SAT 98; BMI 54.6
--- NOTE | 2021-04-11 10:34 | ED.GENADULT ---
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 Has also had diarrhea. No fevers. Some nausea but no vomiting. No chest pain. No shortness of breath. No urinary symptoms. Was seen by her primary doctor and was placed on Macrobid for what seems to be a presumed urinary tract infection. She states she started taking this and then started vomiting so she was switched to Cipro. She has completed 5 day course of Cipro. She states she has had diverticulitis in the past and when the symptoms started with similar to diverticulitis. Related Data Allergies Allergy/AdvReac Type Severity Reaction Status Date / Time Iodine and Iodide Containing Allergy Verified 04/11/21 10:56 Produc Review of Systems Constitutional Constitutional: Reports as per HPI Cardiovascular Cardiovascular: Reports system reviewed and no additional complaints, except as documented Respiratory Respiratory: Reports system reviewed and no additional complaints, except as documented Gastrointestinal Gastrointestinal: Reports as per HPI Genitourinary Genitourinary: Reports as per HPI Musculoskeletal Musculoskeletal: Reports system reviewed and no additional complaints, except as documented Integumentary/Breasts Skin/Breast: Reports system reviewed and no additional complaints, except as documented Neurologic Neurologic: Reports system reviewed and no additional complaints, except as documented Hematologic/Lymphatic On Anticoagulants: No Allergic/Immunologic Allergic/Immunologic: Reports system reviewed and no additional complaints, except as documented Patient History Medical History CVA (cerebral vascular accident) Diverticulitis Surgical History History of cholecystectomy History of splenectomy Hx of appendectomy Social History lives independently: Yes Smoking Status: Never smoker Exam Initial Vital Signs Initial Vital Signs: Vital Signs Temperature 98.1 F 04/11/21 10:31 Pulse Rate 80 04/11/21 10:31 Respiratory Rate 16 04/11/21 10:31 Blood Pressure 194/84 H 04/11/21 10:31 Pulse Oximetry 98 04/11/21 10:31 Const General: cooperative and comfortable HENMT Head: normal to inspection and normocephalic Eyes General: appearance normal, both eyes and all related structures Resp Effort & Inspection: normal respiratory effort Auscultation: clear to auscultation bilaterally Cardio Rate: regular rate Rhythm: regular rhythm GI Inspection: normal to inspection Palpation: soft and tender (Lower abdomen) Skin General: no rashes or lesions noted Neuro General: patient alert, patient awake and moves all extremities Extrem General: normal to inspection and capillary refill normal Psych Appearance: grossly normal and well kempt Course Orders Ordered: ED Orders 04/11/21 10:55 CT abdomen pelvis wo con Stat 04/11/21 11:15 Complete Blood Count AUTO DIFF Stat Comprehensive Metabolic Panel Stat Lipase Stat Discontinued Medications Sodium Chloride (Normal Saline 0.9%) 1,000 mls @ 1,000 mls/hr IV BOLUS ONE Stop: 04/11/21 11:32 Last Infusion: 04/11/21 11:46 Dose: 0 mls/hr Documented by: Admin: 04/11/21 10:46 Dose: 1,000 mls/hr Documented by: EDILBERTO Vital Signs Vital signs: Vital Signs - 8 hr 04/11/21 10:31 04/11/21 12:55 04/11/21 12:57 Temperature 98.1 F Pulse Rate 80 70 Respiratory Rate 16 Blood Pressure 194/84 H 166/72 H Pulse Oximetry 98 89 L 98 04/11/21 13:00 Temperature Pulse Rate 68 Respiratory Rate Blood Pressure 165/73 H Pulse Oximetry 98 Medical Decision Making Lab Data Lab results reviewed: Yes I reviewed the patient's lab results. Result diagrams: 04/11/21 11:15 04/11/21 11:15 Labs: Lab Results 04/11/21 04/11/21 Range/Units 11:15 11:15 WBC 17.1 H (4.5-11.0) X10^3/uL RBC 3.92 L (4.0-5.2) X10^6/uL Hgb 12.3 (12.0-16.0) g/dL Hct 37.8 (36-46) % MCV 96.5 (80-100) fL MCH 31.4 (26-34) PG MCHC 32.6 (30-36) % RDW 14.0 (11.6-14.8) % Plt Count 356 (150-400) X10^3/uL Neut % (Auto) 66.8 (50-75) % Lymph % (Auto) 20.7 L (25-40) % [place] % (Auto) 7.5 (3-14) % Eos % (Auto) 3.8 (2-4) % Baso % (Auto) 1.2 (0-2) % Neut # (Auto) 93877 H (7661-9373) /uL Lymph # (Auto) 3500 (5911-6990) /uL [place] # (Auto) 1300 H (0-900) /uL Eos # (Auto) 700 H (0-450) /uL Baso # (Auto) 200 H (0-100) /uL Sodium 140 (137-145) mmol/L Potassium 4.5 (3.4-5.1) mmol/L Chloride 107 (98-107) mmol/L Carbon Dioxide 28 (22-32) mmol/L BUN 21 H (7-17) mg/dL Creatinine 0.94 (0.52-1.04) mg/dL Estimated GFR 58.5 L (>60) mL/min BUN/Creatinine Ratio 22.3 H (6-22) Glucose 121 H (80-110) mg/dL Calcium 9.7 (8.4-10.2) mg/dL Total Bilirubin 0.9 (0.2-1.3) mg/dL AST 34 (14-36) IU/L ALT 29 (<35) IU/L Alkaline Phosphatase 80 (38-126) U/L Total Protein 7.3 (6.3-8.2) g/dL Albumin 3.8 (3.5-5.0) g/dL Globulin 3.5 (1.7-4.1) g/dL Albumin/Globulin Ratio 1.1 (1.0-2.8) Lipase 28 (23-300) U/L Urine Dip Bedside Urine Glucose Negative Bedside Urine Bilirubin - Negative Bedside Urine Ketone - Negative Urine Specific [place] 1.015 Bedside Urine Occult Blood - Negative Bedside Urine pH 6.0 Bedside Urine Protein - Negative Bedside Urine Urobilinogen - Negative Bedside Urine Nitrite - Negative Bedside Urine Leukocytes - Negative Esterase Point of care testing: Urine Dip Bedside Urine Glucose Negative Bedside Urine Bilirubin - Negative Bedside Urine Ketone - Negative Urine Specific [place] 1.015 Bedside Urine Occult Blood - Negative Bedside Urine pH 6.0 Bedside Urine Protein - Negative Bedside Urine Urobilinogen - Negative Bedside Urine Nitrite - Negative Bedside Urine Leukocytes - Negative Esterase Imaging Data CT scan - abdomen/pelvis: Radiologist's Impression: [address] [id number] Scan ReportSigned Patient: Luann FosterMR#: [id number]: 9Acct:[id number]/Sex: 71 / FDate of Service: 04/11/21Loc: EDAccession Number: [id number] Procedure: CT abdomen pelvis wo con Ordering Provider: Corey Mann D.O. PROCEDURE: CT ABDOMEN PELVIS WO CON INDICATIONS: Left lower quadrant abdominal pain TECHNIQUE: After the administration of oral contrast, 5 mm thick sections acquired from the diaphragms to the symphysis. 5 mm coronal and sagittal reformats were performed. For radiation dose reduction, the following was used: automated exposure control, adjustment of mA and/or kV according to patient size. COMPARISON: None. FINDINGS: Image quality: Excellent. ABDOMEN: Lung bases: Lung bases are clear. Heart size is normal. Moderate to severe coronary artery calcifications. Solid organs: Liver is normal in size. Gallbladder is surgically absent. Pancreas is normal in size. Diffuse fatty replacement of the pancreas. Spleen is surgically absent. No adrenal nodules. Both kidneys are normal in size, without hydronephrosis or nephrolithiasis. Peritoneum and bowel: Bowel loops demonstrate normal wall thickness and caliber. No free fluid or air. Mild sigmoid diverticulosis without evidence of diverticulitis. Nodes and vessels: No retroperitoneal or mesenteric adenopathy by size criteria. Aorta and inferior vena cava are normal in size. Dense abdominal aortic calcifications. Miscellaneous: No ventral hernias. PELVIS: Genitourinary: Bladder wall thickness is normal. Miscellaneous: No inguinal hernias or adenopathy. Uterus is surgically absent. Bones: No suspicious bony lesions. No vertebral body compression fractures. Extensive lumbar degenerative change. IMPRESSION: 1. No evidence of acute abdominal process. No evidence of acute diverticulitis. 2. Mild diverticulosis. 3. Moderately severe coronary artery atherosclerotic calcifications. 4. Remote splenectomy, cholecystectomy, hysterectomy. Dictated by: Meng Collins M.D. on 04/11/2021 at 12:39 Approved by: Meng Collins M.D. on 04/11/2021 at 12:45 MDM Narrative Medical decision making narrative: Patient does have a leukocytosis however CT scan does not show any signs of an acute infection. Her urine is unremarkable. The rest her labs unremarkable. No indication for repeat laboratory work today. Indication for surgical consultation. Will have the patient contact her primary doctor for follow-up to discuss potential referral to see Gastroenterology. She was given return precautions. She expressed understanding and agreement. Discharge Plan Departure Patient Disposition: Home Clinical Impression: Abdominal pain Instructions: DI for Abdominal Pain-Adult Activity Restrictions/Additional Instructions: Your CT scan today is very reassuring. There is no indication for us to switch you to any different antibiotics and no indication for any surgical intervention. Recommend that you contact your primary doctor for a follow-up. Return to the emergency department for any new or worsening symptoms Referrals: Margaret Vuong DO [Primary Care Provider] -
[2021-04-11] MEDS: SODIUM CHLORIDE 0.9% 1,000 ML 1000 ML IV (10:46)
--- NOTE | 2021-04-11 10:55 | DI.CT.S_ITS ---
PROCEDURE: CT ABDOMEN PELVIS WO CON INDICATIONS: Left lower quadrant abdominal pain TECHNIQUE: After the administration of oral contrast, 5 mm thick sections acquired from the diaphragms to the symphysis. 5 mm coronal and sagittal reformats were performed. For radiation dose reduction, the following was used: automated exposure control, adjustment of mA and/or kV according to patient size. COMPARISON: None. FINDINGS: Image quality: Excellent. ABDOMEN: Lung bases: Lung bases are clear. Heart size is normal. Moderate to severe coronary artery calcifications. Solid organs: Liver is normal in size. Gallbladder is surgically absent. Pancreas is normal in size. Diffuse fatty replacement of the pancreas. Spleen is surgically absent. No adrenal nodules. Both kidneys are normal in size, without hydronephrosis or nephrolithiasis. Peritoneum and bowel: Bowel loops demonstrate normal wall thickness and caliber. No free fluid or air. Mild sigmoid diverticulosis without evidence of diverticulitis. Nodes and vessels: No retroperitoneal or mesenteric adenopathy by size criteria. Aorta and inferior vena cava are normal in size. Dense abdominal aortic calcifications. Miscellaneous: No ventral hernias. PELVIS: Genitourinary: Bladder wall thickness is normal. Miscellaneous: No inguinal hernias or adenopathy. Uterus is surgically absent. Bones: No suspicious bony lesions. No vertebral body compression fractures. Extensive lumbar degenerative change. IMPRESSION: 1. No evidence of acute abdominal process. No evidence of acute diverticulitis. 2. Mild diverticulosis. 3. Moderately severe coronary artery atherosclerotic calcifications. 4. Remote splenectomy, cholecystectomy, hysterectomy. Dictated by: Meng Collins M.D. on 04/11/2021 at 12:39 Approved by: Meng Collins M.D. on 04/11/2021 at 12:45
[2021-04-11 11:19] LABS: Add Manual Diff / Slide Review NO; Basophils Absolute Auto 200 /uL (0-100); Basophils Percent Auto 1.2 % (0-2); Eosinophils Absolute Auto 700 /uL (0-450); Eosinophils Percent Auto 3.8 % (2-4); Hematocrit 37.8 % (36-46); Hemoglobin 12.3 g/dL (12.0-16.0); Lymphocytes Absolute Auto 3500 /uL (1100-4500); Lymphocytes Percent Auto 20.7 % (25-40); Mean Corpuscular HGB Conc 32.6 % (30-36); Mean Corpuscular Hemoglobin 31.4 PG (26-34); Mean Corpuscular Volume 96.5 fL (80-100); Monocytes Absolute Auto 1300 /uL (0-900); Monocytes Percent Auto 7.5 % (3-14); Neutrophils Absolute Auto 11400 /uL (1500-7000); Neutrophils Percent Auto 66.8 % (50-75); Platelet Count 356 X10^3/uL (150-400); Red Blood Cell Count 3.92 X10^6/uL (4.0-5.2); White Blood Cell Count 17.1 X10^3/uL (4.5-11.0)
[2021-04-11 11:34] LABS: Alanine Aminotransferase 29 IU/L (<35); Albumin 3.8 g/dL (3.5-5.0); Albumin Globulin Ratio 1.1 (1.0-2.8); Alkaline Phosphatase 80 U/L (38-126); Aspartate Aminotransferase 34 IU/L (14-36); BUN Creatinine Ratio 22.3 (6-22); Bilirubin Total 0.9 mg/dL (0.2-1.3); Blood Urea Nitrogen 21 mg/dL (7-17); Calcium 9.7 mg/dL (8.4-10.2); Carbon Dioxide 28 mmol/L (22-32); Chloride 107 mmol/L (98-107); Estimated Glomerular Filt Rate 58.5 mL/min (>60); Globulin 3.5 g/dL (1.7-4.1); Glucose 121 mg/dL (80-110); HEMOLYSIS 104 (0-50); Lipase 28 U/L (23-300); Potassium 4.5 mmol/L (3.4-5.1); Sodium 140 mmol/L (137-145); Total Protein 7.3 g/dL (6.3-8.2)
[2021-04-11 12:55] VITALS: O2SAT 89
[2021-04-11 12:57] VITALS: BP 166/72; PULSE 70; O2SAT 98
[2021-04-11 13:00] VITALS: BP 165/73; PULSE 68; O2SAT 98
== END 2021-04-11 13:38 | disposition home or self-care (01) ==
PROVIDERS: Emergency Provider Emergency Medicine; PCP Family Medicine
DX: R10.32 Left lower quadrant pain (principal)
CPT/HCPCS: 36415; 74176; 80053; 81003; 83690; 85025; 96360; 99284

== ENCOUNTER → 2021-05-02 11:12 | Outpatient (CLI) | payer OTHER, MEDICAID, SELFPAY ==
--- NOTE | 2021-05-02 | DI.US.S_ITS ---
PROCEDURE: US THYROID INDICATIONS: NONTOXIC MULTINODULAR GOITER TECHNIQUE: Real-time scanning was performed of the thyroid gland, with image documentation. COMPARISON: [facility], US, US THYROID, 04/16/2020, 10:43. FINDINGS: Right: Thyroid lobe measures 5.1 x 2.4 x 1.8 cm, and is heterogeneous in echotexture. Left: Thyroid lobe measures 5.7 x 1.3 x 1.7 cm, and is heterogeneous in echotexture. Isthmus: 6.8 mm thick. Nodule number: 1 Location: Right midpole Size: Stable at 0.7 x 1.0 x 0.4 cm. Composition: Predominantly solid Echogenicity: Hypoechoic Shape: wider than tall. Margins: Smooth Echogenic foci: Non Total points: 4 ACR TI-RADS category: Moderately suspicious Nodule number: 2 Location: Right mid inferior Size: Decreased at 1.3 x 1.6 x 0.7 cm. . Composition: Mixed cystic and solid Echogenicity: Hypoechoic Shape: wider than tall. Margins: Indistinct Echogenic foci: No Total points: 4 ACR TI-RADS category: Moderately suspicious Nodule number: 3 Location: Left inferior pole Size: Decreased to 0.7 x 0.7 x 0.3 cm. Composition: Solid Echogenicity: Hypoechoic Shape: Partially exophytic, ovoid, decompressed colloid cyst Margins: Smooth Echogenic foci: No Total points: 4 ACR TI-RADS category: Moderately suspicious Nodule number: 4 Location: Left midpole Size: Decreased to 0.6 x 0.6 x 0.3 cm. Composition: Solid Echogenicity: Hypoechoic Shape: wider than tall. Margins: Smooth Echogenic foci: No Total points: 4 ACR TI-RADS category: Moderately suspicious IMPRESSION: 1. Minimal long-term change in size and morphology of bilateral small thyroid nodules compared to 2016. 2. No further follow-up required. ACR TI-RADS definitions and recommendations: TI-RADS 1 (benign): 0 points. FNA not needed. TI-RADS 2 (not suspicious): 2 points. FNA not needed. TI-RADS 3 (mildly suspicious): 3 points. * FNA if 2.5 cm or larger, follow up if 1.5 cm or larger (at 1, 3, and 5 years). TI-RADS 4 (moderately suspicious): 4-6 points. * FNA if 1.5 cm or larger, follow up if 1 cm or larger (at 1, 2, 3, and 5 years). TI-RADS 5 (highly suspicious): 7 points or more. * FNA if 1 cm or larger, follow up if 0.5 cm or larger (every year for 5 years). Dictated by: Lilliana Gonzales M.D. on 05/02/2021 at 14:55 Approved by: Lilliana Gonzales M.D. on 05/02/2021 at 15:08
== END ==
PROVIDERS: PCP Student in an Organized Health Care Education/Training Program; Referring Provider Otolaryngology; Visit Provider Otolaryngology
DX: E04.2 Nontoxic multinodular goiter (principal)
CPT/HCPCS: 76536

== ENCOUNTER 2021-06-26 17:41 | Emergency (ER) | payer OTHER, MEDICAID, SELFPAY ==
[2021-06-26] VITALS (8 sets, daily range): BP systolic 132–153; BP diastolic 57–89; PULSE 78–94; RESP 16; TEMP 36.6; O2SAT 92–100; BMI 50.8
--- NOTE | 2021-06-26 18:12 | ED.SKABFB ---
HPI - Skin/Abscess/Foreign Bdy General Chief complaint: Skin/Abscess/Foreign Body Stated complaint: cellulitis to lower leg x14 days Time Seen by Provider: 06/26/21 18:03 Source: patient Mode of arrival: Ambulatory History of Present Illness HPI narrative: Patient is a 71-year-old female here for evaluation of cellulitis to left lower extremity. Approximately 2 weeks ago she was seen at her primary doctor's office for a redness to her left lower extremity. She was diagnosed with cellulitis. Was placed on clindamycin. Took 2 weeks of clindamycin. This ended a couple days ago. She felt like that the redness had resolved. She stated that she woke up from a nap today and noticed redness and some discomfort an warmth to her left leg. She states overall she feels well. No fevers. No chest pain. No nausea vomiting. No abdominal pain. Has minimal discomfort with movement of her left ankle. Related Data Previous Rx's Medication Instructions Recorded doxycycline hyclate 100 mg tablet 100 mg PO BID 7 Days #14 tab 06/26/21 Allergies Allergy/AdvReac Type Severity Reaction Status Date / Time Iodine and Iodide Containing Allergy Verified 04/11/21 10:56 Produc Review of Systems Cardiovascular Cardiovascular: Reports system reviewed and no additional complaints, except as documented Respiratory Respiratory: Reports system reviewed and no additional complaints, except as documented Gastrointestinal Gastrointestinal: Reports system reviewed and no additional complaints, except as documented Musculoskeletal Musculoskeletal: Reports system reviewed and no additional complaints, except as documented and Reports as per HPI Integumentary/Breasts Skin/Breast: Reports system reviewed and no additional complaints, except as documented and Reports as per HPI Neurologic Neurologic: Reports system reviewed and no additional complaints, except as documented Hematologic/Lymphatic On Anticoagulants: No Allergic/Immunologic Allergic/Immunologic: Reports system reviewed and no additional complaints, except as documented Patient History Medical History CVA (cerebral vascular accident) Diverticulitis Surgical History History of cholecystectomy History of splenectomy Hx of appendectomy Social History lives independently: Yes Smoking Status: Never smoker Smoking Status: Never smoker alcohol intake frequency: 0-2 drinks per day Substance Use Type: does not use Exam Initial Vital Signs Initial Vital Signs: Vital Signs Temperature 97.9 F 06/26/21 17:58 Pulse Rate 94 H 06/26/21 17:58 Respiratory Rate 16 06/26/21 17:58 Blood Pressure 136/60 06/26/21 17:58 Pulse Oximetry 100 06/26/21 17:58 Const General: cooperative, healthy appearing and comfortable [facility] Head: normal to inspection and normocephalic Resp Effort & Inspection: normal respiratory effort Auscultation: clear to auscultation bilaterally Cardio Rate: regular rate Rhythm: regular rhythm GI Inspection: normal to inspection Skin Other: Patient with circumferential redness around her left ankle. Does extend just distal to the ankle and up to the intersection of the medial and distal 1/3 of her left tibia. No vesicles. No crepitus. Neuro General: patient alert, patient awake and moves all extremities Extrem General: normal to inspection and capillary refill normal Course Orders Ordered: ED Orders 06/26/21 18:19 XR tibia fibula LT 2V Stat 06/26/21 18:23 Complete Blood Count AUTO DIFF Stat 06/26/21 19:15 Basic Metabolic Panel Stat Lactate (Lactic Acid) Stat Discontinued Medications Doxycycline Hyclate (Doxycycline Hyclate 100 Mg Tablet) 100 mg PO NOW ONE Stop: 06/26/21 18:20 Last Admin: 06/26/21 18:37 Dose: 100 mg Documented by: ROLAND Vital Signs Vital signs: Vital Signs - 8 hr 06/26/21 17:58 06/26/21 18:23 06/26/21 18:30 Temperature 97.9 F Pulse Rate 94 H 81 80 Respiratory Rate 16 Blood Pressure 136/60 Pulse Oximetry 100 92 98 06/26/21 18:40 06/26/21 19:00 Temperature Pulse Rate 81 78 Respiratory Rate Blood Pressure 132/57 L Pulse Oximetry 95 97 MDM - Skin/Abscess/Foreign Bdy Lab Data Attestation: I reviewed the patient's lab results. Result diagrams: 06/26/21 18:23 06/26/21 19:15 Labs: Lab Results 06/26/21 06/26/21 06/26/21 Range/Units 18:23 19:15 19:15 WBC 28.3 H (4.5-11.0) X10^3/uL RBC 3.56 L (4.0-5.2) X10^6/uL Hgb 11.3 L (12.0-16.0) g/dL Hct 34.3 L (36-46) % MCV 96.6 (80-100) fL MCH 31.6 (26-34) PG MCHC 32.8 (30-36) % RDW 15.5 H (11.6-14.8) % Plt Count 288 (150-400) X10^3/uL Neut % (Auto) Not Reportable Lymph % (Auto) Not Reportable [place] % (Auto) Not Reportable Eos % (Auto) Not Reportable Baso % (Auto) Not Reportable Lymph # (Auto) Not Reportable [place] # (Auto) Not Reportable Baso # (Auto) Not Reportable Total Counted 100 Seg Neutrophils % 72.0 H (38-70) % Band Neutrophils % 17.0 H (3-7) % Lymphocytes % (Manual) 7.0 L (25-45) % Monocytes % (Manual) 4.0 (2-11) % Neutrophils # (Manual) 85141 H (0224-7728) /uL RBC Morphology See below Poikilocytosis 2+ H Target Cells 1+ H Acanthocytes (Spur) 1+ H Sodium 140 (137-145) mmol/L Potassium 4.6 (3.4-5.1) mmol/L Chloride 108 H (98-107) mmol/L Carbon Dioxide 27 (22-32) mmol/L BUN 30 H (7-17) mg/dL Creatinine 1.18 H (0.52-1.04) mg/dL Estimated GFR 45.0 L (>60) mL/min BUN/Creatinine Ratio 25.4 H (6-22) Glucose 120 H (80-110) mg/dL Lactate 0.9 (0.7-2.1) mmol/L Calcium 9.9 (8.4-10.2) mg/dL Imaging Data Extremity x-ray #1: Radiologist's Impression: [address] [address] XRay Report Signed Patient: Luann Foster MR#: [id number] : 1950 Acct:[id number] Age/Sex: 71 / F Date of Service: 06/26/21 Loc: ED Accession Number: [id number] ?? Procedure: XR tibia fibula LT 2V Ordering Provider: Corey Mann D.O. PROCEDURE:? XR TIBIA FIBULA LT 2V ? INDICATIONS:? cellulitis distal eval for free air ? TECHNIQUE:? 2 views of the tibia and fibula were acquired.? ? COMPARISON:? None. ? FINDINGS:? ? Bones:? No fractures or dislocations.? No suspicious bony lesions.? ? Soft tissues:? No suspicious soft tissue calcifications or masses.? Vasculature has atherosclerotic calcifications. ? IMPRESSION:? No acute abnormality.? No soft tissue gas. ? ? Dictated by: Neil Ash M.D. on 06/26/2021 at 19:01 ? ? Approved by: Neil Ash M.D. on 06/26/2021 at 19:02 MDM Narrative Medical decision making narrative: Patient is afebrile and appears well. Not tachycardic. Does have a leukocytosis but she also has an infection in her left lower extremity. The x-ray does not show any signs free air. There is no crepitus. She was able to tolerate the antibiotics by mouth. I do feel that despite the fact that this is a reoccurrence of an infection in her lower extremity that a trial of oral antibiotics as an outpatient is warranted given her presentation today. The area was outlined. She was given strict return precautions and follow-up instructions. She expressed understanding and agreement. Discharge Plan Departure Patient Disposition: Home Clinical Impression: Cellulitis Instructions: DI for Cellulitis -- Adult Activity Restrictions/Additional Instructions: We will place you on antibiotics to treat this infection. They were electronically transmitted to [facility] in [place]. Picked them up and start taking them as directed with your 1st dose being tomorrow morning. Contact your primary doctor for a follow-up. Return to the emergency department for any new symptoms to include fevers, inability to take your antibiotics, worsening redness, worsening pain, or any other new symptoms. Prescriptions: New doxycycline hyclate 100 mg tablet 100 mg PO BID 7 Days Qty: 14 RF: 0 Referrals: Maura Roldan MD [Primary Care Provider] -
--- NOTE | 2021-06-26 18:19 | DI.RAD.S_ITS ---
PROCEDURE: XR TIBIA FIBULA LT 2V INDICATIONS: cellulitis distal eval for free air TECHNIQUE: 2 views of the tibia and fibula were acquired. COMPARISON: None. FINDINGS: Bones: No fractures or dislocations. No suspicious bony lesions. Soft tissues: No suspicious soft tissue calcifications or masses. Vasculature has atherosclerotic calcifications. IMPRESSION: No acute abnormality. No soft tissue gas. Dictated by: Neil Ash M.D. on 06/26/2021 at 19:01 Approved by: Neil Ash M.D. on 06/26/2021 at 19:02
[2021-06-26 18:34] LABS: Hematocrit 34.3 % (36-46); Hemoglobin 11.3 g/dL (12.0-16.0); Mean Corpuscular HGB Conc 32.8 % (30-36); Mean Corpuscular Hemoglobin 31.6 PG (26-34); Mean Corpuscular Volume 96.6 fL (80-100); Platelet Count 288 X10^3/uL (150-400); Red Blood Cell Count 3.56 X10^6/uL (4.0-5.2); Red Cell Distribution Width 15.5 % (11.6-14.8); White Blood Cell Count 28.3 X10^3/uL (4.5-11.0)
[2021-06-26] MEDS: DOXYCYCLINE HYCLATE 100 MG TABLET PO (18:37)
[2021-06-26 19:11] LABS: Add Manual Diff / Slide Review YES
[2021-06-26 19:12] LABS: Neutrophils Absolute Manual 25187 /uL (3000-5900); Total Cells Counted 100
[2021-06-26 19:13] LABS: Poikilocytosis 2+
[2021-06-26 19:15] LABS: Acanthocytes 1+; Target Cells 1+
[2021-06-26 19:40] LABS: BUN Creatinine Ratio 25.4 (6-22); Blood Urea Nitrogen 30 mg/dL (7-17); Calcium 9.9 mg/dL (8.4-10.2); Carbon Dioxide 27 mmol/L (22-32); Chloride 108 mmol/L (98-107); Glucose 120 mg/dL (80-110); HEMOLYSIS < 15 (0-50); Potassium 4.6 mmol/L (3.4-5.1); Sodium 140 mmol/L (137-145)
[2021-06-26 19:41] LABS: Lactate (Lactic Acid) 0.9 mmol/L (0.7-2.1)
== END 2021-06-26 20:15 | disposition home or self-care (01) ==
PROVIDERS: Emergency Provider Emergency Medicine; PCP Student in an Organized Health Care Education/Training Program
DX: L03.116 Cellulitis of left lower limb (principal)
CPT/HCPCS: 36415; 73590; 80048; 83605; 85007; 85025; 99284

== ENCOUNTER → 2021-06-27 09:57 | Outpatient (CLI) | payer OTHER, MEDICAID, SELFPAY ==
--- NOTE | 2021-06-27 | DI.US.S_ITS ---
PROCEDURE: US FINE NEEDLE ASPIRATION INDICATIONS: RT THYROID FNA TECHNIQUE: The indications, alternatives, benefits, risks, and complications of the procedure were explained to the patient. Written informed consent was obtained and placed in the chart. The thyroid region was examined sonographically and a site was chosen for ultrasound guided percutaneous sampling. The skin was prepared and draped in the usual fashion, and anesthetized with 1% lidocaine infiltrated from the skin down to the thyroid gland. Multiple passes were then performed, with contents emptied into an appropriate pathology specimen container. A bandage was applied to the area of access at completion of the study. COMPARISON: None. FINDINGS: Location(s) of lesion(s) sampled: Right mid to lower lobe Platinum: 22 and 25 gauge hypodermic needles. Number of passes: 6 Medications: 1% lidocaine for local anaesthesia. Complications: None. IMPRESSION: Successful ultrasound-guided thyroid nodule fine needle aspiration, with cytology results pending. Please see chart below for management recommendations based on cytology results. [facility] ReportingRecommendationsNon-diagnostic* Repeat US-guided FNA, with on-site cytology evaluation if possible. * Repeated non-diagnostic nodules without high suspicion US features: close observation vs surgical consult. * Consider surgery if nodule has high suspicion US features, grows >20% in 2 dimensions on followup, or patient has clinical risk factors for malignancy. Benign* If nodule has high suspicion US features: repeat US and FNA within 12 months. * If nodule has low to intermediate suspicion US features: repeat US at 12-24 months. If nodule grows (20% increase in at least 2 dimensions, with minimal increase of 2 mm or >50% change in volume), or development of new suspicious US features, then repeat FNA or continue followup. * If nodule has very low suspicion US features: followup US at >24 months. Atypia of undetermined significance, follicular lesion of undetermined significanceRepeat FNA, molecular testing, followup US, or surgical consult.Follicular neoplasm, suspicious for follicular neoplasmSurgical consult; also consider molecular testing. Suspicious for malignancySurgical consult.MalignantSurgical consult. Dictated by: Alex Mitchell M.D. on 06/27/2021 at 12:19 Approved by: Alex Mitchell M.D. on 06/27/2021 at 12:20
--- NOTE | 2021-06-27 | PATH_ITS ---
Note [facility] Accession Number: [id number] TESTS RESULT FLAG UNITS REF RANGE LAB Clinician Provided Cytology Information No. of containers..01 Other (Miscellaneous) No. of containers..00 Previously Prepared Cytology Slide Source: RIGHT THYROID NODULE DIAGNOSIS: RIGHT THYROID NODULE NEGATIVE FOR MALIGNANT CELLS. B[place] CATEGORY II. SPECIMEN CONSISTS OF BENIGN FOLLICULAR CELLS AND RELATIVELY ABUNDANT COLLOID, CONSISTENT WITH A COLLOID NODULE. Pathologist ICD10: E04.1 Signed out by: Moriah Cedeno MD, Pathologist NPI- [id number] Performed by: Omero Meraz, Cotton Presser ([facility]) Gross description: 30 CC, PINK, CLEAR RECIEVED: IN CYTOLYT WITH 5 ALCOHOL FIXED AND 5 QUICK STAINED SLIDES ALSO 1 RNA VIAL WAS RECEIVED FOR FURTHER TESTING. /VDU 06/28/2021 0555 [facility] FLAG LEGEND: L-Low Normal,H-High Normal,LL-Alert Low,HH-Alert High <-Panic Low,>-Panic High,A-Abnormal,AA-Critical Abnormal Performed at: 01 =Z [facility] [address], [place] [address] Armin Pitts MD, Performed at: 01 [facility] [address], [place], [place] [id number] MD Armin Pitts MD Phone: [phone]
== END ==
PROVIDERS: PCP Student in an Organized Health Care Education/Training Program; Referring Provider Otolaryngology; Visit Provider Otolaryngology
DX: E04.2 Nontoxic multinodular goiter (principal)
CPT/HCPCS: 10005

== ENCOUNTER → 2021-06-29 10:37 | Outpatient (CLI) | payer OTHER, MEDICAID, SELFPAY ==
--- NOTE | 2021-06-29 13:27 | DI.MRI.S_ITS ---
PROCEDURE: MR LUMBAR SPINE WO CON INDICATIONS: Lumbago with sciatica, right side TECHNIQUE: Noncontrast sagittal T1 spin echo and T2 fast echo, sagittal STIR, axial T1 and T2 fast spin echo through the lumbar spine. In cases with scoliosis, additional coronal T2 fast spin echo may be performed. COMPARISON: [facility], MR, L-SPINE WITHOUT CONTRAST, 03/21/2016, 17:24. [facility], CR, XR LUMBAR SPINE 2 OR 3 VIEWS, 06/10/2021, 12:31. FINDINGS: Image quality: This examination is limited by involuntary motion artifact. Alignment and Curvature: Mild dextroconvex scoliotic curvature is seen. Bone Marrow: Marrow is of normal overall signal. No acute vertebral body compression fractures. Spinal Cord: Conus medullaris terminates at the L1 level. Visualized cord demonstrates normal signal and size. Paraspinous Soft Tissues: No paravertebral masses. T12-L1: Normal appearance. L1-L2: The disc height is well-preserved. Loss of disc signal is seen at this level. Mild to moderate disc bulge is seen, which is eccentric to the right. Moderate facet joint hypertrophy is seen. Mild bilateral neural foraminal narrowing is seen. No significant central canal narrowing is seen. Mild progression compared to 2016. L2-L3: Moderate to severe loss of disc height and disc signal can be seen. Reactive marrow endplate changes are seen, which are hyperintense on T1-weighted and T2-weighted imaging and most consistent with fatty metaplasia (Modic type II changes). At least moderate disc bulge is seen, which is eccentric to the right. Mild to moderate facet hypertrophy is seen. Moderate bilateral neural foraminal narrowing can be seen, left worse than right. Mild central canal narrowing is seen. When comparison is made with the prior images, these findings are similar. L3-L4: At least moderate loss of disc height and disc signal can be seen. At least moderate disc bulge is seen at this level. Moderate to prominent facet hypertrophy is seen. There is moderate to severe bilateral neural foraminal narrowing seen. Moderate to severe central canal narrowing is seen. These imaging findings have progressed compared to the prior study. L4-L5: Moderate to severe loss of disc height and disc signal can be seen. Reactive marrow endplate changes are seen, which are hyperintense on T1-weighted and T2-weighted imaging and most consistent with fatty metaplasia (Modic type II changes). At least moderate disc bulge is seen at this level. Moderate to prominent facet hypertrophy is seen. There is at least moderate bilateral neural foraminal narrowing seen, right worse than left. There is a degree of compression seen upon the exiting nerve roots. Moderate central canal narrowing is seen. Compared to 2016, these degenerative changes are mildly progressed. L5-S1: Moderate loss of disc height is seen. Loss of disc signal is seen. Moderate disc bulge is seen. There is a central/left disc extrusion seen, with inferior migration of the disc material, as on series 5, image 29 and on series 4, image 9. Moderate facet joint hypertrophy is seen. There is moderate to severe bilateral neural foraminal narrowing seen, left worse than right. Mild central canal narrowing is seen. The disc extrusion is new compared to the prior examination. S1-S2: A transitional, rudimentary disc is seen. IMPRESSION: Multiple levels of lumbar spine degenerative change are seen, which are overall progressed compared to 2016. Dictated by: Sp Caceres M.D. on 06/29/2021 at 13:55 Approved by: Sp Caceres M.D. on 06/29/2021 at 14:01
== END ==
PROVIDERS: PCP Student in an Organized Health Care Education/Training Program; Referring Provider Orthopaedic Surgery; Visit Provider Orthopaedic Surgery
DX: M47.816 Spondylosis without myelopathy or radiculopathy, lumbar region (principal); M54.41 Lumbago with sciatica, right side; M47.817 Spondylosis without myelopathy or radiculopathy, lumbosacral region
CPT/HCPCS: 72148

== ENCOUNTER 2021-11-22 15:47 | Emergency (ER) | payer OTHER, MEDICAID, SELFPAY ==
[2021-11-22 16:02] VITALS: BP 135/93; PULSE 74; RESP 20; TEMP 36.6; O2SAT 96; BMI 55.3
--- NOTE | 2021-11-22 16:38 | ED.FEVER ---
HPI - Fever <Tashi Rosario PA-C - Last Filed: 11/22/21 16:44> General Chief Complaint: Fever Stated Complaint: COVID + UPSET STOMACH NAUSEA COUGH DIARRHEA TIRED Time Seen by Provider: 11/22/21 16:18 Source: patient and family Mode of arrival: Wheelchair History of Present Illness HPI Narrative: Patient is a 71-year-old female who presents to the ED after testing positive yesterday for COVID. She is not a vaccinated and has a history of splenectomy that she had done back in the mid 90s. She reports with no symptoms at this point she denies any shortness of breath she denies any change in her chronic cough. She does suffer from difficulty with swallowing and ongoing cough in the past she does also have chronic pain and spine problems. Patient denies any recent history of any pneumonia. No reported nausea vomiting diarrhea. No shortness of breath with activity nor orthopnea. Patient does report a low-grade fever of 99.4 that started yesterday. Related Data Allergies Allergy/AdvReac Type Severity Reaction Status Date / Time Iodine and Iodide Containing Allergy Verified 11/22/21 16:05 Produc Review of Systems <Tashi Rosario PA-C - Last Filed: 11/22/21 16:44> Review of Systems ROS Unobtainable: All systems reviewed & are unremarkable except as noted in HPI and below Constitutional Constitutional: Denies chills, Denies fatigue, Reports fever(s), Denies frequent falls, Denies lethargy and Denies weakness Eyes Eyes: Denies change in vision, Denies eye discharge, Denies irritation and Denies loss of vision ENT Ears, Nose, Mouth, and Throat: Denies change in voice, Denies dizziness, Denies neck pain, Denies sore throat and Denies throat swelling Cardiovascular Cardiovascular: Denies chest pain, Denies irregular heart rhythm, Denies lightheadedness, Denies palpitations, Denies dyspnea, Denies dyspnea on exertion and Denies orthopnea Respiratory Respiratory: Denies cough, Denies dyspnea, Denies dyspnea on exertion and Denies wheezing Gastrointestinal Gastrointestinal: Denies abdominal pain, Denies change in bowel habits, Denies diarrhea, Denies nausea and Denies vomiting Genitourinary Genitourinary: Denies hematuria, Denies flank pain, Denies urinary incontinence and Denies urinary urgency Musculoskeletal Musculoskeletal: Denies back pain, Denies muscle weakness, Denies neck pain, Denies numbness and Denies tingling Integumentary/Breasts Skin/Breast: Denies pruritus, Denies erythema, Denies rash and Denies wounds Neurologic Neurologic: Denies behavioral changes, Denies confusion, Denies dizziness, Denies frequent falls, Denies loss of vision, Denies numbness, Denies tingling and Denies weakness Psychiatric Psychiatric: Denies anxiety, Denies behavioral changes, Denies confusion, Denies depression, Denies homicidal ideation and Denies suicidal ideation Endocrine Endocrine: Denies fatigue, Denies flushing and Denies palpitations Hematologic/Lymphatic Hematologic/Lymphatic: Denies easy bruising Allergic/Immunologic Allergic/Immunologic: Denies urticaria, Denies throat swelling and Denies wheezing Patient History <Tashi Rosario PA-C - Last Filed: 11/22/21 16:44> Medical History CVA (cerebral vascular accident) Diverticulitis Surgical History History of cholecystectomy History of splenectomy Hx of appendectomy Social History lives independently: Yes Smoking Status: Never smoker Smoking Status: Never smoker alcohol intake frequency: 0-2 drinks per day Substance Use Type: does not use Exam <Tashi Rosario PA-C - Last Filed: 11/22/21 16:44> Initial Vital Signs Initial Vital Signs: Vital Signs Temperature 98 F 11/22/21 16:02 Pulse Rate 74 11/22/21 16:02 Respiratory Rate 20 11/22/21 16:02 Blood Pressure 135/93 H 11/22/21 16:02 Pulse Oximetry 96 11/22/21 16:02 Const General: cooperative, healthy appearing, comfortable and well developed Nutritional Appearance: obese Orientation: Orientation [facility] Head: normal to inspection, normocephalic and atraumatic Ears: hearing grossly normal bilaterally and external ears normal Nose: external nose normal and nares normal Face and sinus: normal facial exam and sinuses nontender Mouth: oral mucosae normal Neck Neck: normal visual inspection, full ROM and no meningeal signs Thyroid: thyroid normal Resp Effort & Inspection: normal respiratory effort and able to speak in complete sentences Auscultation: clear to auscultation bilaterally Cardio Palpation: normal PMI Rate: regular rate Rhythm: regular rhythm Heart Sounds: S1 normal and S2 normal GI Inspection: normal to inspection Palpation: soft Percussion: normal to percussion <Corey Mann DO - Last Filed: 11/22/21 16:56> Initial Vital Signs Initial Vital Signs: Vital Signs Temperature 98 F 11/22/21 16:02 Pulse Rate 74 11/22/21 16:02 Respiratory Rate 20 11/22/21 16:02 Blood Pressure 135/93 H 11/22/21 16:02 Pulse Oximetry 96 11/22/21 16:02 Course <Tashi Rosario PA-C - Last Filed: 11/22/21 16:44> Vital Signs Vital signs: Vital Signs - 8 hr 11/22/21 16:02 Temperature 98 F Pulse Rate 74 Respiratory Rate 20 Blood Pressure 135/93 H Pulse Oximetry 96 <DO Jeanmarie Bonilla Last Filed: 11/22/21 16:56> Vital Signs Vital signs: Vital Signs - 8 hr 11/22/21 16:02 Temperature 98 F Pulse Rate 74 Respiratory Rate 20 Blood Pressure 135/93 H Pulse Oximetry 96 MDM - Fever <Tashi Rosario PA-C - Last Filed: 11/22/21 16:44> Differential Diagnosis Differential diagnosis: Likely other MDM Narrative Medical decision making narrative: Patient was seen today for COVID. She does not have any symptoms related to COVID. I discussed self isolation procedure with her. Since she does not have any symptoms she will be discharged home and told to self isolate she can return to the ED if she starts developing the symptoms of shortness of breath or cough or fever. Discharge Plan Departure Patient Disposition: Home Clinical Impression: COVID Instructions: DI for Fever (Symptom) -- Adult, DI for COVID-19 (Suspected or Confirmed ) Activity Restrictions/Additional Instructions: You were seen today for testing positive for COVID. Due to the fact that you do not appear to have any new symptoms today I would recommend that you isolate at home and if you start to develop more severe shortness of breath. Cough. Fever. You can return to the ED for re-evaluation or you can contact her PCP. Referrals: Maura Roldan MD [Primary Care Provider] - <Corey Mann DO - Last Filed: 11/22/21 16:56> Cosign ED Attending Cosignature Attestation: Dr Mann Co-Sign Statement: I was available for consultation during this patient's emergency department visit. This chart is signed by myself for administrative purposes only. I did not have direct contact with this patient during this visit. They were seen independently by the APC.
[2021-11-22 17:08] VITALS: BP 131/69; PULSE 70; RESP 18; O2SAT 97
== END 2021-11-22 17:09 | disposition home or self-care (01) ==
PROVIDERS: Emergency Provider Physician Assistant; PCP Student in an Organized Health Care Education/Training Program
DX: U07.1 COVID-19 (principal)
CPT/HCPCS: 99281

== ENCOUNTER → 2022-04-25 11:04 | Outpatient (CLI) | payer OTHER, MEDICAID, SELFPAY ==
--- NOTE | 2022-04-25 | DI.CT.S_ITS ---
PROCEDURE: CT SOFT TISSUE NECK WO CON INDICATIONS: Dysphagia, unspecified TECHNIQUE: Helical axial CT of the neck was obtained without intravenous contrast and reformatted in multiple planes. Radiation dose reduction was achieved utilizing automated exposure control and/or weight-based dosing. Lack of IV contrast limits assessment of solid and vascular structures particularly for trauma and neoplasm. COMPARISON: [facility], CT, SOFT TISSUE NECK WITHOUT CONTR, 10/02/2017, 10:51. FINDINGS: Skull Base: The visualized intracranial contents, skull, and orbits are unremarkable. Visualized paranasal sinuses are clear. Pharynx and Larynx: The nasopharyngeal airway is patent and midline. Parapharyngeal soft tissues including palatine tonsils and base of the tongue are normal. Retropharyngeal space unremarkable. Normal appearance of the false and true vocal cords. Muscles and Fascial Planes: Fascial planes are well maintained. No abscess or mass lesion. Lymph Nodes: No evidence of adenopathy. Vasculature: Unremarkable. Submandibular and Parotid Glands: Normal in size and attenuation. Thyroid: Unremarkable. No enlarged or calcified nodules. Bones: No acute fracture. No osteolytic or blastic lesion is evident. Normal bone mineralization. C5-6 anterior cervical discectomy and fusion with low profile hardware good position. Multilevel degenerative disc disease and arthropathy in the cervical spine noted. Glenohumeral bilateral joint space narrowing with marginal osteophytes Lung Apices: The visualized lung apices are clear. IMPRESSION: Unremarkable noncontrast CT of the neck C5-6 anterior cervical discectomy and fusion Approved by: Farhat Friedman M.D. on 04/25/2022 at 11:20
== END ==
PROVIDERS: PCP Student in an Organized Health Care Education/Training Program; Referring Provider Otolaryngology; Visit Provider Otolaryngology
DX: M54.2 Cervicalgia (principal); R13.10 Dysphagia, unspecified; E04.2 Nontoxic multinodular goiter; Z98.1 Arthrodesis status
CPT/HCPCS: 70490

== ENCOUNTER → 2022-11-06 15:01 | Outpatient (CLI) | payer OTHER, MEDICAID, SELFPAY ==
--- NOTE | 2022-11-06 | DI.RAD.S_ITS ---
PROCEDURE: XR FOOT LT MIN 3V INDICATIONS: pain in 4th metatarsal head, left foot TECHNIQUE: 3 views of the foot were acquired. COMPARISON: None. FINDINGS: No fracture or dislocation. Moderate osteoarthritic changes in the MTP joints of the 1st through 5th digits. Mild osteoarthritic changes in the 1st through 5th interphalangeal joints with hammertoe deformities of the 3rd, 4th, and 5th digits. Mild tarsal degenerative changes. Plantar calcaneal enthesophyte. No suspicious lytic or blastic bone lesion. Soft tissues within normal limits. IMPRESSION: Degenerative changes without acute finding. Approved by: Josephine Dill M.D. on 11/07/2022 at 8:18
== END ==
PROVIDERS: PCP Student in an Organized Health Care Education/Training Program; Referring Provider Podiatrist; Visit Provider Podiatrist
DX: M20.42 Other hammer toe(s) (acquired), left foot (principal); M79.675 Pain in left toe(s)
CPT/HCPCS: 73630

== ENCOUNTER → 2024-06-11 13:56 | Outpatient (CLI) | payer OTHER, MEDICAID, SELFPAY ==
--- NOTE | 2024-06-11 | DI.RAD.S_ITS ---
PROCEDURE: XR DEXA AXIAL SKELETON INDICATIONS: OSTEOPOROSIS SCREENING COMPARISON: 01/20/2019. FINDINGS: Lumbar Spine: Bone mineral density 1.548 g/cm2, T score 4.6. There is interval 9.2 percent decrease in total lumbar spine bone mineral density. Left Hip: Bone mineral density 1.098 g/cm2, T score 1.3. There is interval 2.7 percent decrease in total left hip bone mineral density. Left Femoral Neck: Bone mineral density 0.901 g/cm2, T score 0.5. There is interval 1.9 percent decrease in left femoral neck bone mineral density. Right Hip: Bone mineral density 1.153 g/cm2, T score 1.7. There is interval 1.8 percent increase in total right hip bone mineral density. Right Femoral Neck: Bone mineral density 0.962 g/cm2, T score 1.0. There is interval 13.2 percent increase in right femoral neck bone mineral density. Fracture Risk Calculation (when applicable): 10-year fracture risk of a major osteoporotic fracture 5.7 percent and of a hip fracture 0.3 percent. (T score greater or equal to -1.0 to: NORMAL) (T score from -1.1 to -2.4: OSTEOPENIA) (T score less than or equal to -2.5: OSTEOPOROSIS) IMPRESSION: Normal bone mineral density. Follow-up guidelines as follows: Osteoporosis: Consider a repeat DEXA and Vertebral Fracture Assessment (VFA) exam in 2 years or sooner if medically necessary, to reassess this patient's status. Osteopenia: Consider a repeat DEXA in 2-3 years to reassess this patient's status, or if there is a new clinical indication. Normal: Consider a repeat DEXA in 5 years or sooner, or if there is a new clinical indication. All treatment decisions require clinical judgment and consideration of individual patient factors, including patient preferences, comorbidities, previous drug use, risk factors not captured in the FRAX model (e.g., frailty, falls, vitamin D deficiency, increased bone turnover, interval significant decline in bone density ) and possible under- or over-estimation of fracture risk by FRAX. In addition, the NOF Guide recommends that FDA-approved medical therapies be considered in postmenopausal women and men age >= 50 years with a: * Hip or vertebral (clinical or morphometric) fracture * T-score of <=-2.5 at the spine or hip * Ten-year fracture probability by FRAX of >= 3% for hip fracture or >=20% for major osteoporotic fracture. People with diagnosed cases of osteoporosis or at high risk for fracture should have regular bone mineral density tests. For patients eligible for Medicare, routine testing is allowed once every 2 years. The testing frequency can be increased to one year for patients who have rapidly progressing disease, those who are receiving or discontinuing medical therapy to restore bone mass, or have additional risk factors. Dictated by: Nino Aviles M.D. on 06/12/2024 at 10:51 Approved by: Nino Aviles M.D. on 06/12/2024 at 11:07
== END ==
LOC: RAD 13:56
PROVIDERS: PCP Student in an Organized Health Care Education/Training Program; Referring Provider Student in an Organized Health Care Education/Training Program; Visit Provider Student in an Organized Health Care Education/Training Program
DX: Z13.820 Encounter for screening for osteoporosis (principal); Z78.0 Asymptomatic menopausal state
CPT/HCPCS: 77080

== ENCOUNTER 2024-06-26 08:39 | Day surgery (SDC) | payer OTHER, MEDICAID, SELFPAY ==
[2024-06-24 14:54] VITALS: BMI 55.6
[2024-06-26 09:31] VITALS: BMI 48.8
--- NOTE | 2024-06-26 09:51 | PM.HP.1 ---
History of Present Illness History of Present Illness Date Patient Seen: 06/26/24 Time Patient Seen: 09:30 Chief complaint: Left Carpal Tunnel Release 06/26 Narrative: Patient with numbness to all 5 fingers of the left hand as well as locking and catching to her left middle finger. [facility] Medical History Chronic headache Chronic kidney disease Ischemic cardiomyopathy Chronic systolic (congestive) heart failure CAD (coronary artery disease) A-fib History of CO (myocardial infarction) Cataract Psoriasis Thyroid disease Inflammatory bowel disease BMI 50.0-59.9, adult Spinal stenosis HLD (hyperlipidemia) Fibromyalgia DJD (degenerative joint disease) HTN (hypertension) Asthma Diverticulitis CVA (cerebral vascular accident) Surgical History S/P percutaneous transluminal angioplasty ([employer]) H/O meniscectomy of right knee Hx of LASIK H/O hernia repair S/P complete hysterectomy History of tonsillectomy History of splenectomy Hx of appendectomy History of cholecystectomy Social History household members: spouse lives independently: Yes Smoking Status: Never smoker Meds Home Medications and Allergies Home Medications Medication Instructions Recorded Confirmed Type acetaminophen 500 mg tablet 500 mg PO Q6H PRN Pain, Moderate 06/24/24 06/24/24 History (Tylenol Extra Strength) aspirin 81 mg capsule 81 mg PO DAILY 06/24/24 06/26/24 History atorvastatin 80 mg tablet 80 mg PO BEDTIME 06/24/24 06/24/24 History carvedilol 12.5 mg tablet 18.75 mg PO BID 06/24/24 06/26/24 History cyclobenzaprine 10 mg tablet 10 mg PO BID 06/24/24 06/26/24 History docusate sodium 250 mg capsule 250 mg PO BID PRN Constipation 06/24/24 06/24/24 History gabapentin 300 mg capsule 600 mg PO QID 06/24/24 06/26/24 History lisinopril 40 mg tablet 20 mg PO DAILY 06/24/24 06/24/24 History diphenhydramine HCl 25 mg capsule 25 mg PO DAILY allergy 06/25/24 06/25/24 History (Benadryl) hydrochlorothiazide 12.5 mg capsule 25 mg PO DAILY 06/25/24 06/25/24 History methylsulfonylmethane 1,000 mg 1,000 mg PO DAILY 06/25/24 06/25/24 History capsule nortriptyline 25 mg capsule 25 mg PO BEDTIME 06/25/24 06/25/24 History ondansetron 4 mg disintegrating 2 mg PO Q6-8H PRN Nausea 06/25/24 06/25/24 History tablet potassium chloride 10 mEq 10 meq PO DAILY 06/25/24 06/25/24 History capsule,extended release tizanidine 4 mg tablet 4 mg PO Q6H PRN muscle spasms 06/25/24 06/25/24 History Allergies Allergy/AdvReac Type Severity Reaction Status Date / Time albuterol Allergy Severe Anaphylaxis Verified 06/25/24 07:16 caffeine Allergy Severe Difficulty Verified 06/25/24 07:25 Breathing fluconazole Allergy Severe Difficulty Verified 06/25/24 07:18 Breathing iodine Allergy Severe Difficulty Verified 06/25/24 07:25 Breathing isopropyl alcohol Allergy Severe Difficulty Verified 06/25/24 07:25 Breathing morphine Allergy Severe Anaphylaxis Verified 06/25/24 07:25 Penicillins Allergy Severe Anaphylaxis Verified 06/25/24 07:25 pneumococcal vaccine Allergy Severe Difficulty Verified 06/25/24 07:25 Breathing sodium hypochlorite solution Allergy Severe Wheezing Verified 06/25/24 07:39 Sulfa (Sulfonamide Allergy Severe Difficulty Verified 06/25/24 07:32 Antibiotics) Breathing latex Allergy Mild Wheezing Verified 06/25/24 07:32 methocarbamol Allergy Mild Cramping Verified 06/25/24 07:32 of the Muscles codeine Allergy Difficulty Verified 06/25/24 07:41 Breathing difluprednate [From Durezol] Allergy Wheezing Verified 06/25/24 07:39 fluoxetine Allergy Verified 06/24/24 15:24 Heparin Analogues Allergy Difficulty Verified 06/25/24 07:25 Breathing hydromorphone Allergy Difficulty Verified 06/25/24 07:32 Breathing Iodinated Contrast Media Allergy Verified 06/24/24 15:24 nystatin AdvReac Severe Blister Verified 06/25/24 07:39 sorbitol AdvReac Intermediate Verified 06/25/24 07:39 lidocaine AdvReac Mild ITCHING Verified 06/25/24 07:32 meloxicam AdvReac Mild Vomiting Verified 06/25/24 07:32 adhesive tape AdvReac Rash Verified 06/25/24 07:39 aspirin AdvReac Verified 06/25/24 07:39 sennosides Allergy Severe Abdominal Uncoded 06/25/24 07:32 Pain inhaler Allergy Uncoded 06/24/24 15:24 inhaler, for use with powders Allergy Uncoded 06/24/24 15:24 Exam Narrative Exam Narrative: Decreased sensation in both the median and ulnar nerve distribution but no sign of any thenar atrophy or intrinsic wasting. Positive locking and catching to the middle finger with hypertrophy at the A1 jakob and tenderness to palpation. Stiffness to the PIP joint but able to fully extend but difficulty with full flexion. 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 Patient also has a left middle finger trigger finger. All of this has been unresponsive to conservative treatment and patient is interested in proceeding with surgery to decompress the median nerve at the carpal tunnel and the ulnar nerve at Guyon's canal as well as do a left middle finger trigger finger release. The risk, benefits, alternatives, possible complications, operative course, and postop outcomes were discussed. Complications including but not limiting to bleeding, infection, fracture, nerve injury, continued pain postoperatively or instability postoperatively were discussed in detail. Medical complications including but not limited to deep venous thrombosis event, anesthesia complications with excessive bleeding, vascular events or cardiac events and other possible complications were discussed in detail. Need for postoperative rehabilitation and anticipated hospital stay and clinical course were discussed in detail. Patient acknowledges understanding and elects to proceed with surgery. Time-Based Coding :: [TOTAL MINUTES] spent with patient and on the chart (including review of chart, obtaining history, exam, reviewing outside data, placing orders, documenting exam and treatment plan, and counseling patient) on [DATE].
--- NOTE | 2024-06-26 09:53 | PM.PREOP ---
Pre-operative Note Interval Note History & Physical reviewed/Exam performed by Physician: Yes Changes to H&P: No
[2024-06-26] MEDS: CLINDAMYCIN 900 MG/50 ML PIGGYBACK 50 MG IV (10:13)
--- NOTE | 2024-06-26 10:31 | SUR.OPER ---
Supine on padded OR bed, head on pillow, arms secured on padded arm boards at <90 degrees abduction, legs uncrossed, safety belt at thigh, tape over blanket over lower legs.
[2024-06-26] MEDS: BUPIVACAINE 0.5% W/ EPI (PF) 30 ML VIAL 10 ML INJ (10:46)
[2024-06-26 10:52] VITALS: BP 142/65; PULSE 63; RESP 16; O2SAT 94
--- NOTE | 2024-06-26 11:00 | P.OP_ITS ---
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 Post-op diagnosis: same Procedure & Clinicians Procedure: Left carpal tunnel release CPT code 12373 Decompression ulnar nerve at left wrist CPT code 50833 Left middle finger trigger finger release CPT code 78255 Same procedure as scheduled: Yes Indications: Numbness to the left hand as well as triggering to the left middle finger Surgeon: Edvin Kaur Click Yes if Unassisted: Yes Anesthesia Type: Peripheral nerve block (Beir block) Operative Notes Findings: Compression of the left median nerve at the carpal tunnel, compression of the left ulnar nerve at Guyon's canal. Locking and catching of the flexor tendons to the left middle finger at the A1 jakob. Closure Type: primary Estimated Blood Loss (mL): 0 Tourniquet time (min): 31 Procedure in detail: On date of service, the patient was met in the holding area. Patients operative site was signed and witnessed by the OR staff. The surgery was once again discussed with the patient, and any remaining questions they had were answered fully. Patient was taken back to the operating theater and placed on the ope rating table in a supine position. Great care was taken to ensure that all bony prominences were carefully padded. A well-padded tourniquet was placed up along the upper extremity. A timeout was performed to verify patient's name, procedure, and operative site. The left arm was then prepped and draped in the normal sterile fashion. A 15 blade was used to incise through skin In the center of the palm. Pickups and tenotomy scissors were used to dissect down until the palmar fascia was visualized. The palmar fascia was then sharply incised using a 15 blade. This gave us good visualization of the carpal ligament. A small opening was made into the carpal ligament, and a curved hemostat was placed into that opening. A 15 blade was then used to sharply incise the carpal ligament with the structures beneath being protected by the hemostat. Pickups and Metzenbaum scissors were used to complete the decompression both distally and proximally. This provided a complete decompression of the median nerve. Next, we turned our attention to the left ulnar nerve. We are able to use the same incision for the carpal tunnel but dissect further more ulnarly until the roof of Guyon's canal was visualized. This was sharply excised using a 15 blade. The rest of Guyon's canal was decompressed using Metzenbaum scissors providing a complete decompression of the ulnar nerve. The wound was then copio usly irrigated and then closed with nylon. Next we turned our attention to the left middle finger. Fifteen blade was used to incise through skin and fascial tissue in the distal palmar crease in line with the middle finger. Pickups and tenotomies were then used to bluntly dissect down until the A1 jakob was visualized. The neurovascular bundles on either side were identified and protected. A 1 jakob was sharply incised using a 15 blade. It was completely released allowing full flexion and extension of the middle finger without any locking or catching. Wound was copiously irrigated and then closed with nylon. The hand was then cleaned, dried, dressed and patient was taken to the PACU in stable condition. Complications: none Post-operative Condition: stable Disposition: PACU Plan for aftercare: Patient will follow our postoperative protocol for a carpal tunnel release.
[2024-06-26 11:02] VITALS: BP 160/76; PULSE 82; RESP 116; O2SAT 95
[2024-06-26] MEDS: ACETAMINOPHEN 325 MG TABLET 975 MG PO (11:20)
[2024-06-26 11:26] VITALS: BP 155/75; PULSE 61; RESP 16; TEMP 36.7; O2SAT 95
== END 2024-06-26 11:33 | disposition home or self-care (01) ==
PROVIDERS: PCP Student in an Organized Health Care Education/Training Program; Referring Provider Orthopaedic Surgery; Visit Provider Orthopaedic Surgery
PROC: (CPT 64721; principal; 2024-06-26 10:45)
DX: G56.02 Carpal tunnel syndrome, left upper limb (principal); M65.332 Trigger finger, left middle finger; G56.22 Lesion of ulnar nerve, left upper limb; E66.01 Morbid (severe) obesity due to excess calories; Z68.43 Body mass index [BMI] 50.0-59.9, adult
CPT/HCPCS: 64719; 26055; 64721

== ENCOUNTER → 2025-06-22 12:53 | Outpatient (CLI) | payer OTHER, MEDICAID, SELFPAY ==
--- NOTE | 2025-06-22 13:01 | DI.US.S_ITS ---
PROCEDURE: US PERIPH VENOUS LOW EXTREM BI INDICATIONS: LEG EDEMA TECHNIQUE: Real-time imaging, as well as color and pulse Doppler interrogation, were performed of the deep veins of both legs from the inguinal ligament to the popliteal fossa, with documentation of the visualized calf veins. COMPARISON: None. FINDINGS: Right: The common femoral, femoral, popliteal, and the visualized calf veins are normally compressible, and free of intraluminal thrombus. Color and pulse Doppler demonstrate normal phasic intravascular flow. There is normal augmentation response to distal compression maneuver. Left: The common femoral, femoral, popliteal, and the visualized calf veins are normally compressible, and free of intraluminal thrombus. Color and pulse Doppler demonstrate normal phasic intravascular flow. There is normal augmentation response to distal compression maneuver. IMPRESSION: No findings of deep venous thrombosis in either lower extremity. Dictated by: Gene Agudelo M.D. on 06/22/2025 at 14:22 Approved by: Gene Agudelo M.D. on 06/22/2025 at 14:23
== END ==
PROVIDERS: PCP Family Medicine; Referring Provider Family Medicine; Visit Provider Family Medicine
DX: R60.0 Localized edema (principal)
CPT/HCPCS: 93970